=== PATIENT | female | born 1985 | race Caucasian/White ===

== ENCOUNTER 2020-06-07 16:43 | Emergency (ER) | payer OTHER, SELFPAY ==
[2020-06-07 17:01] VITALS: BP 124/60; BP 128/80; PULSE 112; PULSE 96; RESP 16; TEMP 36.4; O2SAT 97; O2SAT 99; BMI 23.1
--- NOTE | 2020-06-07 17:36 | ED.SEIZURE ---
HPI - Seizure General Chief Complaint: Seizure Stated Complaint: seizures Time Seen by Provider: 06/07/20 17:26 Source: patient and EMS Mode of arrival: EMS Limitations: no limitations History of Present Illness HPI Narrative: Patient comes emergency room complaining of 1 seizure. 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 Patient takes Lamictal 200 mg twice a day. Patient states she is very compliant with her medication. States she has been under a lot of stress which could have triggered the seizure. It was a witnessed seizure by her . The patient states that she had an aura, Related Data Home Medications Medication Instructions Recorded Confirmed lamotrigine 100 mg tablet 100 mg PO DAILY 04/09/20 04/10/20 Previous Rx's Medication Instructions Recorded sertraline 100 mg tablet 200 mg PO BEDTIME 90 Days #180 tab 05/31/20 Allergies Allergy/AdvReac Type Severity Reaction Status Date / Time potassium Allergy Unknown panic Verified 06/07/20 17:09 attacks PMFSH Past Medical History Medical History Anxiety, generalized CVA (cerebral vascular accident) Seizures Surgical History History of bilateral tubal ligation History of craniotomy Family History Family History (Updated 04/07/20 @ 11:26 by Pam Hale, A, [facility]) Father No problems noted. Mother No problems noted. Maternal Aunt Colon cancer Brother No problems noted. Brother No problems noted. Sister No problems noted. Daughter No problems noted. Social History Social History Smoked in Last 30 Days: No Use of substances other than those prescribed or required for medical reasons: No Advance Directives: No Advance Directives Information Provided: Yes Physical Exam Vital Signs: Vital Signs: Last Vital Signs Temp 97.5 F 06/07/20 17:01 Pulse 98 06/07/20 17:49 Resp 16 06/07/20 17:49 BP 132/83 06/07/20 17:49 Pulse Ox 97 06/07/20 17:49 Body Mass Index 23.1 Appearance: Alert. Oriented X3. No acute distress. Seems mildly postictal Eyes: Pupils equal, round and reactive to light. ENT: Pharynx normal. Neck: Normal inspection. Neck supple. No lymph nodes noted. No crepitus CVS: Normal heart rate and rhythm. Pulses normal. Normal S1 and S2 Respiratory: No respiratory distress. Breath sounds normal. No Wheezing. No rales Abdomen: Soft and nontender. No rigidity. No distention. good BS x4 Skin: Skin warm and dry. Normal skin color. Normal skin turgor. Extremities: No lower extremity edema. No lower extremity edema. No Lacerations. No Rash, chronic contracture on the left upper extremity Neuro: Oriented X 3. No motor deficit. No sensory deficit. Moving all extermities. No slurred speech. Course Course Course Narrative: Patient has not had any seizures since she got to the emergency room. Patient is feeling back to normal. Patient was given 1 dose of lamotrigine when she got here, and her regular home dose dose prior to discharge. Patient will call tomorrow her neurologist' office in [place] MDM - Seizure Lab Data Result diagrams: 06/07/20 18:03 06/07/20 19:20 Labs: Lab Results 06/07/20 06/07/20 06/07/20 Range/Units 18:03 18:03 18:04 WBC 11.7 H (4.8-10.8) X10*3/uL RBC 4.59 (4.20-5.50) X10*6/uL Hgb 13.8 (12.0-16.0) g/dl Hct 43.4 (37-47) % MCV 94.6 (80-98) fL MCH 30.1 (27.0-33.0) pg MCHC 31.8 (31.0-35.0) g/dl RDW 13.0 (11.0-16.0) % Plt Count 366 (160-400) X10*3/uL MPV 8.8 L (9.4-12.3) fL Immature Gran % (Auto) 0.2 (0.0-0.4) % Neut % (Auto) 80.0 H (45-73) % Lymph % (Auto) 12.4 L (20-40) % [place] % (Auto) 6.8 (2-11) % Eos % (Auto) 0.3 (0-4) % Baso % (Auto) 0.3 (0-2) % Lymph # (Auto) 1.5 (1.2-4.9) X10*3/uL [place] # (Auto) 0.8 (0.1-1.2) X10*3/uL Eos # (Auto) 0.0 (0.0-0.4) X10*3/uL Baso # (Auto) 0.0 (0.0-0.2) X10*3/uL Abs Immat Gran (auto) 0.02 (0.00-0.03) X10*3/uL Absolute Neuts (auto) 9.4 H (2.0-8.3) X10*3/uL Absolute Nucleated RBC 0.000 (0.0-0.012) X10*3/uL Nucleated RBC % (auto) 0.0 (0.0-0.2) /100WBC Sodium Cancelled Potassium Cancelled Chloride Cancelled Carbon Dioxide Cancelled Anion Gap Cancelled BUN Cancelled Creatinine Cancelled Estim Creat Clear Calc Cancelled Estimated GFR Cancelled Random Glucose Cancelled Calcium Cancelled Total Bilirubin Cancelled Direct Bilirubin Cancelled AST Cancelled ALT Cancelled Alkaline Phosphatase Cancelled Total Protein Cancelled Albumin Cancelled Urine Color Urine Appearance Urine pH (5.0-8.0) Ur Specific [place] (1.005-1.025) Urine Protein (NEG-TRACE) MG/DL Urine Glucose (UA) (NEG) MG/DL Urine Ketones (NEG) MG/DL Urine Blood (NEG) Urine Nitrite (NEG) Ur Leukocyte Esterase (NEG) Urine Test (NEGATIVE) Lamotrigine Cancelled 06/07/20 06/07/20 06/07/20 Range/Units 18:04 19:20 19:20 WBC (4.8-10.8) X10*3/uL RBC (4.20-5.50) X10*6/uL Hgb (12.0-16.0) g/dl Hct (37-47) % MCV (80-98) fL MCH (27.0-33.0) pg MCHC (31.0-35.0) g/dl RDW (11.0-16.0) % Plt Count (160-400) X10*3/uL MPV (9.4-12.3) fL Immature Gran % (Auto) (0.0-0.4) % Neut % (Auto) (45-73) % Lymph % (Auto) (20-40) % [place] % (Auto) (2-11) % Eos % (Auto) (0-4) % Baso % (Auto) (0-2) % Lymph # (Auto) (1.2-4.9) X10*3/uL [place] # (Auto) (0.1-1.2) X10*3/uL Eos # (Auto) (0.0-0.4) X10*3/uL Baso # (Auto) (0.0-0.2) X10*3/uL Abs Immat Gran (auto) (0.00-0.03) X10*3/uL Absolute Neuts (auto) (2.0-8.3) X10*3/uL Absolute Nucleated RBC (0.0-0.012) X10*3/uL Nucleated RBC % (auto) (0.0-0.2) /100WBC Sodium 137 Potassium 4.3 Chloride 100 Carbon Dioxide 28 Anion Gap 13 BUN 10 Creatinine 0.86 Estim Creat Clear Calc 97.2 Estimated GFR > 60 Random Glucose 124 H Calcium 10.0 Total Bilirubin 0.3 Direct Bilirubin < 0.2 AST 12 ALT 15 Alkaline Phosphatase 71 Total Protein 8.0 Albumin 4.7 Urine Color YELLOW Urine Appearance CLEAR Urine pH 6.0 (5.0-8.0) Ur Specific [place] 1.025 (1.005-1.025) Urine Protein NEG (NEG-TRACE) MG/DL Urine Glucose (UA) NEG (NEG) MG/DL Urine Ketones NEG (NEG) MG/DL Urine Blood NEG (NEG) Urine Nitrite NEG (NEG) Ur Leukocyte Esterase NEG (NEG) Urine Test NEGATIVE (NEGATIVE) Lamotrigine Discharge Plan Discharge Clinical Impression: Generalized seizure Patient Disposition: Home, Self-Care Instructions: Generalized Tonic Clonic Seizures (ED) Additional Instructions: Please follow-up with your neurologist tomorrow. Please follow-up with your primary care physician tomorrow. If you have any worsening or new symptoms, please return to the emergency room or call 911 Prescriptions: No Action sertraline 100 mg tablet 200 mg PO BEDTIME 90 Days Qty: 180 RF: 1 lamotrigine 100 mg tablet 100 mg PO DAILY RF: 0
[2020-06-07] MEDS: lamoTRIgine 100 MG TABLET 200 MG PO ×2 (17:47→20:32)
[2020-06-07] MEDS: Acetaminophen 325 MG TABLET 650 MG PO (17:47)
[2020-06-07 17:49] VITALS: BP 132/83; PULSE 98; RESP 16; O2SAT 97
[2020-06-07 18:10] LABS: MANUAL DIFF FLAG NO
[2020-06-07 18:11] LABS: Basophils Percent Auto 0.3 % (0-2); Eosinophils Percent Auto 0.3 % (0-4); Hematocrit 43.4 % (37-47); Hemoglobin 13.8 g/dl (12.0-16.0); Imm Gran Abs Auto 0.02 X10*3/uL (0.00-0.03); Imm Gran Pct Auto 0.2 % (0.0-0.4); Lymphocytes Absolute Auto 1.5 X10*3/uL (1.2-4.9); Lymphocytes Percent Auto 12.4 % (20-40); Mean Corpuscular HGB Conc 31.8 g/dl (31.0-35.0); Mean Corpuscular Hemoglobin 30.1 pg (27.0-33.0); Mean Corpuscular Volume 94.6 fL (80-98); Mean Platelet Volume 8.8 fL (9.4-12.3); Monocytes Absolute Auto 0.8 X10*3/uL (0.1-1.2); Monocytes Percent Auto 6.8 % (2-11); Neutrophils Absolute Auto 9.4 X10*3/uL (2.0-8.3); Platelet Count 366 X10*3/uL (160-400); Red Blood Count 4.59 X10*6/uL (4.20-5.50); White Blood Count 11.7 X10*3/uL (4.8-10.8)
[2020-06-07 18:13] LABS: Glucose Urine UA NEG (NEG); Leukocyte Esterase Urine NEG (NEG); Nitrite Urine NEG (NEG); Specific Gravity - Urine 1.025 (1.005-1.025); Urine Blood NEG (NEG); Urine Ketones NEG (NEG); Urine Protein NEG (NEG-TRACE)
[2020-06-07 18:15] LABS: Appearance Urine CLEAR; Color Urine YELLOW
[2020-06-07 18:16] LABS: UPreg QC Valid YES; Urine Pregnancy NEGATIVE (NEGATIVE)
[2020-06-07 19:52] LABS: Anion Gap 13 (12-20); Blood Urea Nitrogen 10 mg/dL (9-16); Carbon Dioxide 28 mmol/L (22-29); Chloride 100 mmol/L (96-108); Creatinine Clr Calc Pharmacy 97.2; Estimated Glomerular Filt Rate > 60; Glucose Random 124 mg/dL (60-115); Potassium 4.3 mmol/l (3.3-5.1); Sodium 137 mmol/L (135-145)
[2020-06-07 19:54] LABS: Alanine Aminotransferase 15 U/L (0-31); Albumin Level 4.7 g/dL (3.5-5.0); Alkaline Phosphatase 71 U/L (39-117); Aspartate Amino Transferase 12 U/L (5-31); Bilirubin Direct < 0.2 mg/dL (0.0-0.5); Bilirubin Total 0.3 mg/dL (0.0-1.0)
[2020-06-07] MEDS: Sertraline HCL 100 MG TABLET 200 MG PO (20:32)
[2020-06-13 17:23] LABS: Lamotrigine Lamictal 10.1 mcg/mL (4.0-18.0)
== END 2020-06-07 20:46 | disposition home or self-care (01) ==
PROVIDERS: Emergency Provider Emergency Medicine; PCP Internal Medicine
DX: G40.409 Other generalized epilepsy and epileptic syndromes, not intractable, without status epilepticus (principal); F41.1 Generalized anxiety disorder
CPT/HCPCS: 36415; 80048; 80076; 80175; 81003; 81025; 85025; 99283; 99284

== ENCOUNTER 2020-07-18 13:33 | Emergency (ER) | payer OTHER, SELFPAY ==
[2020-07-18 13:59] VITALS: BP 122/85; BP 126/72; PULSE 102; PULSE 91; RESP 17; TEMP 36.7; O2SAT 98; O2SAT 99; BMI 21.8
--- NOTE | 2020-07-18 14:06 | PC.NURSE ---
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
[2020-07-18 14:48] LABS: MANUAL DIFF FLAG NO
[2020-07-18 14:50] LABS: Basophils Percent Auto 0.5 % (0-2); Eosinophils Absolute Auto 0.1 X10*3/uL (0.0-0.4); Eosinophils Percent Auto 1.1 % (0-4); Hematocrit 39.7 % (37-47); Hemoglobin 12.5 g/dl (12.0-16.0); Imm Gran Abs Auto 0.01 X10*3/uL (0.00-0.03); Imm Gran Pct Auto 0.2 % (0.0-0.4); Lymphocytes Absolute Auto 1.4 X10*3/uL (1.2-4.9); Lymphocytes Percent Auto 21.5 % (20-40); Mean Corpuscular HGB Conc 31.5 g/dl (31.0-35.0); Mean Corpuscular Volume 95.4 fL (80-98); Mean Platelet Volume 8.4 fL (9.4-12.3); Monocytes Absolute Auto 0.5 X10*3/uL (0.1-1.2); Monocytes Percent Auto 7.8 % (2-11); Neutrophils Absolute Auto 4.4 X10*3/uL (2.0-8.3); Neutrophils Percent Auto 68.9 % (45-73); Platelet Count 320 X10*3/uL (160-400); Red Blood Count 4.16 X10*6/uL (4.20-5.50); Red Cell Distribution Width 12.7 % (11.0-16.0); White Blood Count 6.3 X10*3/uL (4.8-10.8)
[2020-07-18 14:55] LABS: Prothrombin Time 11.7 SEC (10.8-13.0)
[2020-07-18 14:57] LABS: Partial Thromboplastin Time 37.5 SEC (24.1-38.0)
[2020-07-18 15:20] LABS: Alanine Aminotransferase 11 U/L (0-31); Albumin Level 4.5 g/dL (3.5-5.0); Alkaline Phosphatase 70 U/L (39-117); Anion Gap 12 (12-20); Aspartate Amino Transferase 10 U/L (5-31); Bilirubin Total 0.2 mg/dL (0.0-1.0); Blood Urea Nitrogen 15 mg/dL (9-16); Calcium 9.7 mg/dL (8.4-10.2); Carbon Dioxide 28 mmol/L (22-29); Chloride 103 mmol/L (96-108); Creatinine Clr Calc Pharmacy 104.5; Estimated Glomerular Filt Rate > 60; Glucose Random 96 mg/dL (60-115); Potassium 4.7 mmol/L (3.3-5.1); Sodium 138 mmol/L (135-145); Total Protein 7.8 g/dL (6.5-8.0)
[2020-07-18 15:40] LABS: Appearance Urine CLEAR; Color Urine YELLOW; Glucose Urine UA NEG (NEG); Leukocyte Esterase Urine NEG (NEG); Nitrite Urine NEG (NEG); PH 6.5 (5.0-8.0); Urine Blood NEG (NEG); Urine Ketones NEG (NEG); Urine Protein NEG (NEG-TRACE)
[2020-07-18 16:00] VITALS: BP 134/88; PULSE 77; RESP 18; TEMP 36.7; O2SAT 100
[2020-07-18 16:17] LABS: Bacteria Urine TRACE /LPF; RBC Urine 0-2 /HPF (0); Squamous Epithelial Cell Urine 2+ /LPF; WBC Urine 0-2 /HPF (0-4)
[2020-07-18 16:33] LABS: Amphetamine Screen Urine Not Detected (Not Detect); Barbiturates, Urine Not Detected (Not Detect); Benzodiazepines Screen Urine POSITIVE (Not Detect); Cannabinoid Screen Urine POSITIVE (Not Detect); Cocaine Screen Urine Not Detected (Not Detect); Opiate Screen Urine Not Detected (Not Detect); Phencyclidine Screen Urine Not Detected (Not Detect)
== END 2020-07-18 16:18 | disposition home or self-care (01) ==
PROVIDERS: Nurse Practitioner Primary Care; Emergency Provider Emergency Medicine; PCP Internal Medicine
DX: R56.9 Unspecified convulsions (principal); R29.700 NIHSS score 0; Z79.899 Other long term (current) drug therapy
CPT/HCPCS: 36415; 80053; 80307; 81001; 85025; 85610; 85730; 99284

== ENCOUNTER 2021-11-03 09:44 | Inpatient (IN) | payer OTHER, SELFPAY ==
--- NOTE | 2021-11-03 09:59 | ED.PSYCH ---
HPI - Psych General Chief Complaint: Psychiatric Symptoms Stated Complaint: crisis Time Seen by Provider: 11/03/21 09:59 Source: patient Mode of arrival: ambulatory Limitations: no limitations History of Present Illness complaint: feels depressed Onset (ago): day(s) Duration: constant History of same: Yes Relieving factors: none Exacerbating factors: other (issues with daughter) Context: significant life stressor Associated psychiatric symptoms: depression Associated symptoms: denies other symptoms Treatments prior to arrival: none Related Data Home Medications Medication Instructions Recorded Confirmed lamotrigine 100 mg tablet 200 mg PO BEDTIME 11/03/21 11/03/21 lamotrigine 100 mg tablet 250 mg PO DAILY 11/03/21 11/03/21 sertraline 100 mg tablet 1 tab PO BEDTIME 11/03/21 11/03/21 Previous Rx's Medication Instructions Recorded naproxen 500 mg tablet 500 mg PO BID PRN 7 Days #14 tab 10/26/21 Allergies Allergy/AdvReac Type Severity Reaction Status Date / Time potassium AdvReac Intermediate panic Verified 10/26/21 10:01 attacks Review of Systems Review of Systems: Constitutional : No Fever, No Chills ENT/Mouth : No Ear Pain, No Nasal Congestion, No sore throat Eyes: No Eye Pain, No Swelling, No Redness Cardiovascular : No Chest Pain, No SOB Respiratory : No Cough, No Sputum, No Dyspnea Gastrointestinal : No Nausea, No Vomiting, No Diarrhea, No Hematochezia, No Melena Genitourinary : No Dysuria, No Urinary Frequency, No Hematuria Musculoskeletal : No Myalgias Skin : No Skin Lesions, No rash Neuro : No Weakness, No Numbness, No Paresthesias, No Dizziness, No Headache Psych : positive Anxiety, positive Depression, no SI/HI Heme/Lymph: No Lymphadenopathy Endocrine : No Polyuria, No Polydipsia All other systems reviewed and are negative [facility] Past Medical History Attestation statement: The following information was validated with the patient. Medical History Anxiety, generalized CVA (cerebral vascular accident) Seizures TBI (traumatic brain injury) Surgical History History of bilateral tubal ligation History of brain shunt History of craniotomy Family History Family History Father No problems noted. Mother No problems noted. Maternal Aunt Colon cancer Brother No problems noted. Brother No problems noted. Sister No problems noted. Daughter No problems noted. Other Mental health disorder Substance use disorder Social History Social History Housing: Apartment Alcohol intake: never Patient Tobacco Use Status: Never used Tobacco e-Cigarette/Vaping Use: Never Used Substance Use Type: Marijuana Advance Directives: No Advance Directives Information Provided: No service: No Current occupational status: unemployed Cognitive needs: No Hearing needs: No Vision needs: No Physical Exam Vital Signs: Vital Signs: Last Vital Signs Temp 98.9 F 11/03/21 10:03 Pulse 106 H 11/03/21 10:03 Resp 16 11/03/21 12:00 BP 173/74 H 11/03/21 10:27 Pulse Ox 98 11/03/21 10:27 BMI result Body Mass Index 24.3 Appearance: Alert. Oriented X3. No acute distress. Eyes: Pupils equal, round and reactive to light. ENT: Pharynx normal. Neck: Normal inspection. Neck supple. CVS: Normal heart rate and rhythm. Pulses normal. Respiratory: No respiratory distress. Breath sounds normal. Abdomen: Soft and non-tender. Skin: Skin warm and dry. Normal skin color. Normal skin turgor. Extremities: No lower extremity edema. No calf ttp Neuro: Oriented X 3. chronic L sided weakness. No sensory deficit. Cn2-12 intact other than L sided mild facial droop and chronic L eye peripheral vision loss Course Course Course Narrative: Physician observation started at 1134am Patient placed in physician observation because the patient needed more time for BHN to assess the need for psych admission. At the time observation was started the patient's vitals were stable, patient is alert and oriented Neuro: nonfocal, CV RRR, Lungs clear Physician observation ended at 239pm Patient seen plan is for inpatient admission per CARE team. NAD, lungs clear, CV RRR, Abd nontender, Neuro intact. Disposition is for M-3 MDM - Psych MDM Narrative Medical decision making narrative: 36 yo female with hx of epilepsy and traumatic TBI with resulting [employer] shunt and CVA L sided residual weakness comes in with depression related to family issues - at this time will need labs, BHN consult. Arielo per their recommendations Lab Data Result diagrams: 11/03/21 10:48 11/03/21 10:47 Labs: Lab Results 11/03/21 11/03/21 11/03/21 Range/Units 10:38 10:38 10:47 WBC (4.8-10.8) X10*3/uL RBC (4.20-5.50) X10*6/uL Hgb (12.0-16.0) g/dl Hct (37.0-47.0) % MCV (80.0-98.0) fL MCH (27.0-33.0) pg MCHC (31.0-35.0) g/dl RDW (11.0-16.0) % Plt Count (160-400) X10*3/uL MPV (9.4-12.3) fL Immature Gran % (Auto) (0.0-0.4) % Neut % (Auto) (45-73) % Lymph % (Auto) (20-40) % [place] % (Auto) (2-11) % Eos % (Auto) (0-4) % Baso % (Auto) (0-2) % Lymph # (Auto) (1.2-4.9) X10*3/uL [place] # (Auto) (0.1-1.2) X10*3/uL Eos # (Auto) (0.0-0.4) X10*3/uL Baso # (Auto) (0.0-0.2) X10*3/uL Abs Immat Gran (auto) (0.00-0.03) X10*3/uL Absolute Neuts (auto) (2.0-8.3) x10*3/uL Absolute Nucleated RBC (0.0-0.012) X10*3/uL Nucleated RBC % (auto) (0.0-0.2) /100WBC Sodium 137 (135-145) mmol/L Potassium 4.2 (3.3-5.1) mmol/L Chloride 108 (96-108) mmol/L Carbon Dioxide 22 (22-29) mmol/L Anion Gap 11 L (12-20) BUN 10 (9-16) mg/dL Creatinine 0.85 (0.5-1.4) mg/dL Estim Creat Clear Calc 96.5 Estimated GFR > 60 Random Glucose 131 H (60-115) mg/dL Calcium 10.3 H D (8.4-10.2) mg/dL Magnesium 2.1 (1.6-2.6) mg/dL Total Bilirubin 0.4 (0.0-1.0) mg/dL Direct Bilirubin < 0.2 (0.0-0.5) mg/dL AST 12 (5-31) U/L ALT 18 (0-31) U/L Alkaline Phosphatase 76 (39-117) U/L Total Protein 8.4 H (6.5-8.0) g/dL Albumin 4.4 (3.5-5.0) g/dL Urine Test NEGATIVE (NEGATIVE) Urine Opiates Screen Not Detected (Not Detect) Urine Fentanyl Screen Not Detected (Not Detect) Ur Barbiturates Screen Not Detected (Not Detect) Ur Phencyclidine Scrn Not Detected (Not Detect) Ur Amphetamines Screen Not Detected (Not Detect) U Benzodiazepines Scrn Not Detected (Not Detect) Urine Cocaine Screen Not Detected (Not Detect) U Marijuana (THC) Screen POSITIVE H (Not Detect) COVID-19 ([facility]) (Negative) COVID-19 Clin Com 11/03/21 11/03/21 Range/Units 10:48 10:48 WBC 6.4 (4.8-10.8) X10*3/uL RBC 4.28 (4.20-5.50) X10*6/uL Hgb 12.4 (12.0-16.0) g/dl Hct 39.1 (37.0-47.0) % MCV 91.4 (80.0-98.0) fL MCH 29.0 (27.0-33.0) pg MCHC 31.7 (31.0-35.0) g/dl RDW 13.5 (11.0-16.0) % Plt Count 366 (160-400) X10*3/uL MPV 8.3 L (9.4-12.3) fL Immature Gran % (Auto) 0.2 (0.0-0.4) % Neut % (Auto) 69.1 (45-73) % Lymph % (Auto) 19.4 L (20-40) % [place] % (Auto) 6.9 (2-11) % Eos % (Auto) 3.8 (0-4) % Baso % (Auto) 0.6 (0-2) % Lymph # (Auto) 1.2 (1.2-4.9) X10*3/uL [place] # (Auto) 0.4 (0.1-1.2) X10*3/uL Eos # (Auto) 0.2 (0.0-0.4) X10*3/uL Baso # (Auto) 0.0 (0.0-0.2) X10*3/uL Abs Immat Gran (auto) 0.01 (0.00-0.03) X10*3/uL Absolute Neuts (auto) 4.4 (2.0-8.3) x10*3/uL Absolute Nucleated RBC 0.000 (0.0-0.012) X10*3/uL Nucleated RBC % (auto) 0.0 (0.0-0.2) /100WBC Sodium (135-145) mmol/L Potassium (3.3-5.1) mmol/L Chloride (96-108) mmol/L Carbon Dioxide (22-29) mmol/L Anion Gap (12-20) BUN (9-16) mg/dL Creatinine (0.5-1.4) mg/dL Estim Creat Clear Calc Estimated GFR Random Glucose (60-115) mg/dL Calcium (8.4-10.2) mg/dL Magnesium (1.6-2.6) mg/dL Total Bilirubin (0.0-1.0) mg/dL Direct Bilirubin (0.0-0.5) mg/dL AST (5-31) U/L ALT (0-31) U/L Alkaline Phosphatase (39-117) U/L Total Protein (6.5-8.0) g/dL Albumin (3.5-5.0) g/dL Urine Test (NEGATIVE) Urine Opiates Screen (Not Detect) Urine Fentanyl Screen (Not Detect) Ur Barbiturates Screen (Not Detect) Ur Phencyclidine Scrn (Not Detect) Ur Amphetamines Screen (Not Detect) U Benzodiazepines Scrn (Not Detect) Urine Cocaine Screen (Not Detect) U Marijuana (THC) Screen (Not Detect) COVID-19 ([facility]) Negative (Negative) COVID-19 Clin Com See Note Discharge Plan Discharge Clinical Impression: Depression Qualifiers: Depression Type: unspecified Qualified Code(s): F32.A - Depression, unspecified Patient Disposition: Admitted As Inpatient
[2021-11-03 10:03] VITALS: BP 136/85; PULSE 106; RESP 18; TEMP 37.2; O2SAT 98; BMI 24.3
[2021-11-03 10:27] VITALS: BP 173/74; RESP 18; O2SAT 98
[2021-11-03 10:56] LABS: MANUAL DIFF FLAG NO
[2021-11-03 10:57] LABS: Basophils Percent Auto 0.6 % (0-2); Eosinophils Absolute Auto 0.2 X10*3/uL (0.0-0.4); Eosinophils Percent Auto 3.8 % (0-4); Hematocrit 39.1 % (37.0-47.0); Hemoglobin 12.4 g/dl (12.0-16.0); Imm Gran Abs Auto 0.01 X10*3/uL (0.00-0.03); Imm Gran Pct Auto 0.2 % (0.0-0.4); Lymphocytes Absolute Auto 1.2 X10*3/uL (1.2-4.9); Lymphocytes Percent Auto 19.4 % (20-40); Mean Corpuscular HGB Conc 31.7 g/dl (31.0-35.0); Mean Corpuscular Volume 91.4 fL (80.0-98.0); Mean Platelet Volume 8.3 fL (9.4-12.3); Monocytes Absolute Auto 0.4 X10*3/uL (0.1-1.2); Monocytes Percent Auto 6.9 % (2-11); Neutrophils Absolute Auto 4.4 x10*3/uL (2.0-8.3); Neutrophils Percent Auto 69.1 % (45-73); Platelet Count 366 X10*3/uL (160-400); Red Blood Count 4.28 X10*6/uL (4.20-5.50); Red Cell Distribution Width 13.5 % (11.0-16.0); White Blood Count 6.4 X10*3/uL (4.8-10.8)
[2021-11-03 11:01] LABS: UPreg QC Valid YES; Urine Pregnancy NEGATIVE (NEGATIVE)
[2021-11-03 11:13] LABS: Amphetamine Screen Urine Not Detected (Not Detect); Barbiturates, Urine Not Detected (Not Detect); Benzodiazepines Screen Urine Not Detected (Not Detect); Cannabinoid Screen Urine POSITIVE (Not Detect); Cocaine Screen Urine Not Detected (Not Detect); Fentanyl, urine Not Detected (Not Detect); Opiate Screen Urine Not Detected (Not Detect); Phencyclidine Screen Urine Not Detected (Not Detect)
[2021-11-03 11:17] LABS: Alanine Aminotransferase 18 U/L (0-31); Albumin Level 4.4 g/dL (3.5-5.0); Alkaline Phosphatase 76 U/L (39-117); Anion Gap 11 (12-20); Aspartate Amino Transferase 12 U/L (5-31); Bilirubin Direct < 0.2 mg/dL (0.0-0.5); Bilirubin Total 0.4 mg/dL (0.0-1.0); Blood Urea Nitrogen 10 mg/dL (9-16); Calcium 10.3 mg/dL (8.4-10.2); Carbon Dioxide 22 mmol/L (22-29); Chloride 108 mmol/L (96-108); Creatinine Clr Calc Pharmacy 96.5; Estimated Glomerular Filt Rate > 60; Glucose Random 131 mg/dL (60-115); Magnesium 2.1 mg/dL (1.6-2.6); Potassium 4.2 mmol/L (3.3-5.1); Sodium 137 mmol/L (135-145); Total Protein 8.4 g/dL (6.5-8.0)
[2021-11-03 11:23] LABS: COVID-19 Test Negative (Negative); IDNOW Serial# 16C4AD1C
--- NOTE | 2021-11-03 11:41 | PC.NURSE ---
Smart sheet filled out at this time.
[2021-11-03 12:00] VITALS: RESP 16
--- NOTE | 2021-11-03 13:45 | PC.NURSE ---
contact made to [facility] regarding eta on clinician- per carlos from [facility] will be evaluated after 1500 today.
--- NOTE | 2021-11-03 13:46 | PHA.MEDREC ---
Pharmacy Consult ? Medication Reconciliation Pharmacy has completed the medication reconciliation. spoke with pt
--- NOTE | 2021-11-03 14:47 | PC.NURSE ---
Pt seen this date for individual OT tx. Focus of tx session identifying leisure interests. Pt reports she enjoys reading, blogging, and coloring she expresses dislikes include word searches and cross word puzzles. Pt provided with several options of reading material, blank paper with safety pencil for pre-writing per blog, and several coloring pages. Pt presents with cheerful mood however does identify several stressors in her life and engaging in leisure activities has been an effective coping strategy for managing her mood.
[2021-11-03 20:01] VITALS: BP 131/61; PULSE 101; RESP 18; TEMP 37.1; O2SAT 98
[2021-11-03] MEDS: lamoTRIgine 100 MG TABLET 200 MG PO (21:44)
[2021-11-03] MEDS: Sertraline HCL 100 MG TABLET PO (21:44)
[2021-11-04 06:00] VITALS: BP 115/68; PULSE 99; RESP 16; TEMP 36.8; O2SAT 99
--- NOTE | 2021-11-04 07:20 | PC.NURSE ---
Patient in bed asleep when this law writer approached to complete Admission; Admission Assessment was completed off Crisis eval, and Medical Record. Patient on Close Observation d/t wheelchair. Patient woken for morning vitals at 6:30am and upon further assessment patient states she does not use a wheelchair at home, she has a brace with sneaker for her left leg, which is with her belongings at this time. Will pass on to oncoming shift need for an order for brace and sneaker.
[2021-11-04 08:47] LABS: Estimated Average Glucose 97 mg/dL
[2021-11-04 08:51] LABS: Cholesterol 208 mg/dL; HDL Cholesterol 35 mg/dL; LDL Cholesterol Calculated 155 mg/dl; Magnesium 2.3 mg/dL (1.6-2.6); Triglycerides 94 mg/dL
[2021-11-04 09:11] LABS: Free T4 (Free Thyroxine) 1.06 ng/dL (0.71-1.85); Thyroid Stimulating Hormone 1.14 uIU/mL (0.32-4.0)
[2021-11-04] MEDS: lamoTRIgine 100 MG TABLET 250 MG PO (09:30)
[2021-11-04 09:33] LABS: Folate 3.7 ng/mL (> or = 4.0); Vitamin B12 580 pg/mL (200-900)
[2021-11-04 10:41] VITALS: BP 115/68; PULSE 99; O2SAT 99
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
[2021-11-04 18:00] VITALS: BP 121/80; PULSE 94; TEMP 37.3; O2SAT 98
[2021-11-04] MEDS: Lithium Carbonate 300 MG TABLET 150 MG PO (21:04)
[2021-11-04] MEDS: Sertraline HCL 100 MG TABLET PO (21:04)
[2021-11-04] MEDS: lamoTRIgine 100 MG TABLET 200 MG PO (21:04)
[2021-11-05 06:00] VITALS: BP 116/64; PULSE 90; TEMP 36.6; O2SAT 99
[2021-11-05] MEDS: Lithium Carbonate 300 MG TABLET 150 MG PO ×2 (09:12→20:50)
[2021-11-05] MEDS: lamoTRIgine 100 MG TABLET 250 MG PO (09:12)
[2021-11-05] MEDS: Folic Acid 1 MG TABLET PO (09:12)
[2021-11-05] MEDS: Cholecalciferol (Vitamin D3) 10 MCG TABLET PO (09:12)
[2021-11-05 17:37] VITALS: BP 135/62; PULSE 81
[2021-11-05] MEDS: lamoTRIgine 100 MG TABLET 200 MG PO (20:49)
[2021-11-05] MEDS: Sertraline HCL 25 MG TABLET 75 MG PO (20:50)
[2021-11-05] MEDS: NaPROXEN 500 MG TABLET PO (20:55)
--- NOTE | 2021-11-05 20:55 | HO.PSYCHPN ---
Subjective Subjective Date of Service: 11/05/21 Reason For Visit: Depression, SI Subjective Notes: Land Warning and Conditional Voluntary Healthcare Proxy: No Guardianship: No Medical Problems Affecting Mental Status: No Interim History: Patient seen and discussed with team. Has a 1:1 due to wheelchair. Pt still needs EKG. Patient evaluated today and upon interview she reports she feels more tired than usual. Discusses her stressors at home, i.e. her mom, daughter. Says her mom is her FACULTY PHYSICIAN and that I would love to have a FACULTY PHYSICIAN thats not family but doesnt know how to tell her that. Denies SI. Feels safe here. Says she has increased anxiety when she thinks of going back home, everything is on top of me. Says she needs a therapist and psych provider. She is interested in getting off zoloft because she is worried about having breakthrough seizures on it. Mood is okay. In the milieu, patient is safe and appropriate in behavior. Denies SI/SIB/HI upon inquiry. Denies irritability or assaultive ideation. Says she feels safe. Medication Compliance: Yes Side effects from medications: No Attending Groups: Yes Review of Systems Acute medical concerns: No Medical Review of Systems: unchanged Mental Status Exam Mental Status Exam Narrative: Patient Appearance:?Appropriate Patient Orientation:?Person, Place, Time and Situation Level of Consciousness:?Alert Patient Behavior:?Talkative and Good Eye Contact Mood Description:?Depressed and Anxious Affect Description:?Flat Patient Cognition Impaired:?No Ability to Follow Directions:?Good Speech Pattern:?Spontaneous Speech Memory Description:?Intact Hallucinations:?None Delusions:?Not Present Thought Process:?Rumination Thought Content:?positive for [place], positive for Circum[place], positive for Perseveration and positive for Suicidal Ideation Depressive Symptoms:?Increased Anxiety, Increased Irritability, Feelings of Worthlessness, Hopelessness, Unexplained Headaches, Unhappiness, Thoughts of /Suicide, Low Self Esteem and Difficulty Concentrating Judgment:?Fair Diagnostics Vital Signs (24Hr): Vital Signs - 24 hr 11/05/21 06:00 11/05/21 17:37 Temperature 97.9 F Pulse Rate 90 81 Blood Pressure 116/64 135/62 Pulse Oximetry 99 BMI result Body Mass Index 24.3 Labs Results: 11/03/21 10:48 11/03/21 10:47 Labs: Laboratory Results - last 48 hr 11/04/21 11/04/21 11/04/21 07:44 07:44 07:44 Estimat Average Glucose 97 Hemoglobin A1c % 5.0 Magnesium 2.3 Triglycerides 94 Cholesterol 208 LDL Cholesterol, Calc 155 HDL Cholesterol 35 Vitamin B12 Cancelled Folate Cancelled TSH 1.14 Free T4 1.06 11/04/21 07:44 Estimat Average Glucose Hemoglobin A1c % Magnesium Triglycerides Cholesterol LDL Cholesterol, Calc HDL Cholesterol Vitamin B12 580 Folate 3.7 L TSH Free T4 Medications Medications Current Medications Acetaminophen (Acetaminophen 325 Mg Tablet) 650 mg PO Q6H PRN PRN Reason: Headache/Pain Mild Scale (1-3) Al Hydroxide/Mg Hydroxide (Magnesium Hydrox/Alum Hydrox 30 Ml Oral.Susp) 30 ml PO Q6H PRN PRN Reason: Heartburn/Nausea Folic Acid (Folic Acid 1 Mg Tablet) 1 mg PO DAILY [facility] Last Admin: 11/05/21 09:12 Dose: 1 mg Documented by: Hydroxyzine HCl (Hydroxyzine Hcl 25 Mg Tablet) 25 mg PO Q6H PRN PRN Reason: Anxiety Lamotrigine (Lamotrigine 100 Mg Tablet) 200 mg PO BEDTIME [facility] Last Admin: 11/05/21 20:49 Dose: 200 mg Documented by: Lamotrigine (Lamotrigine 100 Mg Tablet) 250 mg PO DAILY [facility] Last Admin: 11/05/21 09:12 Dose: 250 mg Documented by: [place] Carbonate ([place] Carbonate 300 Mg Tablet) 150 mg PO BID [facility] Last Admin: 11/05/21 20:50 Dose: 150 mg Documented by: Magnesium Hydroxide (Milk Of Magnesia 30 Ml Oral.Susp) 30 ml PO DAILY PRN PRN Reason: Constipation Naproxen (Naproxen 500 Mg Tablet) 500 mg PO BID PRN PRN Reason: Pain, Moderate (Pain Scale 4-6 Last Admin: 11/05/21 20:55 Dose: 500 mg Documented by: Sertraline HCl (Sertraline Hcl 25 Mg Tablet) 75 mg PO BEDTIME [facility] Last Admin: 11/05/21 20:50 Dose: 75 mg Documented by: Trazodone HCl (Trazodone Hcl 50 Mg Tablet) 50 mg PO BEDTIME PRN PRN Reason: Insomnia Vitamin D (Cholecalciferol (Vitamin D3) 10 Mcg Tablet) 10 mcg PO DAILY [facility] Last Admin: 11/05/21 09:12 Dose: 10 mcg Documented by: Allergies Allergies Allergy/AdvReac Type Severity Reaction Status Date / Time potassium AdvReac Intermediate panic Verified 10/26/21 10:01 attacks Assessment & Plan Assessment & Plan (1) Depression: Qualifiers: Depression Type: unspecified Qualified Code(s): F32.A - Depression, unspecified Status: Acute Code(s): F32.A - Depression, unspecified (2) Cannabis use disorder, mild, abuse: Status: Acute Code(s): F12.10 - Cannabis abuse, uncomplicated Plan 36 yo female, hx of TBI, CVA, Seizures, Depression, Anxiety, Mood Lability, especially when she feels that she is negatively attacked and perceives people to be attacking of her, presents with SI and situational crisis where she is feeling overwhelmed with current issues her child is having and attempting to organized treatment. Reports an increase in mood lability, anger, currently taking Lamictal, Sertraline. Recently Sertraline was decreased as pt experienced seizure activity at 200 mg. Plan: [place] 150 mg bid trial to augment Lamictal with titration as tolerated. 11/05/21: decrease zoloft to 75 mg daily due to pt requesting a lower dose due to hx of seizure activity I spent minutes with the patient and/or on the patient floor today, greater than?50% of which was spent counseling/coordinating care. Patient educated on: medication risk/benefits Reason for contiued inpatient stay Substantial Risk for: med/psych decompensation
[2021-11-06] MEDS: Lithium Carbonate 300 MG TABLET 150 MG PO ×2 (08:52→21:24)
[2021-11-06] MEDS: Folic Acid 1 MG TABLET PO (08:53)
[2021-11-06] MEDS: Cholecalciferol (Vitamin D3) 10 MCG TABLET PO (08:53)
[2021-11-06] MEDS: lamoTRIgine 100 MG TABLET 250 MG PO (08:53)
[2021-11-06 08:57] VITALS: BP 125/75; PULSE 95; TEMP 36.8; O2SAT 94
[2021-11-06 18:25] VITALS: BP 120/83; PULSE 111; TEMP 36.7; O2SAT 98
--- NOTE | 2021-11-06 19:12 | P.PNPSI_ITS ---
Subjective Subjective Date of Service: 11/06/21 Reason For Visit: Depression, SI Subjective Notes: Land Warning and Conditional Voluntary Healthcare Proxy: No Guardianship: No Medical Problems Affecting Mental Status: No Interim History: Patient seen and discussed with team. Patient evaluated today and upon interview she says she will still abraham cry a little when I think about certain things. Still wants to get off sertraline but understands to do this slowly to avoid discontinuation syndrome. Interested in team meeting with her mom. Still says she is feeling tired, doesnt want an in crease in lithium because of this.? In the milieu, patient is safe and appropriate in behavior. Denies SI/SIB/HI upon inquiry. Denies irritability or assaultive ideation. Says she feels safe. Medication Compliance: Yes Side effects from medications: No Attending Groups: Yes Review of Systems Acute medical concerns: No Medical Review of Systems: unchanged Mental Status Exam Mental Status Exam Narrative: Patient Appearance:?Appropriate Patient Orientation:?Person, Place, Time and Situation Level of Consciousness:?Alert Patient Behavior:?Talkative and Good Eye Contact Mood Description:?Depressed and Anxious Affect Description:?Flat Patient Cognition Impaired:?No Ability to Follow Directions:?Good Speech Pattern:?Spontaneous Speech Memory Description:?Intact Hallucinations:?None Delusions:?Not Present Thought Process:?Rumination Thought Content:?positive for [place], positive for Circumstantial, positive for Perseveration and positive for Suicidal Ideation Depressive Symptoms:?Increased Anxiety, Increased Irritability, Feelings of Worthlessness, Hopelessness, Unexplained Headaches, Unhappiness, Thoughts of /Suicide, Low Self Esteem and Difficulty Concentrating Judgment:?Fair Diagnostics Vital Signs (24Hr): Vital Signs - 24 hr 11/07/21 06:57 11/07/21 20:40 Temperature 97.1 F 98.4 F Pulse Rate 80 86 Respiratory Rate 18 18 Blood Pressure 116/78 132/83 Pulse Oximetry 97 96 BMI result Body Mass Index 24.3 Labs Results: 11/03/21 10:48 11/03/21 10:47 Medications Medications Current Medications Acetaminophen (Acetaminophen 325 Mg Tablet) 650 mg PO Q6H PRN PRN Reason: Headache/Pain Mild Scale (1-3) Al Hydroxide/Mg Hydroxide (Magnesium Hydrox/Alum Hydrox 30 Ml Oral.Susp) 30 ml PO Q6H PRN PRN Reason: Heartburn/Nausea Diphenhydramine HCl (Diphenhydramine Hcl 25 Mg Tablet) 25 mg PO Q6H PRN PRN Reason: Allergic Reaction Last Admin: 11/07/21 22:50 Dose: 25 mg Documented by: Folic Acid (Folic Acid 1 Mg Tablet) 1 mg PO DAILY [facility] Last Admin: 11/07/21 08:13 Dose: 1 mg Documented by: Lamotrigine (Lamotrigine 100 Mg Tablet) 200 mg PO BEDTIME [facility] Last Admin: 11/07/21 21:50 Dose: 200 mg Documented by: Magnesium Hydroxide (Milk Of Magnesia 30 Ml Oral.Susp) 30 ml PO DAILY PRN PRN Reason: Constipation Naproxen (Naproxen 500 Mg Tablet) 500 mg PO BID PRN PRN Reason: Pain, Moderate (Pain Scale 4-6 Last Admin: 11/05/21 20:55 Dose: 500 mg Documented by: Sertraline HCl (Sertraline Hcl 25 Mg Tablet) 75 mg PO BEDTIME [facility] Last Admin: 11/07/21 21:49 Dose: 75 mg Documented by: Trazodone HCl (Trazodone Hcl 50 Mg Tablet) 50 mg PO BEDTIME PRN PRN Reason: Insomnia Vitamin D (Cholecalciferol (Vitamin D3) 10 Mcg Tablet) 10 mcg PO DAILY [facility] Last Admin: 11/07/21 08:13 Dose: 10 mcg Documented by: Allergies Allergies Allergy/AdvReac Type Severity Reaction Status Date / Time potassium AdvReac Intermediate panic Verified 10/26/21 10:01 attacks Assessment & Plan Assessment & Plan (1) Depression: Qualifiers: Depression Type: unspecified Qualified Code(s): F32.A - Depression, unspecified Status: Acute Code(s): F32.A - Depression, unspecified (2) Cannabis use disorder, mild, abuse: Status: Acute Code(s): F12.10 - Cannabis abuse, uncomplicated Plan 36 yo female, hx of TBI, CVA, Seizures, Depression, Anxiety, Mood Lability, especially when she feels that she is negatively attacked and perceives people to be attacking of her, presents with SI and situational crisis where she is feeling overwhelmed with current issues her child is having and attempting to organized treatment. Reports an increase in mood lability, anger, currently taking Lamictal, Sertraline. Recently Sertraline was decreased as pt experienced seizure activity at 200 mg. Plan: [place] 150 mg bid trial to augment Lamictal with titration as tolerated. 11/05/21: decrease zoloft to 75 mg daily due to pt requesting a lower dose due to hx of seizure activity 11/06/21: continue meds unchanged, pt wants to continue to titrate off se rtraline I spent minutes with the patient and/or on the patient floor today, greater than?50% of which was spent counseling/coordinating care. Patient educated on: medication risk/benefits Reason for contiued inpatient stay Substantial Risk for: med/psych decompensation
[2021-11-06] MEDS: lamoTRIgine 100 MG TABLET 200 MG PO (21:25)
[2021-11-06] MEDS: Sertraline HCL 25 MG TABLET 75 MG PO (21:25)
[2021-11-07 06:57] VITALS: BP 116/78; PULSE 80; RESP 18; TEMP 36.2; O2SAT 97
[2021-11-07] MEDS: Folic Acid 1 MG TABLET PO (08:13)
[2021-11-07] MEDS: Cholecalciferol (Vitamin D3) 10 MCG TABLET PO (08:13)
[2021-11-07] MEDS: Lithium Carbonate 300 MG TABLET 150 MG PO (08:14)
[2021-11-07] MEDS: lamoTRIgine 100 MG TABLET 250 MG PO (08:14)
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
[2021-11-07 20:40] VITALS: BP 132/83; PULSE 86; RESP 18; TEMP 36.9; O2SAT 96
[2021-11-07] MEDS: Sertraline HCL 25 MG TABLET 75 MG PO (21:49)
[2021-11-07] MEDS: Lithium Carbonate 300 MG TABLET PO (21:50)
[2021-11-07] MEDS: lamoTRIgine 100 MG TABLET 200 MG PO (21:50)
--- NOTE | 2021-11-07 22:47 | PM.EVENT ---
Event Note Date of Service: 11/07/21 Event Note: Patient reportedly developed pruritic rash lithium d/c benadryl ordered stopped lamictal am dose CAW to review monitor rash watch for blistering fever
[2021-11-07] MEDS: diphenhydrAMINE HCL 25 MG TABLET PO (22:50)
--- NOTE | 2021-11-07 23:12 | PC.NURSE ---
Patient and patient's patient observer alerted this auto service writer at 2215 that patient was starting to have hives on her face and itching on her legs and arms. Dr. Lynn notified via [place] Text. Order for Benadryl 25 mg po q 6 hours was ordered. [place] was discontinued and a.m. Lamictal is being held. Patient received Benadryl 25 mg po at 2245. This auto service writer noted patient's back was beginning to look pink. No sob or wheezing noted or reported. Information passed on to third shift.
[2021-11-08 06:00] VITALS: BP 118/82; PULSE 92; RESP 18; TEMP 36.6; O2SAT 97
[2021-11-08] MEDS: Folic Acid 1 MG TABLET PO (08:29)
[2021-11-08] MEDS: Cholecalciferol (Vitamin D3) 10 MCG TABLET PO (08:29)
[2021-11-08] MEDS: lamoTRIgine 25 MG TABLET 250 MG PO (09:46)
[2021-11-08] MEDS: Lithium Carbonate 300 MG CAPSULE PO ×2 (12:02→20:44)
[2021-11-08] MEDS: Mineral Oil/Petrolatum,White 106 GM Tube 1 APPL TOPICAL (15:54)
--- NOTE | 2021-11-08 19:26 | HO.PSYCHPN ---
Subjective Subjective Date of Service: 11/08/21 Reason For Visit: Depression, SI Interim History: Pt reported rash to team last evening. Lamictal and [place] stopped. Upon further evaluation today, it appears this is a dry skin rash. Lamictal/[place] re-started, Eucerin ordered. Met with pt and Santi HARTMANN. Discussed [employer]PER[employer]ING changes and process she needs to go through to do this. Reviewed information to request transportation for daughter. Call to Shanika Carter [phone]. Shanika will call back when she has options for pt. Medication Compliance: Yes Side effects from medications: No Attending Groups: Yes Review of Systems Acute medical concerns: No Medical Review of Systems: unchanged Review of Systems Reports behavioral changes Psychiatric: Reports anxiety, Reports behavioral changes, Reports depression, Reports difficulty concentrating, Reports hopelessness, Reports irritability, Reports mood swings and Reports suicidal ideation Mental Status Exam Mental Status Exam Patient Appearance: Appropriate Patient Orientation: Person, Place, Time and Situation Level of Consciousness: Alert Patient Behavior: Talkative and Good Eye Contact Mood Description: Anxious and Apprehensive Affect Description: Anxious Patient Cognition Impaired: No Ability to Follow Directions: Good Speech Pattern: Spontaneous Speech Memory Description: Intact Hallucinations: None Delusions: Not Present Thought Process: Rumination Thought Content: positive for Intact and positive for Goal Oriented Depressive Symptoms: Increased Anxiety, Diff. Making Decisions and Increased Irritability Judgement: Good Diagnostics Vital Signs (24Hr): Vital Signs - 24 hr 11/07/21 20:40 11/08/21 06:00 Temperature 98.4 F 97.9 F Pulse Rate 86 92 Respiratory Rate 18 18 Blood Pressure 132/83 118/82 Pulse Oximetry 96 97 BMI result Body Mass Index 24.3 Labs Results: 11/03/21 10:48 11/03/21 10:47 Medications Medications Current Medications Acetaminophen (Acetaminophen 325 Mg Tablet) 650 mg PO Q6H PRN PRN Reason: Headache/Pain Mild Scale (1-3) Al Hydroxide/Mg Hydroxide (Magnesium Hydrox/Alum Hydrox 30 Ml Oral.Susp) 30 ml PO Q6H PRN PRN Reason: Heartburn/Nausea Diphenhydramine HCl (Diphenhydramine Hcl 25 Mg Tablet) 25 mg PO Q6H PRN PRN Reason: Allergic Reaction Last Admin: 11/07/21 22:50 Dose: 25 mg Documented by: Folic Acid (Folic Acid 1 Mg Tablet) 1 mg PO DAILY [facility] Last Admin: 11/08/21 08:29 Dose: 1 mg Documented by: Lamotrigine (Lamotrigine 100 Mg Tablet) 200 mg PO BEDTIME [facility] Last Admin: 11/07/21 21:50 Dose: 200 mg Documented by: Lamotrigine (Lamotrigine 25 Mg Tablet) 250 mg PO DAILY [facility] Last Admin: 11/08/21 09:46 Dose: 250 mg Documented by: [place] Carbonate ([place] Carbonate 300 Mg Capsule) 300 mg PO BID [facility] Last Admin: 11/08/21 12:02 Dose: 300 mg Documented by: Magnesium Hydroxide (Milk Of Magnesia 30 Ml Oral.Susp) 30 ml PO DAILY PRN PRN Reason: Constipation Multi-Ingred Cream/Lotion/Oil/Oint (Mineral Oil/Petrolatum,White 106 Gm Tube) 1 appl TOPICAL BID [facility]; Protocol Last Admin: 11/08/21 15:54 Dose: 1 appl Documented by: Naproxen (Naproxen 500 Mg Tablet) 500 mg PO BID PRN PRN Reason: Pain, Moderate (Pain Scale 4-6 Last Admin: 11/05/21 20:55 Dose: 500 mg Documented by: Sertraline HCl (Sertraline Hcl 25 Mg Tablet) 75 mg PO BEDTIME [facility] Last Admin: 11/07/21 21:49 Dose: 75 mg Documented by: Trazodone HCl (Trazodone Hcl 50 Mg Tablet) 50 mg PO BEDTIME PRN PRN Reason: Insomnia Vitamin D (Cholecalciferol (Vitamin D3) 10 Mcg Tablet) 10 mcg PO DAILY [facility] Last Admin: 11/08/21 08:29 Dose: 10 mcg Documented by: Allergies Allergies Allergy/AdvReac Type Severity Reaction Status Date / Time potassium AdvReac Intermediate panic Verified 10/26/21 10:01 attacks Assessment & Plan Assessment & Plan (1) Depression: Qualifiers: Depression Type: unspecified Qualified Code(s): F32.A - Depression, unspecified Status: Acute Code(s): F32.A - Depression, unspecified (2) Cannabis use disorder, mild, abuse: Status: Acute Code(s): F12.10 - Cannabis abuse, uncomplicated Plan 36 yo female, hx of TBI, CVA, Seizures, Depression, Anxiety, Mood Lability, especially when she feels that she is negatively attacked and perceives people to be attacking of her, presents with SI and situational crisis where she is feeling overwhelmed with current issues her child is having and attempting to organized treatment. Reports an increase in mood lability, anger, currently taking Lamictal, Sertraline. Recently Sertraline was decreased as pt experienced seizure activity at 200 mg. Plan: [place] 150 mg bid trial to augment Lamictal with titration as tolerated. Increase [place] to 300 mg bid Continue current regime. I spent minutes with the patient and/or on the patient floor today, greater than?50% of which was spent counseling/coordinating care. Patient educated on: medication risk/benefits Informed Consent: understands and further education needed Reason for contiued inpatient stay Substantial Risk for: rapid decompensation
[2021-11-08] MEDS: lamoTRIgine 100 MG TABLET 200 MG PO (20:42)
[2021-11-08] MEDS: Sertraline HCL 25 MG TABLET 75 MG PO (20:43)
[2021-11-08 22:45] VITALS: BP 135/91; PULSE 99; TEMP 37.1; O2SAT 99
[2021-11-09 06:00] VITALS: BP 113/57; PULSE 101; RESP 18; TEMP 36.6; O2SAT 98
[2021-11-09] MEDS: Lithium Carbonate 300 MG CAPSULE PO ×2 (08:52→20:45)
[2021-11-09] MEDS: Cholecalciferol (Vitamin D3) 10 MCG TABLET PO (08:52)
[2021-11-09] MEDS: lamoTRIgine 25 MG TABLET 250 MG PO (08:52)
[2021-11-09] MEDS: Folic Acid 1 MG TABLET PO (08:52)
--- NOTE | 2021-11-09 16:48 | HO.PSYCHPN ---
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 Reports feeling tired, overwhelmed and unable to manage this. Reports Grill is effective, without SE. Discussion of the abilities the hospital has and what she will need to delegate and continue to be responsible for. Tentative family meeting 11/11 3:45pm Medication Compliance: Yes Side effects from medications: No Attending Groups: Yes Review of Systems Acute medical concerns: No Medical Review of Systems: unchanged Review of Systems Reports behavioral changes Psychiatric: Reports anxiety, Reports behavioral changes, Reports depression, Reports difficulty concentrating, Reports hopelessness, Reports irritability, Reports mood swings and Reports suicidal ideation Mental Status Exam Mental Status Exam Patient Appearance: Appropriate Patient Orientation: Person, Place, Time and Situation Level of Consciousness: Alert Patient Behavior: Talkative and Good Eye Contact Mood Description: Anxious and Apprehensive Affect Description: Anxious Patient Cognition Impaired: No Ability to Follow Directions: Good Speech Pattern: Spontaneous Speech Memory Description: Intact Hallucinations: None Delusions: Not Present Thought Process: Rumination Thought Content: positive for Intact and positive for Goal Oriented Depressive Symptoms: Increased Anxiety, Diff. Making Decisions and Increased Irritability Judgement: Good Diagnostics Vital Signs (24Hr): Vital Signs - 24 hr 11/08/21 22:45 11/09/21 06:00 Temperature 98.7 F 97.9 F Pulse Rate 99 101 H Respiratory Rate 18 Blood Pressure 135/91 H 113/57 L Pulse Oximetry 99 98 BMI result Body Mass Index 24.3 Labs Results: 11/03/21 10:48 11/03/21 10:47 Medications Medications Current Medications Acetaminophen (Acetaminophen 325 Mg Tablet) 650 mg PO Q6H PRN PRN Reason: Headache/Pain Mild Scale (1-3) Al Hydroxide/Mg Hydroxide (Magnesium Hydrox/Alum Hydrox 30 Ml Oral.Susp) 30 ml PO Q6H PRN PRN Reason: Heartburn/Nausea Diphenhydramine HCl (Diphenhydramine Hcl 25 Mg Tablet) 25 mg PO Q6H PRN PRN Reason: Allergic Reaction Last Admin: 11/07/21 22:50 Dose: 25 mg Documented by: Folic Acid (Folic Acid 1 Mg Tablet) 1 mg PO DAILY [facility] Last Admin: 11/09/21 08:52 Dose: 1 mg Documented by: Lamotrigine (Lamotrigine 100 Mg Tablet) 200 mg PO BEDTIME [facility] Last Admin: 11/08/21 20:42 Dose: 200 mg Documented by: Lamotrigine (Lamotrigine 25 Mg Tablet) 250 mg PO DAILY [facility] Last Admin: 11/09/21 08:52 Dose: 250 mg Documented by: [place] Carbonate ([place] Carbonate 300 Mg Capsule) 300 mg PO BID [facility] Last Admin: 11/09/21 08:52 Dose: 300 mg Documented by: Magnesium Hydroxide (Milk Of Magnesia 30 Ml Oral.Susp) 30 ml PO DAILY PRN PRN Reason: Constipation Multi-Ingred Cream/Lotion/Oil/Oint (Mineral Oil/Petrolatum,White 106 Gm Tube) 1 appl TOPICAL BID [facility]; Protocol Last Admin: 11/09/21 16:07 Dose: Not Given Documented by: Naproxen (Naproxen 500 Mg Tablet) 500 mg PO BID PRN PRN Reason: Pain, Moderate (Pain Scale 4-6 Last Admin: 11/05/21 20:55 Dose: 500 mg Documented by: Sertraline HCl (Sertraline Hcl 25 Mg Tablet) 75 mg PO BEDTIME [facility] Last Admin: 11/08/21 20:43 Dose: 75 mg Documented by: Trazodone HCl (Trazodone Hcl 50 Mg Tablet) 50 mg PO BEDTIME PRN PRN Reason: Insomnia Vitamin D (Cholecalciferol (Vitamin D3) 10 Mcg Tablet) 10 mcg PO DAILY [facility] Last Admin: 11/09/21 08:52 Dose: 10 mcg Documented by: Allergies Allergies Allergy/AdvReac Type Severity Reaction Status Date / Time potassium AdvReac Intermediate panic Verified 10/26/21 10:01 attacks Assessment & Plan Assessment & Plan (1) Depression: Qualifiers: Depression Type: unspecified Qualified Code(s): F32.A - Depression, unspecified Status: Acute Code(s): F32.A - Depression, unspecified (2) Cannabis use disorder, mild, abuse: Status: Acute Code(s): F12.10 - Cannabis abuse, uncomplicated Plan 36 yo female, hx of TBI, CVA, Seizures, Depression, Anxiety, Mood Lability, especially when she feels that she is negatively attacked and perceives people to be attacking of her, presents with SI and situational crisis where she is feeling overwhelmed with current issues her child is having and attempting to organized treatment. Reports an increase in mood lability, anger, currently taking Lamictal, Sertraline. Recently Sertraline was decreased as pt experienced seizure activity at 200 mg. Plan: [place] 150 mg bid trial to augment Lamictal with titration as tolerated. Increase [place] to 300 mg bid Continue current regime. 11/09/21: Family meeting 11/11. Assist pt to re-engage in her life's activities and responsibilities. Declines voluntary DCF referral to assist daughter, herself and . Does believe daughter needs residential care. Bashir is involved. I spent minutes with the patient and/or on the patient floor today, greater than?50% of which was spent counseling/coordinating care. Patient educated on: therapeutic strategies Informed Consent: understands Reason for contiued inpatient stay Substantial Risk for: inability to function and rapid decompensation
[2021-11-09 18:00] VITALS: BP 120/83; PULSE 90; RESP 17; TEMP 37.2; O2SAT 99
[2021-11-09] MEDS: lamoTRIgine 100 MG TABLET 200 MG PO (20:45)
[2021-11-09] MEDS: Sertraline HCL 25 MG TABLET 75 MG PO (20:45)
[2021-11-09] MEDS: Mineral Oil/Petrolatum,White 106 GM Tube 1 APPL TOPICAL (21:04)
[2021-11-10 06:00] VITALS: BP 134/84; PULSE 108; RESP 18; O2SAT 98
[2021-11-10 07:00] VITALS: BMI 23.4
[2021-11-10] MEDS: lamoTRIgine 25 MG TABLET 250 MG PO (08:25)
[2021-11-10] MEDS: Folic Acid 1 MG TABLET PO (08:25)
[2021-11-10] MEDS: Cholecalciferol (Vitamin D3) 10 MCG TABLET PO (08:25)
[2021-11-10] MEDS: Lithium Carbonate 300 MG CAPSULE PO ×2 (08:25→21:18)
[2021-11-10] MEDS: Mineral Oil/Petrolatum,White 106 GM Tube 1 APPL TOPICAL ×2 (08:26→21:26)
--- NOTE | 2021-11-10 17:46 | HO.PSYCHPN ---
Subjective Subjective Date of Service: 11/10/21 Reason For Visit: Depression, SI Subjective Notes: Conditional Voluntary Healthcare Proxy: No Guardianship: No Medical Problems Affecting Mental Status: No Interim History: Message left for mother Jodie [phone] inviting her to family meeting 11/11 3:45pm. Pt was present for this call-states she has been argumentative with mother/sister today and is unsure mother will attend. 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 Medication Compliance: Yes Side effects from medications: No Attending Groups: Yes Review of Systems Acute medical concerns: No Medical Review of Systems: unchanged Review of Systems Reports behavioral changes Psychiatric: Reports anxiety, Reports behavioral changes, Reports depression, Reports difficulty concentrating, Reports hopelessness, Reports irritability, Reports mood swings and Reports suicidal ideation Mental Status Exam Mental Status Exam Patient Appearance: Appropriate Patient Orientation: Person, Place, Time and Situation Level of Consciousness: Alert Patient Behavior: Talkative and Good Eye Contact Mood Description: Anxious and Apprehensive Affect Description: Anxious Patient Cognition Impaired: No Ability to Follow Directions: Good Speech Pattern: Spontaneous Speech Memory Description: Intact Hallucinations: None Delusions: Not Present Thought Process: Rumination Thought Content: positive for Intact and positive for Goal Oriented Depressive Symptoms: Increased Anxiety, Diff. Making Decisions and Increased Irritability Judgement: Good Diagnostics Vital Signs (24Hr): Vital Signs - 24 hr 11/09/21 18:00 11/10/21 06:00 Temperature 99.0 F Pulse Rate 90 108 H Respiratory Rate 17 18 Blood Pressure 120/83 134/84 Pulse Oximetry 99 98 BMI result Body Mass Index 23.4 Labs Results: 11/03/21 10:48 11/03/21 10:47 Medications Medications Current Medications Acetaminophen (Acetaminophen 325 Mg Tablet) 650 mg PO Q6H PRN PRN Reason: Headache/Pain Mild Scale (1-3) Al Hydroxide/Mg Hydroxide (Magnesium Hydrox/Alum Hydrox 30 Ml Oral.Susp) 30 ml PO Q6H PRN PRN Reason: Heartburn/Nausea Diphenhydramine HCl (Diphenhydramine Hcl 25 Mg Tablet) 25 mg PO Q6H PRN PRN Reason: Allergic Reaction Last Admin: 11/07/21 22:50 Dose: 25 mg Documented by: Folic Acid (Folic Acid 1 Mg Tablet) 1 mg PO DAILY [facility] Last Admin: 11/10/21 08:25 Dose: 1 mg Documented by: Lamotrigine (Lamotrigine 100 Mg Tablet) 200 mg PO BEDTIME [facility] Last Admin: 11/09/21 20:45 Dose: 200 mg Documented by: Lamotrigine (Lamotrigine 25 Mg Tablet) 250 mg PO DAILY [facility] Last Admin: 11/10/21 08:25 Dose: 250 mg Documented by: [place] Carbonate ([place] Carbonate 300 Mg Capsule) 300 mg PO BID [facility] Last Admin: 11/10/21 08:25 Dose: 300 mg Documented by: Magnesium Hydroxide (Milk Of Magnesia 30 Ml Oral.Susp) 30 ml PO DAILY PRN PRN Reason: Constipation Multi-Ingred Cream/Lotion/Oil/Oint (Mineral Oil/Petrolatum,White 106 Gm Tube) 1 appl TOPICAL BID [facility]; Protocol Last Admin: 11/10/21 08:26 Dose: 1 appl Documented by: Naproxen (Naproxen 500 Mg Tablet) 500 mg PO BID PRN PRN Reason: Pain, Moderate (Pain Scale 4-6 Last Admin: 11/05/21 20:55 Dose: 500 mg Documented by: Sertraline HCl (Sertraline Hcl 25 Mg Tablet) 75 mg PO BEDTIME [facility] Last Admin: 11/09/21 20:45 Dose: 75 mg Documented by: Trazodone HCl (Trazodone Hcl 50 Mg Tablet) 50 mg PO BEDTIME PRN PRN Reason: Insomnia Vitamin D (Cholecalciferol (Vitamin D3) 10 Mcg Tablet) 10 mcg PO DAILY [facility] Last Admin: 11/10/21 08:25 Dose: 10 mcg Documented by: Allergies Allergies Allergy/AdvReac Type Severity Reaction Status Date / Time potassium AdvReac Intermediate panic Verified 10/26/21 10:01 attacks Assessment & Plan Assessment & Plan (1) Depression: Qualifiers: Depression Type: unspecified Qualified Code(s): F32.A - Depression, unspecified Status: Acute Code(s): F32.A - Depression, unspecified (2) Cannabis use disorder, mild, abuse: Status: Acute Code(s): F12.10 - Cannabis abuse, uncomplicated Plan 36 yo female, hx of TBI, CVA, Seizures, Depression, Anxiety, Mood Lability, especially when she feels that she is negatively attacked and perceives people to be attacking of her, presents with SI and situational crisis where she is feeling overwhelmed with current issues her child is having and attempting to organized treatment. Reports an increase in mood lability, anger, currently taking Lamictal, Sertraline. Recently Sertraline was decreased as pt experienced seizure activity at 200 mg. Plan: [place] 150 mg bid trial to augment Lamictal with titration as tolerated. Increase [place] to 300 mg bid Continue current regime. 11/10/21- Continue current regime. Family meeting 11/11/21. I spent minutes with the patient and/or on the patient floor today, greater than?50% of which was spent counseling/coordinating care. Patient educated on: therapeutic strategies Informed Consent: understands Reason for contiued inpatient stay Substantial Risk for: inability to function and rapid decompensation
[2021-11-10 18:00] VITALS: BP 126/88; PULSE 112; RESP 18; TEMP 36.8; O2SAT 98
[2021-11-10] MEDS: lamoTRIgine 100 MG TABLET 200 MG PO (21:00)
[2021-11-10] MEDS: Sertraline HCL 25 MG TABLET 75 MG PO (21:14)
[2021-11-11 06:00] VITALS: BP 125/83; PULSE 89; RESP 14; TEMP 36.7; O2SAT 98
[2021-11-11] MEDS: Mineral Oil/Petrolatum,White 106 GM Tube 1 APPL TOPICAL (08:24)
[2021-11-11] MEDS: Lithium Carbonate 300 MG CAPSULE PO ×2 (08:24→20:23)
[2021-11-11] MEDS: lamoTRIgine 25 MG TABLET 250 MG PO (08:24)
[2021-11-11] MEDS: Folic Acid 1 MG TABLET PO (08:24)
[2021-11-11] MEDS: Cholecalciferol (Vitamin D3) 10 MCG TABLET PO (08:24)
--- NOTE | 2021-11-11 15:06 | P.PNPSI_ITS ---
Subjective Subjective Date of Service: 11/11/21 Reason For Visit: Depression, SI Subjective Notes: Conditional Voluntary Healthcare Proxy: No Guardianship: No Medical Problems Affecting Mental Status: No Interim History: Met with pt, , mother, Santi HARTMANN. 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 Discharge planned for 11/15/21 ~4:30pm. (as needs to work that day.) Medication Compliance: Yes Side effects from medications: No Attending Groups: Yes Review of Systems Acute medical concerns: No Medical Review of Systems: unchanged Review of Systems Reports behavioral changes Psychiatric: Reports anxiety, Reports behavioral changes, Reports depression, Reports difficulty concentrating, Reports hopelessness, Reports irritability, Reports mood swings and Reports suicidal ideation Mental Status Exam Mental Status Exam Patient Appearance: Appropriate Patient Orientation: Person, Place, Time and Situation Level of Consciousness: Alert Patient Behavior: Talkative and Good Eye Contact Mood Description: Anxious and Apprehensive Affect Description: Anxious Patient Cognition Impaired: No Ability to Follow Directions: Good Speech Pattern: Spontaneous Speech Memory Description: Intact Hallucinations: None Delusions: Not Present Thought Process: Rumination Thought Content: positive for Intact and positive for Goal Oriented Depressive Symptoms: Increased Anxiety, Diff. Making Decisions and Increased Irritability Judgement: Good Diagnostics Vital Signs (24Hr): Vital Signs - 24 hr 11/10/21 18:00 11/11/21 06:00 Temperature 98.3 F 98.0 F Pulse Rate 112 H 89 Respiratory Rate 18 14 Blood Pressure 126/88 125/83 Pulse Oximetry 98 98 BMI result Body Mass Index 23.4 Labs Results: 11/03/21 10:48 11/03/21 10:47 Medications Medications Current Medications Acetaminophen (Acetaminophen 325 Mg Tablet) 650 mg PO Q6H PRN PRN Reason: Headache/Pain Mild Scale (1-3) Al Hydroxide/Mg Hydroxide (Magnesium Hydrox/Alum Hydrox 30 Ml Oral.Susp) 30 ml PO Q6H PRN PRN Reason: Heartburn/Nausea Diphenhydramine HCl (Diphenhydramine Hcl 25 Mg Tablet) 25 mg PO Q6H PRN PRN Reason: Allergic Reaction Last Admin: 11/07/21 22:50 Dose: 25 mg Documented by: Folic Acid (Folic Acid 1 Mg Tablet) 1 mg PO DAILY [facility] Last Admin: 11/11/21 08:24 Dose: 1 mg Documented by: Lamotrigine (Lamotrigine 100 Mg Tablet) 200 mg PO BEDTIME [facility] Last Admin: 11/10/21 21:00 Dose: 200 mg Documented by: Lamotrigine (Lamotrigine 25 Mg Tablet) 250 mg PO DAILY [facility] Last Admin: 11/11/21 08:24 Dose: 250 mg Documented by: [place] Carbonate ([place] Carbonate 300 Mg Capsule) 300 mg PO BID [facility] Last Admin: 11/11/21 08:24 Dose: 300 mg Documented by: Magnesium Hydroxide (Milk Of Magnesia 30 Ml Oral.Susp) 30 ml PO DAILY PRN PRN Reason: Constipation Multi-Ingred Cream/Lotion/Oil/Oint (Mineral Oil/Petrolatum,White 106 Gm Tube) 1 appl TOPICAL BID [facility]; Protocol Last Admin: 11/11/21 08:24 Dose: 1 appl Documented by: Naproxen (Naproxen 500 Mg Tablet) 500 mg PO BID PRN PRN Reason: Pain, Moderate (Pain Scale 4-6 Last Admin: 11/05/21 20:55 Dose: 500 mg Documented by: Sertraline HCl (Sertraline Hcl 25 Mg Tablet) 75 mg PO BEDTIME [facility] Last Admin: 11/10/21 21:14 Dose: 75 mg Documented by: Trazodone HCl (Trazodone Hcl 50 Mg Tablet) 50 mg PO BEDTIME PRN PRN Reason: Insomnia Vitamin D (Cholecalciferol (Vitamin D3) 10 Mcg Tablet) 10 mcg PO DAILY [facility] Last Admin: 11/11/21 08:24 Dose: 10 mcg Documented by: Allergies Allergies Allergy/AdvReac Type Severity Reaction Status Date / Time potassium AdvReac Intermediate panic Verified 10/26/21 10:01 attacks Assessment & Plan Assessment & Plan (1) Depression: Qualifiers: Depression Type: unspecified Qualified Code(s): F32.A - Depression, unspecified Status: Acute Code(s): F32.A - Depression, unspecified (2) Cannabis use disorder, mild, abuse: Status: Acute Code(s): F12.10 - Cannabis abuse, uncomplicated Plan 36 yo female, hx of TBI, CVA, Seizures, Depression, Anxiety, Mood Lability, especially when she feels that she is negatively attacked and perceives people to be attacking of her, presents with SI and situational crisis where she is feeling overwhelmed with current issues her child is having and attempting to organized treatment. Reports an increase in mood lability, anger, currently taking Lamictal, Sertraline. Recently Sertraline was decreased as pt experienced seizure activity at 200 mg. Plan: [place] 150 mg bid trial to augment Lamictal with titration as tolerated. Increase [place] to 300 mg bid Continue current regime. 11/10/21- Continue current regime. Family meeting 11/11/21. 11/11/21- Labs 11/12. Discharge 11/12/21. I spent minutes with the patient and/or on the patient floor today, gre ater than?50% of which was spent counseling/coordinating care. Patient educated on: therapeutic strategies Guardian/Caregiver educated on: therapeutic strategies Informed Consent: understands Reason for contiued inpatient stay Substantial Risk for: harm to self, inability to function and rapid decompensation
[2021-11-11 20:22] VITALS: BP 126/83; PULSE 114
[2021-11-11] MEDS: Sertraline HCL 25 MG TABLET 75 MG PO (20:23)
[2021-11-11] MEDS: lamoTRIgine 100 MG TABLET 200 MG PO (20:23)
[2021-11-12 06:00] VITALS: BP 124/78; PULSE 102; RESP 18; TEMP 37; O2SAT 98
[2021-11-12 08:39] LABS: Lithium 0.49 mmol/L (0.60-1.20)
[2021-11-12 08:44] LABS: Anion Gap 13 (12-20); Blood Urea Nitrogen 15 mg/dL (9-16); Calcium 10.1 mg/dL (8.4-10.2); Carbon Dioxide 27 mmol/L (22-29); Chloride 105 mmol/L (96-108); Creatinine Clr Calc Pharmacy 82.9; Estimated Glomerular Filt Rate > 60; Glucose Random 97 mg/dL (60-115); Potassium 4.9 mmol/L (3.3-5.1); Sodium 140 mmol/L (135-145)
[2021-11-12] MEDS: Lithium Carbonate 300 MG CAPSULE PO ×2 (08:48→21:39)
[2021-11-12] MEDS: Folic Acid 1 MG TABLET PO (08:48)
[2021-11-12] MEDS: Cholecalciferol (Vitamin D3) 10 MCG TABLET PO (08:49)
[2021-11-12 09:07] LABS: Thyroid Stimulating Hormone 1.39 uIU/mL (0.32-4.0)
--- NOTE | 2021-11-12 13:50 | P.PNPSI_ITS ---
Subjective Subjective Date of Service: 11/12/21 Reason For Visit: Depression, SI Interim History: Patient seen. Doing better. Excited about DC Sunday. She reports she feels safe. She is asking whether her medications will be sent to the pharmacy on DC. Patient denies SI/HI/AVH. 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 Discharge planned for 11/15/21 ~4:30pm. (as needs to work that day.) Review of Systems Review of Systems Constitutional : No Fever, No Chills ENT/Mouth : No Ear Pain, No Nasal Congestion, No sore throat Eyes: No Eye Pain, No Swelling, No Redness Cardiovascular : No Chest Pain, No SOB Respiratory : No Cough, No Sputum, No Dyspnea Gastrointestinal : No Nausea, No Vomiting, No Diarrhea, No Hematochezia, No Melena Genitourinary : No Dysuria, No Urinary Frequency, No Hematuria Musculoskeletal : No Myalgias Skin : No Skin Lesions, No rash Neuro : No Weakness, No Numbness, No Paresthesias, No Dizziness, No Headache Psych : positive Anxiety, positive Depression, no SI/HI Heme/Lymph: No Lymphadenopathy Endocrine : No Polyuria, No Polydipsia All other systems reviewed and are negative Reports behavioral changes Psychiatric: Reports anxiety, Reports behavioral changes, Reports depression, Reports difficulty concentrating, Reports hopelessness, Reports irritability, Reports anhedonia, Reports mood swings and Reports suicidal ideation Mental Status Exam Mental Status Exam Narrative: Patient Appearance:?Appropriate Patient Orientation:?Person, Place, Time and Situation Level of Consciousness:?Alert Patient Behavior:?Talkative and Good Eye Contact Mood Description:?Depressed and Anxious Affect Description:?Flat Patient Cognition Impaired:?No Ability to Follow Directions:?Good Speech Pattern:?Spontaneous Speech Memory Description:?Intact Hallucinations:?None Delusions:?Not Present Thought Process:?Goal directed Thought Content:?positive for [place], positive for Circumstantial, positive for Perseveration Judgment:?Fair Patient Appearance: Appropriate Patient Orientation: Person, Place, Time and Situation Level of Consciousness: Alert Patient Behavior: Talkative and Good Eye Contact Mood Description: Anxious Affect Description: Anxious Patient Cognition Impaired: No Ability to Follow Directions: Good Speech Pattern: Spontaneous Speech Memory Description: Intact Diagnostics Vital Signs (24Hr): Vital Signs - 24 hr 11/11/21 20:22 11/12/21 06:00 Temperature 98.6 F Pulse Rate 114 H 102 H Respiratory Rate 18 Blood Pressure 126/83 124/78 Pulse Oximetry 98 BMI result Body Mass Index 23.4 Labs Results: 11/03/21 10:48 11/12/21 07:29 Labs: Laboratory Results - last 48 hr 11/12/21 11/12/21 11/12/21 07:29 07:29 07:29 Sodium 140 Potassium 4.9 Chloride 105 Carbon Dioxide 27 Anion Gap 13 BUN 15 Creatinine 0.99 Estim Creat Clear Calc 82.9 Estimated GFR > 60 Random Glucose 97 Calcium 10.1 TSH 1.39 [place] 0.49 L Medications Medications Current Medications Acetaminophen (Acetaminophen 325 Mg Tablet) 650 mg PO Q6H PRN PRN Reason: Headache/Pain Mild Scale (1-3) Al Hydroxide/Mg Hydroxide (Magnesium Hydrox/Alum Hydrox 30 Ml Oral.Susp) 30 ml PO Q6H PRN PRN Reason: Heartburn/Nausea Diphenhydramine HCl (Diphenhydramine Hcl 25 Mg Tablet) 25 mg PO Q6H PRN PRN Reason: Allergic Reaction Last Admin: 11/07/21 22:50 Dose: 25 mg Documented by: Folic Acid (Folic Acid 1 Mg Tablet) 1 mg PO DAILY [facility] Last Admin: 11/12/21 08:48 Dose: 1 mg Documented by: Lamotrigine (Lamotrigine 100 Mg Tablet) 200 mg PO BEDTIME [facility] Last Admin: 11/11/21 20:23 Dose: 200 mg Documented by: Lamotrigine 200 mg/ (Lamotrigine 50 mg) 250 mg PO DAILY [facility] Last Admin: 11/12/21 08:48 Dose: 250 mg Documented by: [place] Carbonate ([place] Carbonate 300 Mg Capsule) 300 mg PO BID [facility] Last Admin: 11/12/21 08:48 Dose: 300 mg Documented by: Magnesium Hydroxide (Milk Of Magnesia 30 Ml Oral.Susp) 30 ml PO DAILY PRN PRN Reason: Constipation Multi-Ingred Cream/Lotion/Oil/Oint (Mineral Oil/Petrolatum,White 106 Gm Tube) 1 appl TOPICAL BID [facility]; Protocol Last Admin: 11/12/21 11:16 Dose: Not Given Documented by: Naproxen (Naproxen 500 Mg Tablet) 500 mg PO BID PRN PRN Reason: Pain, Moderate (Pain Scale 4-6 Last Admin: 11/05/21 20:55 Dose: 500 mg Documented by: Sertraline HCl (Sertraline Hcl 25 Mg Tablet) 75 mg PO BEDTIME [facility] Last Admin: 11/11/21 20:23 Dose: 75 mg Documented by: Trazodone HCl (Trazodone Hcl 50 Mg Tablet) 50 mg PO BEDTIME PRN PRN Reason: Insomnia Vitamin D (Cholecalciferol (Vitamin D3) 10 Mcg Tablet) 10 mcg PO DAILY [facility] Last Admin: 11/12/21 08:49 Dose: 10 mcg Documented by: Allergies Allergies Allergy/AdvReac Type Severity Reaction Status Date / Time potassium AdvReac Intermediate panic Verified 10/26/21 10:01 attacks Assessment & Plan Assessment & Plan (1) Depression: Qualifiers: Depression Type: unspecified Qualified Code(s): F32.A - Depression, unspecified Status: Acute Code(s): F32.A - Depression, unspecified (2) Cannabis use disorder, mild, abuse: Status: Acute Code(s): F12.10 - Cannabis abuse, uncomplicated Plan 36 yo female, hx of TBI, CVA, Seizures, Depression, Anxiety, Mood Lability, especially when she feels that she is negatively attacked and perceives people to be attacking of her, presents with SI and situational crisis where she is feeling overwhelmed with current issues her child is having and attempting to organized treatment. Reports an increase in mood lability, anger, currently taking Lamictal, Sertraline. Recently Sertraline was decreased as pt experienced seizure activity at 200 mg. Plan: [place] 150 mg bid trial to augment Lamictal with titration as tolerated. Increase [place] to 300 mg bid Continue current regime. 11/10/21- Continue current regime. Family meeting 11/11/21. 11/11/21- Labs 11/12. 11/12: Labs WNL. Li level 0.49. Stable and DC Sunday. I spent minutes with the patient and/or on the patient floor today, greater than?50% of which was spent counseling/coordinating care. Reason for contiued inpatient stay Substantial Risk for: inability to function and rapid decompensation
[2021-11-12 18:00] VITALS: BP 121/83; PULSE 91; TEMP 37
[2021-11-12] MEDS: lamoTRIgine 100 MG TABLET 200 MG PO (21:39)
[2021-11-12] MEDS: Sertraline HCL 25 MG TABLET 75 MG PO (21:39)
[2021-11-13 06:00] VITALS: BP 128/84; PULSE 97; RESP 18; TEMP 36.8; O2SAT 98
[2021-11-13] MEDS: Cholecalciferol (Vitamin D3) 10 MCG TABLET PO (09:30)
[2021-11-13] MEDS: Folic Acid 1 MG TABLET PO (09:30)
[2021-11-13] MEDS: Lithium Carbonate 300 MG CAPSULE PO ×2 (09:30→20:16)
[2021-11-13] MEDS: Mineral Oil/Petrolatum,White 106 GM Tube 1 APPL TOPICAL ×2 (09:49→22:08)
--- NOTE | 2021-11-13 12:15 | P.PNPSI_ITS ---
Subjective Subjective Date of Service: 11/13/21 Reason For Visit: Depression, SI Interim History: Patient seen. Doing well. Had some anxiety. Decided not to drink caffeine. Still excited about DC Sunday. She reports she feels safe. She is asking whether her medications will be sent to the pharmacy on DC. Patient denies SI/HI/AVH. 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 Discharge planned for 11/15/21 ~4:30pm. (as needs to work that day.) Review of Systems Review of Systems Constitutional : No Fever, No Chills ENT/Mouth : No Ear Pain, No Nasal Congestion, No sore throat Eyes: No Eye Pain, No Swelling, No Redness Cardiovascular : No Chest Pain, No SOB Respiratory : No Cough, No Sputum, No Dyspnea Gastrointestinal : No Nausea, No Vomiting, No Diarrhea, No Hematochezia, No Melena Genitourinary : No Dysuria, No Urinary Frequency, No Hematuria Musculoskeletal : No Myalgias Skin : No Skin Lesions, No rash Neuro : No Weakness, No Numbness, No Paresthesias, No Dizziness, No Headache Psych : positive Anxiety, positive Depression, no SI/HI Heme/Lymph: No Lymphadenopathy Endocrine : No Polyuria, No Polydipsia All other systems reviewed and are negative Reports behavioral changes Psychiatric: Reports anxiety, Reports behavioral changes, Reports depression, Reports difficulty concentrating, Reports hopelessness, Reports irritability, Reports anhedonia, Reports mood swings and Reports suicidal ideation Mental Status Exam Mental Status Exam Narrative: Patient Appearance:?Appropriate Patient Orientation:?Person, Place, Time and Situation Level of Consciousness:?Alert Patient Behavior:?Talkative and Good Eye Contact Mood Description:?Depressed and Anxious Affect Description:?Flat Patient Cognition Impaired:?No Ability to Follow Directions:?Good Speech Pattern:?Spontaneous Speech Memory Description:?Intact Hallucinations:?None Delusions:?Not Present Thought Process:?Goal directed Thought Content:?positive for [place], positive for Circumstantial, positive for Perseveration Judgment:?Fair Patient Appearance: Appropriate Patient Orientation: Person, Place, Time and Situation Level of Consciousness: Alert Patient Behavior: Talkative and Good Eye Contact Mood Description: Anxious Affect Description: Anxious Patient Cognition Impaired: No Ability to Follow Directions: Good Speech Pattern: Spontaneous Speech Memory Description: Intact Diagnostics Vital Signs (24Hr): Vital Signs - 24 hr 11/12/21 18:00 11/13/21 06:00 Temperature 98.6 F 98.2 F Pulse Rate 91 97 Respiratory Rate 18 Blood Pressure 121/83 128/84 Pulse Oximetry 98 BMI result Body Mass Index 23.4 Labs Results: 11/03/21 10:48 11/12/21 07:29 Labs: Laboratory Results - last 48 hr 11/12/21 11/12/21 11/12/21 07:29 07:29 07:29 Sodium 140 Potassium 4.9 Chloride 105 Carbon Dioxide 27 Anion Gap 13 BUN 15 Creatinine 0.99 Estim Creat Clear Calc 82.9 Estimated GFR > 60 Random Glucose 97 Calcium 10.1 TSH 1.39 [place] 0.49 L Medications Medications Current Medications Acetaminophen (Acetaminophen 325 Mg Tablet) 650 mg PO Q6H PRN PRN Reason: Headache/Pain Mild Scale (1-3) Al Hydroxide/Mg Hydroxide (Magnesium Hydrox/Alum Hydrox 30 Ml Oral.Susp) 30 ml PO Q6H PRN PRN Reason: Heartburn/Nausea Diphenhydramine HCl (Diphenhydramine Hcl 25 Mg Tablet) 25 mg PO Q6H PRN PRN Reason: Allergic Reaction Last Admin: 11/07/21 22:50 Dose: 25 mg Documented by: Folic Acid (Folic Acid 1 Mg Tablet) 1 mg PO DAILY [facility] Last Admin: 11/13/21 09:30 Dose: 1 mg Documented by: Lamotrigine (Lamotrigine 100 Mg Tablet) 200 mg PO BEDTIME [facility] Last Admin: 11/12/21 21:39 Dose: 200 mg Documented by: Lamotrigine 200 mg/ (Lamotrigine 50 mg) 250 mg PO DAILY [facility] Last Admin: 11/13/21 09:31 Dose: 250 mg Documented by: [place] Carbonate ([place] Carbonate 300 Mg Capsule) 300 mg PO BID [facility] Last Admin: 11/13/21 09:30 Dose: 300 mg Documented by: Magnesium Hydroxide (Milk Of Magnesia 30 Ml Oral.Susp) 30 ml PO DAILY PRN PRN Reason: Constipation Multi-Ingred Cream/Lotion/Oil/Oint (Mineral Oil/Petrolatum,White 106 Gm Tube) 1 appl TOPICAL BID [facility]; Protocol Last Admin: 11/13/21 09:49 Dose: 1 appl Documented by: Naproxen (Naproxen 500 Mg Tablet) 500 mg PO BID PRN PRN Reason: Pain, Moderate (Pain Scale 4-6 Last Admin: 11/05/21 20:55 Dose: 500 mg Documented by: Sertraline HCl (Sertraline Hcl 25 Mg Tablet) 75 mg PO BEDTIME [facility] Last Admin: 11/12/21 21:39 Dose: 75 mg Documented by: Trazodone HCl (Trazodone Hcl 50 Mg Tablet) 50 mg PO BEDTIME PRN PRN Reason: Insomnia Vitamin D (Cholecalciferol (Vitamin D3) 10 Mcg Tablet) 10 mcg PO DAILY [facility] Last Admin: 11/13/21 09:30 Dose: 10 mcg Documented by: Allergies Allergies Allergy/AdvReac Type Severity Reaction Status Date / Time potassium AdvReac Intermediate panic Verified 10/26/21 10:01 attacks Assessment & Plan Assessment & Plan (1) Depression: Qualifiers: Depression Type: unspecified Qualified Code(s): F32.A - Depression, unspecified Status: Acute Code(s): F32.A - Depression, unspecified (2) Cannabis use disorder, mild, abuse: Status: Acute Code(s): F12.10 - Cannabis abuse, uncomplicated Plan 36 yo female, hx of TBI, CVA, Seizures, Depression, Anxiety, Mood Lability, especially when she feels that she is negatively attacked and perceives people to be attacking of her, presents with SI and situational crisis where she is feeling overwhelmed with current issues her child is having and attempting to organized treatment. Reports an increase in mood lability, anger, currently taking Lamictal, Sertraline. Recently Sertraline was decreased as pt experienced seizure activity at 200 mg. Plan: [place] 150 mg bid trial to augment Lamictal with titration as tolerated. Increase [place] to 300 mg bid Continue current regime. 11/10/21- Continue current regime. Family meeting 11/11/21. 11/11/21- Labs 11/12. 11/12: Labs WNL. Li level 0.49. Stable and DC Sunday. 11/13:Stable and DC Sunday. I spent minutes with the patient and/or on the patient floor today, greater than?50% of which was spent counseling/coordinating care. Reason for contiued inpatient stay Substantial Risk for: harm to self and inability to function
[2021-11-13 16:13] VITALS: BP 142/85; PULSE 100; RESP 16; TEMP 36.9; O2SAT 98
[2021-11-13] MEDS: lamoTRIgine 100 MG TABLET 200 MG PO (20:16)
[2021-11-13] MEDS: Sertraline HCL 25 MG TABLET 75 MG PO (20:16)
[2021-11-14 06:00] VITALS: BP 126/83; PULSE 97; RESP 18; TEMP 36.7; O2SAT 98
[2021-11-14] MEDS: Cholecalciferol (Vitamin D3) 10 MCG TABLET PO (09:10)
[2021-11-14] MEDS: Lithium Carbonate 300 MG CAPSULE PO ×2 (09:10→20:29)
[2021-11-14] MEDS: Folic Acid 1 MG TABLET PO (09:16)
--- NOTE | 2021-11-14 14:28 | P.PNPSI_ITS ---
Subjective Subjective Date of Service: 11/14/21 Reason For Visit: Depression, SI Interim History: Patient seen. She had gotten off the phone with her and was feeling depressed and was tearful. It's all going to be the same again when I go home. It's all going to be on me. She reports her told her that he feels it will be a burden on him if he does appointments. She feels he isn't helpful. She was discouraged. Up until the phone call, her day was going well. Discussed having case management. Patient denies SI/HI/AVH. Discharge planned for 11/15/21 ~4:30pm. (as needs to work that day.) Review of Systems Review of Systems Constitutional : No Fever, No Chills ENT/Mouth : No Ear Pain, No Nasal Congestion, No sore throat Eyes: No Eye Pain, No Swelling, No Redness Cardiovascular : No Chest Pain, No SOB Respiratory : No Cough, No Sputum, No Dyspnea Gastrointestinal : No Nausea, No Vomiting, No Diarrhea, No Hematochezia, No Melena Genitourinary : No Dysuria, No Urinary Frequency, No Hematuria Musculoskeletal : No Myalgias Skin : No Skin Lesions, No rash Neuro : No Weakness, No Numbness, No Paresthesias, No Dizziness, No Headache Psych : positive Anxiety, positive Depression, no SI/HI Heme/Lymph: No Lymphadenopathy Endocrine : No Polyuria, No Polydipsia All other systems reviewed and are negative Reports behavioral changes Psychiatric: Reports anxiety, Reports behavioral changes, Reports depression, Reports difficulty concentrating, Reports hopelessness, Reports irritability, Reports anhedonia, Reports mood swings and Reports suicidal ideation Mental Status Exam Mental Status Exam Narrative: Patient Appearance:?Appropriate Patient Orientation:?Person, Place, Time and Situation Level of Consciousness:?Alert Patient Behavior:?Talkative and Good Eye Contact Mood Description:?Depressed and Anxious Affect Description:?tearful and labile after an unpleasant PC with Patient Cognition Impaired:?No Ability to Follow Directions:?Good Speech Pattern:?Spontaneous Speech Memory Description:?Intact Hallucinations:?None Delusions:?Not Present Thought Process:?Goal directed Thought Content:?positive for [place], positive for Circumstantial, positive for Perseveration Judgment:?Fair Patient Appearance: Appropriate Patient Orientation: Person, Place, Time and Situation Level of Consciousness: Alert Patient Behavior: Talkative and Good Eye Contact Mood Description: Anxious Affect Description: Anxious Patient Cognition Impaired: No Ability to Follow Directions: Good Speech Pattern: Spontaneous Speech Memory Description: Intact Diagnostics Vital Signs (24Hr): Vital Signs - 24 hr 11/13/21 16:13 11/14/21 06:00 Temperature 98.4 F 98.0 F Pulse Rate 100 97 Respiratory Rate 16 18 Blood Pressure 142/85 H 126/83 Pulse Oximetry 98 98 BMI result Body Mass Index 23.4 Labs Results: 11/03/21 10:48 11/12/21 07:29 Medications Medications Current Medications Acetaminophen (Acetaminophen 325 Mg Tablet) 650 mg PO Q6H PRN PRN Reason: Headache/Pain Mild Scale (1-3) Al Hydroxide/Mg Hydroxide (Magnesium Hydrox/Alum Hydrox 30 Ml Oral.Susp) 30 ml PO Q6H PRN PRN Reason: Heartburn/Nausea Diphenhydramine HCl (Diphenhydramine Hcl 25 Mg Tablet) 25 mg PO Q6H PRN PRN Reason: Allergic Reaction Last Admin: 11/07/21 22:50 Dose: 25 mg Documented by: Folic Acid (Folic Acid 1 Mg Tablet) 1 mg PO DAILY [facility] Last Admin: 11/14/21 09:16 Dose: 1 mg Documented by: Lamotrigine (Lamotrigine 100 Mg Tablet) 200 mg PO BEDTIME [facility] Last Admin: 11/13/21 20:16 Dose: 200 mg Documented by: Lamotrigine 200 mg/ (Lamotrigine 50 mg) 250 mg PO DAILY [facility] Last Admin: 11/14/21 09:10 Dose: 250 mg Documented by: [place]child Carbonate ([place]child Carbonate 300 Mg Capsule) 300 mg PO BID [facility] Last Admin: 11/14/21 09:10 Dose: 300 mg Documented by: Magnesium Hydroxide (Milk Of Magnesia 30 Ml Oral.Susp) 30 ml PO DAILY PRN PRN Reason: Constipation Multi-Ingred Cream/Lotion/Oil/Oint (Mineral Oil/Petrolatum,White 106 Gm Tube) 1 appl TOPICAL BID [facility]; Protocol Last Admin: 11/14/21 09:17 Dose: Not Given Documented by: Naproxen (Naproxen 500 Mg Tablet) 500 mg PO BID PRN PRN Reason: Pain, Moderate (Pain Scale 4-6 Last Admin: 11/05/21 20:55 Dose: 500 mg Documented by: Sertraline HCl (Sertraline Hcl 25 Mg Tablet) 75 mg PO BEDTIME [facility] Last Admin: 11/13/21 20:16 Dose: 75 mg Documented by: Trazodone HCl (Trazodone Hcl 50 Mg Tablet) 50 mg PO BEDTIME PRN PRN Reason: Insomnia Vitamin D (Cholecalciferol (Vitamin D3) 10 Mcg Tablet) 10 mcg PO DAILY [facility] Last Admin: 11/14/21 09:10 Dose: 10 mcg Documented by: Allergies Allergies Allergy/AdvReac Type Severity Reaction Status Date / Time potassium AdvReac Intermediate panic Verified 10/26/21 10:01 attacks Assessment & Plan Assessment & Plan (1) Depression: Qualifiers: Depression Type: unspecified Qualified Code(s): F32.A - Depression, unspecified Status: Acute Code(s): F32.A - Depression, unspecified (2) Cannabis use disorder, mild, abuse: Status: Acute Code(s): F12.10 - Cannabis abuse, uncomplicated Plan 36 yo female, hx of TBI, CVA, Seizures, Depression, Anxiety, Mood Lability, especially when she feels that she is negatively attacked and perceives people to be attacking of her, presents with SI and situational crisis where she is feeling overwhelmed with current issues her child is having and attempting to organized treatment. Reports an increase in mood lability, anger, currently taking Lamictal, Sertraline. Recently Sertraline was decreased as pt experienced seizure activity at 200 mg. Plan: Fairchild 150 mg bid trial to augment Lamictal with titration as tolerated. Increase [place]child to 300 mg bid Continue current regime. 11/10/21- Continue current regime. Family meeting 11/11/21. 11/11/21- Labs 11/12. 11/12: Labs WNL. Li level 0.49. Stable and DC Sunday. 11/13:Stable and DC Sunday. 11/14 Continue treatment plan. I spent minutes with the patient and/or on the patient floor today, greater than?50% of which was spent counseling/coordinating care. Reason for contiued inpatient stay Substantial Risk for: harm to self and inability to function
[2021-11-14 15:40] VITALS: BP 126/78; PULSE 83; TEMP 36.6; O2SAT 99
[2021-11-14] MEDS: lamoTRIgine 100 MG TABLET 200 MG PO (20:29)
[2021-11-14] MEDS: Sertraline HCL 25 MG TABLET 75 MG PO (20:29)
[2021-11-15 06:25] VITALS: BP 127/77; PULSE 77; RESP 16; TEMP 36.6; O2SAT 98
[2021-11-15] MEDS: Cholecalciferol (Vitamin D3) 10 MCG TABLET PO (09:22)
[2021-11-15] MEDS: Folic Acid 1 MG TABLET PO (09:22)
[2021-11-15] MEDS: Lithium Carbonate 300 MG CAPSULE PO (09:22)
--- NOTE | 2021-11-15 17:22 | P.DS_ITS ---
DS: Providers Provider Date of Service: 11/15/21 Date of admission: 11/03/21 18:57 Date of discharge: 11/15/21 Primary care physician: Clara Qiu MD Admitting clinician: Kate Bob Attending physician on admission: Kate Bob Attending physician on discharge: Kate Bob Discharging clinician: Kate Bob DS: Diagnosis Discharge Diagnosis (1) Depression: Status: Acute (2) Cannabis use disorder, mild, abuse: Status: Acute DS: Medications Discharge Medications Home Medications: Previous Rx's Medication Instructions Recorded naproxen 500 mg tablet 500 mg PO BID PRN 7 Days #14 tab 10/26/21 cholecalciferol (vitamin D3) 10 10 mcg PO DAILY #30 tab 11/15/21 mcg (400 unit) tablet (Vitamin D3) folic acid 1 mg tablet 1 mg PO DAILY #30 tab 11/15/21 lamotrigine 100 mg tablet 200 mg PO BEDTIME #60 tab 11/15/21 lamotrigine 100 mg tablet 250 mg PO DAILY #90 tab 11/15/21 lithium carbonate 300 mg capsule 300 mg PO BID #60 cap 11/15/21 sertraline 100 mg tablet 1 tab PO BEDTIME #30 tab 11/15/21 white petrolatum-mineral oil 1 appl TOPICAL BID #454 g 11/15/21 topical cream (Dermacerin) Mental Status Exam Mental Status Exam Narrative: Well-developed, well-nourished female, in NAD. Patient Appearance: Appropriate Patient Orientation: Person, Place, Time and Situation Level of Consciousness: Appropriate and Alert Patient Behavior: Appropriate, Talkative and Good Eye Contact Mood Description: Appropriate and Anxious Affect Description: Anxious Patient Cognition Impaired: No Ability to Follow Directions: Good Speech Pattern: Clear, Appropriate and Coherent Memory Description: Intact Hallucinations: None Delusions: Not Present Thought Process: Intact Thought Content: positive for [place] Depressive Symptoms: Increased Anxiety, Unexplained Headaches and Difficulty Concentrating Judgement: Fair Data Data Completed and Pending Completed studies during hospitalization [Text1]: 11/12/21 11/12/21 11/12/21 07:29 07:29 07:29 Sodium 140 Potassium 4.9 Chloride 105 Carbon Dioxide 27 Anion Gap 13 BUN 15 Creatinine 0.99 Estim Creat Clear Calc 82.9 Estimated GFR > 60 Random Glucose 97 Calcium 10.1 TSH 1.39 [place] 0.49 L DS: Summary Hospital Course Hospital Course: Admission to adult psychiatry to address symptoms of recurrent major depression and psychosocial stressors. [place] was added to regime of Lamictal/Sertraline. Sertraline dosing decreased. Pt responded to family meeting and resource identification for assistance with her care due to history of traumatic brain injury. She was able to address her concerns with her certified personal trainer arrangement with her family and was able to create an updated plan of care which she believes will foster an increase in her independence. Time spent discussing smoking cessation with patient: 3 to 10 minutes Status at Discharge Functional status at discharge: wheelchair bound Overall status at discharge: patient is progressing back to baseline Time Spent with Patient Time attestation: Total time spent providing and/or coordinating discharge services:45 Time spent: Greater than 30 minutes Discharge Plan Discharge Patient Disposition: Home, Self-Care Discharge Diagnosis: Recurrent Major Depression, Severe Cannabis Use Disorder History of Traumatic Brain Injury with resulting seizures Referrals: [facility] PHP [Other] - Tomorrow (Partial Hospitalization Referral [facility] will follow up with patient after discharge ) [facility] [Other] - Tomorrow (Patient should follow-up with [facility] outpatient therapy and psychiatry appointments following discharge. Please check your email for [facility] [Other] - Tomorrow (Information regarding [facility]) Clara Qiu MD [Primary Care Provider] - 12/09/21 11:30 am (IN OFFICE) Discharge Medications: New lithium carbonate 300 mg Capsule 300 mg PO BID Qty: 60 0RF Dermacerin Cream 1 appl topical BID Qty: 454 0RF Protocol: Apply to: Apply to: affected areas cholecalciferol (vitamin D3) [Vitamin D3] 10 mcg (400 unit) Tablet 10 mcg PO DAILY Qty: 30 0RF Eucerin Original Lotion 1 appl topical TID PRN (Reason: dry skin) Qty: 500 0RF Continued sertraline 100 mg tablet 1 tab PO BEDTIME Qty: 30 0RF lamotrigine 100 mg tablet 250 mg PO DAILY Qty: 90 0RF lamotrigine 100 mg tablet 200 mg PO BEDTIME Qty: 60 0RF naproxen 500 mg tablet 500 mg PO BID PRN (Reason: pain) 7 Days Qty: 14 0RF No Action cholecalciferol (vitamin D3) [Vitamin D3] 25 mcg (1,000 unit) capsule 25 mcg PO DAILY 30 Days Qty: 30 5RF folic acid 1 mg tablet 1 mg PO DAILY 90 Days Qty: 90 3RF Discharge Orders: Discharge Order (Routine); Ordered 11/15/21 Ordered By: Kate Bbo Diet: advance to usual diet Activity on Discharge: As tolerated Stand Alone Forms: Patient Portal Discharge page, Community Support Care Plan Goals: Mood Stabilization Health Concerns: Recurrent Major Depression Plan of Treatment: Follow up with scheduled appointments Take medications as directed If interested you may call the [facility] Head Injury Program (SHIP) through [facility] at [phone] or [phone]. You may also access [facility] through [facility] Assessment: Alert, oriented, no symptoms of psychosis, non-suicidal, non-homicidal, mood is stable. Pt asking appropriate questions and discussed return of Sertraline to 100 mg daily which is implemented. Patient Instructions: [place] (By mouth), Sertraline (By mouth) Discharge Date/Time: 11/15/21 16:49
== END 2021-11-15 16:49 | disposition home or self-care (01) | DRG 885 ==
LOC: HO.ED 14:38 → HO.PM5 19:07
PROVIDERS: Admitting Provider Registered Nurse; Emergency Provider Emergency Medicine; PCP Internal Medicine; Visit Provider Clinical Nurse Specialist Psychiatric/Mental Health, Adult
DX: F33.2 Major depressive disorder, recurrent severe without psychotic features (principal); R45.851 Suicidal ideations; L27.0 Generalized skin eruption due to drugs and medicaments taken internally; T43.595A Adverse effect of other antipsychotics and neuroleptics, initial encounter; F12.10 Cannabis abuse, uncomplicated; Z20.822 Contact with and (suspected) exposure to COVID-19; Z87.820 Personal history of traumatic brain injury; Z98.51 Tubal ligation status; Z79.899 Other long term (current) drug therapy
CPT/HCPCS: 36415; 80048; 80061; 80076; 80178; 80307; 81025; 82607; 82746; 83036; 83735; 84439; 84443; 85025; 87635; 97162; 99285; Q0163

== ENCOUNTER 2021-12-06 10:00 | Outpatient (RCR) | payer OTHER, SELFPAY ==
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
--- NOTE | 2021-12-02 07:56 | PC.NURSE ---
case opened in treatment team
--- NOTE | 2021-12-05 15:01 | PC.NURSE ---
Spoke with patient today re: history of seizure activity. Per patient report las seizure was about a a year and half ago Patient lives with her sister and 13 yr old daughter. Reviewed seizure precautions with patient who states understanding. Teaching to have family call 911 with seizure activity. Patient reports she is compliant with Lamictal which she takes two times daily (250mg in am and 200mg at bedtime)
--- NOTE | 2021-12-06 14:29 | PC.NURSE ---
Per patient request discharged today, 12/06/2021. Patient states she is ready for discharge, denies SI without plan or intent. Denies HI. Notification to out patient providers of discharge. Out patient providers faxed discharge medication list.
--- NOTE | 2021-12-06 15:56 | PC.NURSE ---
The client requested to be discharger . She explains that she is not finding groups helpful. She has outpatient providers.
== END 2021-12-06 23:59 | disposition home or self-care (01) ==
LOC: HO.PHPA 10:00
PROVIDERS: Visit Provider Psychiatry & Neurology Psychiatry
DX: F33.2 Major depressive disorder, recurrent severe without psychotic features (principal); F12.10 Cannabis abuse, uncomplicated; Z79.899 Other long term (current) drug therapy; Z86.73 Personal history of transient ischemic attack (TIA), and cerebral infarction without residual deficits
CPT/HCPCS: 90791; 90853

== ENCOUNTER 2021-12-09 12:03 | Outpatient (REF) | payer OTHER, SELFPAY ==
[2021-12-09 14:41] LABS: Lithium 0.78 mmol/L (0.60-1.20)
== END 2021-12-09 12:04 | disposition home or self-care (01) ==
LOC: HO.HMGCLDS 12:03
PROVIDERS: Visit Provider Internal Medicine
DX: F33.2 Major depressive disorder, recurrent severe without psychotic features (principal); Z79.899 Other long term (current) drug therapy
CPT/HCPCS: 36415; 80178

== ENCOUNTER 2021-12-20 11:34 | Outpatient (REF) | payer OTHER, SELFPAY ==
[2021-12-20 13:51] LABS: Alanine Aminotransferase 15 U/L (0-31); Albumin Level 4.3 g/dL (3.5-5.0); Alkaline Phosphatase 73 U/L (39-117); Anion Gap 12 (12-20); Aspartate Amino Transferase 13 U/L (5-31); Bilirubin Total 0.3 mg/dL (0.0-1.0); Blood Urea Nitrogen 8 mg/dL (9-16); Calcium 10.1 mg/dL (8.4-10.2); Carbon Dioxide 25 mmol/L (22-29); Chloride 105 mmol/L (96-108); Estimated Glomerular Filt Rate > 60; Glucose Random 107 mg/dL (60-115); Potassium 4.5 mmol/L (3.3-5.1); Sodium 137 mmol/L (135-145); Total Protein 7.8 g/dL (6.5-8.0)
[2021-12-20 14:01] LABS: Lithium 0.37 mmol/L (0.60-1.20)
[2021-12-20 14:11] LABS: Thyroid Stimulating Hormone 2.18 uIU/mL (0.32-4.0)
== END 2021-12-20 11:35 | disposition home or self-care (01) ==
LOC: HO.LABR 11:34
PROVIDERS: PCP Internal Medicine; Visit Provider Registered Nurse
DX: Z79.899 Other long term (current) drug therapy (principal)
CPT/HCPCS: 36415; 80053; 80178; 84443

== ENCOUNTER 2022-02-27 11:36 | Outpatient (REF) | payer OTHER, SELFPAY ==
[2022-02-27 12:37] LABS: Lithium 0.52 mmol/L (0.60-1.20)
[2022-02-27 12:50] LABS: Alanine Aminotransferase 14 U/L (0-31); Albumin Level 4.5 g/dL (3.5-5.0); Alkaline Phosphatase 70 U/L (39-117); Anion Gap 14 (12-20); Aspartate Amino Transferase 11 U/L (5-31); Bilirubin Total 0.4 mg/dL (0.0-1.0); Blood Urea Nitrogen 6 mg/dL (9-16); Calcium 10.2 mg/dL (8.4-10.2); Carbon Dioxide 25 mmol/L (22-29); Chloride 103 mmol/L (96-108); Estimated Glomerular Filt Rate > 60; Glucose Random 92 mg/dL (60-115); Sodium 138 mmol/L (135-145); Total Protein 8.3 g/dL (6.5-8.0)
== END 2022-02-27 11:37 | disposition home or self-care (01) ==
LOC: HO.LABR 11:36
PROVIDERS: PCP Internal Medicine; Visit Provider Registered Nurse
DX: Z79.899 Other long term (current) drug therapy (principal)
CPT/HCPCS: 36415; 80053; 80178; 84443

== ENCOUNTER 2022-03-31 12:59 | Outpatient (REF) | payer OTHER, SELFPAY ==
[2022-03-31 13:55] LABS: Lithium 0.48 mmol/L (0.60-1.20)
== END 2022-03-31 13:00 | disposition home or self-care (01) ==
LOC: HO.LABR 12:59
PROVIDERS: PCP Internal Medicine; Visit Provider Registered Nurse
DX: Z79.899 Other long term (current) drug therapy (principal)
CPT/HCPCS: 36415; 80178

== ENCOUNTER 2022-05-23 12:28 | Outpatient (REF) | payer OTHER, SELFPAY ==
[2022-05-23 14:22] LABS: Lithium 0.63 mmol/L (0.60-1.20)
[2022-05-23 14:44] LABS: Alanine Aminotransferase 15 U/L (0-31); Albumin Level 4.6 g/dL (3.5-5.0); Alkaline Phosphatase 68 U/L (39-117); Anion Gap 10 (12-20); Aspartate Amino Transferase 11 U/L (5-31); Bilirubin Total 0.3 mg/dL (0.0-1.0); Blood Urea Nitrogen 9 mg/dL (9-16); Calcium 10.2 mg/dL (8.4-10.2); Carbon Dioxide 30 mmol/L (22-29); Chloride 107 mmol/L (96-108); Estimated Glomerular Filt Rate > 60; Glucose Random 89 mg/dL (60-115); Potassium 4.9 mmol/L (3.3-5.1); Sodium 142 mmol/L (135-145); Total Protein 8.2 g/dL (6.5-8.0)
== END 2022-05-23 12:29 | disposition home or self-care (01) ==
LOC: HO.LAB 12:28
PROVIDERS: Visit Provider Registered Nurse
DX: F33.2 Major depressive disorder, recurrent severe without psychotic features (principal); Z79.899 Other long term (current) drug therapy
CPT/HCPCS: 36415; 80053; 80178; 84443

== ENCOUNTER 2022-08-14 11:38 | Outpatient (REF) | payer OTHER, SELFPAY ==
[2022-08-17 07:14] LABS: Lamotrigine Lamictal 9.2 mcg/mL (4.0-18.0)
== END 2022-08-14 11:39 | disposition home or self-care (01) ==
LOC: HO.HMGCLDS 11:38
PROVIDERS: PCP Internal Medicine; Visit Provider Internal Medicine
DX: G40.909 Epilepsy, unspecified, not intractable, without status epilepticus (principal); Z79.899 Other long term (current) drug therapy
CPT/HCPCS: 36415; 80175

== ENCOUNTER 2022-08-18 12:11 | Outpatient (REF) | payer OTHER, SELFPAY ==
[2022-08-18 14:11] LABS: Lithium 0.48 mmol/L (0.60-1.20)
[2022-08-18 14:17] LABS: Alanine Aminotransferase 11 U/L (0-31); Albumin Level 4.4 g/dL (3.5-5.0); Alkaline Phosphatase 67 U/L (39-117); Anion Gap 14 (12-20); Aspartate Amino Transferase 9 U/L (5-31); Bilirubin Total 0.5 mg/dL (0.0-1.0); Blood Urea Nitrogen 8 mg/dL (9-16); Calcium 10.2 mg/dL (8.4-10.2); Carbon Dioxide 26 mmol/L (22-29); Chloride 105 mmol/L (96-108); Estimated Glomerular Filt Rate > 60; Glucose Random 91 mg/dL (60-115); Potassium 4.6 mmol/L (3.3-5.1); Sodium 140 mmol/L (135-145); Total Protein 7.8 g/dL (6.5-8.0)
[2022-08-18 14:32] LABS: TSH reflex Free T4 2.03 uIU/mL (0.32-4.0)
== END 2022-08-18 12:12 | disposition home or self-care (01) ==
LOC: HO.LABR 12:11
PROVIDERS: Visit Provider Registered Nurse
DX: Z79.899 Other long term (current) drug therapy (principal)
CPT/HCPCS: 36415; 80053; 80178; 84443

== ENCOUNTER 2022-11-08 12:15 | Outpatient (REF) | payer OTHER, SELFPAY ==
[2022-11-08 13:31] LABS: Lithium 0.67 mmol/L (0.60-1.20)
[2022-11-08 13:47] LABS: Alanine Aminotransferase 6 U/L (0-31); Albumin Level 4.3 g/dL (3.5-5.0); Alkaline Phosphatase 59 U/L (39-117); Anion Gap 12 (12-20); Aspartate Amino Transferase 9 U/L (5-31); Bilirubin Total 0.3 mg/dL (0.0-1.0); Blood Urea Nitrogen 9 mg/dL (9-16); Calcium 9.8 mg/dL (8.4-10.2); Carbon Dioxide 26 mmol/L (22-29); Chloride 109 mmol/L (96-108); Estimated Glomerular Filt Rate > 60; Glucose Random 89 mg/dL (60-115); Potassium 4.6 mmol/L (3.3-5.1); Sodium 142 mmol/L (135-145); Total Protein 8.1 g/dL (6.5-8.0)
[2022-11-08 13:58] LABS: TSH reflex Free T4 1.99 uIU/mL (0.32-4.0)
== END 2022-11-08 12:16 | disposition home or self-care (01) ==
LOC: HO.LABR 12:15
PROVIDERS: PCP Internal Medicine; Visit Provider Registered Nurse
DX: F33.2 Major depressive disorder, recurrent severe without psychotic features (principal); Z79.899 Other long term (current) drug therapy
CPT/HCPCS: 36415; 80053; 80178; 84443

== ENCOUNTER → 2022-12-04 07:49 | Outpatient (BNVA) | payer OTHER, SELFPAY | PROVIDERS: PCP Internal Medicine; Visit Provider Nurse Practitioner Family | DX: G40.909 Epilepsy, unspecified, not intractable, without status epilepticus (principal) | CPT/HCPCS: 99202 ==

== ENCOUNTER 2023-01-24 13:49 | Outpatient (REF) | payer OTHER, SELFPAY ==
[2023-01-24 16:54] LABS: Lithium 0.75 mmol/L (0.60-1.20)
[2023-01-24 17:21] LABS: Alanine Aminotransferase 8 U/L (0-31); Albumin Level 4.5 g/dL (3.5-5.0); Alkaline Phosphatase 68 U/L (39-117); Anion Gap 13 (12-20); Aspartate Amino Transferase 9 U/L (5-31); Bilirubin Total 0.5 mg/dL (0.0-1.0); Blood Urea Nitrogen 7 mg/dL (9-16); Calcium 10.8 mg/dL (8.4-10.2); Carbon Dioxide 26 mmol/L (22-29); Chloride 107 mmol/L (96-108); Estimated Glomerular Filt Rate 57; Glucose Fasting 84 mg/dL (60-99); Potassium 4.6 mmol/L (3.3-5.1); Sodium 141 mmol/L (135-145); Total Protein 8.6 g/dL (6.5-8.0)
[2023-01-24 17:22] LABS: TSH reflex Free T4 2.12 uIU/mL (0.32-4.0)
== END 2023-01-24 13:50 | disposition home or self-care (01) ==
LOC: HO.LAB 13:49
PROVIDERS: PCP Internal Medicine; Visit Provider Registered Nurse
DX: F33.2 Major depressive disorder, recurrent severe without psychotic features (principal); Z79.899 Other long term (current) drug therapy
CPT/HCPCS: 36415; 80053; 80178; 84443

== ENCOUNTER 2023-05-30 12:46 | Outpatient (REF) | payer MEDICAID, SELFPAY ==
[2023-05-30 14:05] LABS: Lithium 0.63 mmol/L (0.60-1.20)
[2023-05-30 14:17] LABS: Alanine Aminotransferase 10 U/L (0-31); Albumin Level 4.4 g/dL (3.5-5.0); Alkaline Phosphatase 74 U/L (39-117); Anion Gap 12 (12-20); Aspartate Amino Transferase 11 U/L (5-31); Bilirubin Total 0.4 mg/dL (0.0-1.0); Blood Urea Nitrogen 11 mg/dL (9-16); Calcium 10.4 mg/dL (8.4-10.2); Carbon Dioxide 28 mmol/L (22-29); Chloride 105 mmol/L (96-108); Estimated Glomerular Filt Rate > 60; Glucose Random 90 mg/dL (60-115); Potassium 4.5 mmol/L (3.3-5.1); Sodium 140 mmol/L (135-145); Total Protein 8.6 g/dL (6.5-8.0)
[2023-05-30 14:21] LABS: TSH reflex Free T4 2.22 uIU/mL (0.32-4.0)
== END 2023-05-30 12:47 | disposition home or self-care (01) ==
LOC: HO.LAB 12:46
PROVIDERS: PCP Internal Medicine; Visit Provider Registered Nurse
DX: F33.2 Major depressive disorder, recurrent severe without psychotic features (principal); Z51.81 Encounter for therapeutic drug level monitoring
CPT/HCPCS: 36415; 80053; 80178; 84443

== ENCOUNTER 2023-08-24 11:16 | Outpatient (AMB) | payer OTHER, SELFPAY ==
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
[2023-08-24 11:39] VITALS: BP 115/70; PULSE 73; O2SAT 98; BMI 23.8
== END 2023-08-24 11:59 | disposition home or self-care (01) ==
PROVIDERS: PCP Internal Medicine; Visit Provider Nurse Practitioner Family
DX: G40.909 Epilepsy, unspecified, not intractable, without status epilepticus (principal)
CPT/HCPCS: 99213

== ENCOUNTER → 2023-08-24 11:16 | Outpatient (BNVA) | payer OTHER, SELFPAY | PROVIDERS: PCP Internal Medicine; Visit Provider Nurse Practitioner Family | DX: G40.909 Epilepsy, unspecified, not intractable, without status epilepticus (principal) | CPT/HCPCS: 99212 ==

== ENCOUNTER 2023-09-04 11:11 | Outpatient (REF) | payer OTHER, SELFPAY ==
[2023-09-04 13:01] LABS: Lithium 0.65 mmol/L (0.60-1.20)
[2023-09-04 13:38] LABS: Alanine Aminotransferase 11 U/L (0-31); Albumin Level 4.2 g/dL (3.5-5.0); Alkaline Phosphatase 74 U/L (39-117); Anion Gap 10 (12-20); Aspartate Amino Transferase 9 U/L (5-31); Bilirubin Total 0.2 mg/dL (0.0-1.0); Blood Urea Nitrogen 8 mg/dL (9-16); Calcium 9.9 mg/dL (8.4-10.2); Carbon Dioxide 23 mmol/L (22-29); Chloride 109 mmol/L (96-108); Estimated Glomerular Filt Rate > 60; Glucose Fasting 89 mg/dL (60-99); Potassium 3.9 mmol/L (3.3-5.1); Sodium 138 mmol/L (135-145); Total Protein 8.2 g/dL (6.5-8.0)
[2023-09-04 13:52] LABS: TSH reflex Free T4 2.73 uIU/mL (0.32-4.0)
== END 2023-09-04 11:12 | disposition home or self-care (01) ==
LOC: HO.LABR 11:11
PROVIDERS: PCP Internal Medicine; Visit Provider Registered Nurse
DX: F42.9 Obsessive-compulsive disorder, unspecified (principal); F33.2 Major depressive disorder, recurrent severe without psychotic features; Z79.899 Other long term (current) drug therapy
CPT/HCPCS: 36415; 80053; 80178; 84439; 84443

== ENCOUNTER 2023-12-03 11:33 | Outpatient (REF) | payer OTHER, SELFPAY ==
[2023-12-03 13:19] LABS: MANUAL DIFF FLAG NO
[2023-12-03 13:40] LABS: Basophils Percent Auto 0.7 % (0-2); Eosinophils Absolute Auto 0.1 X10*3/uL (0.0-0.4); Eosinophils Percent Auto 2.4 % (0-4); Hematocrit 38.4 % (37.0-47.0); Hemoglobin 11.6 g/dl (12.0-16.0); Imm Gran Abs Auto 0.01 X10*3/uL (0.00-0.03); Imm Gran Pct Auto 0.2 % (0.0-0.4); Lymphocytes Absolute Auto 1.4 X10*3/uL (1.2-4.9); Lymphocytes Percent Auto 23.7 % (20-40); Mean Corpuscular HGB Conc 30.2 g/dl (31.0-35.0); Mean Corpuscular Hemoglobin 29.1 pg (27.0-33.0); Mean Corpuscular Volume 96.2 fL (80.0-98.0); Mean Platelet Volume 8.8 fL (9.4-12.3); Monocytes Absolute Auto 0.5 X10*3/uL (0.1-1.2); Monocytes Percent Auto 8.2 % (2-11); Neutrophils Absolute Auto 3.7 x10*3/uL (2.0-8.3); Neutrophils Percent Auto 64.8 % (45-73); Platelet Count 458 X10*3/uL (160-400); Red Blood Count 3.99 X10*6/uL (4.20-5.50); Red Cell Distribution Width 13.2 % (11.0-16.0); White Blood Count 5.7 X10*3/uL (4.8-10.8)
[2023-12-03 13:57] LABS: Alanine Aminotransferase 12 U/L (0-31); Albumin Level 4.2 g/dL (3.5-5.0); Alkaline Phosphatase 75 U/L (39-117); Anion Gap 13 (12-20); Aspartate Amino Transferase 11 U/L (5-31); Bilirubin Total 0.3 mg/dL (0.0-1.0); Blood Urea Nitrogen 10 mg/dL (9-16); Calcium 10.4 mg/dL (8.4-10.2); Carbon Dioxide 26 mmol/L (22-29); Chloride 108 mmol/L (96-108); Estimated Glomerular Filt Rate > 60; Glucose Random 109 mg/dL (60-115); Potassium 4.4 mmol/L (3.3-5.1); Sodium 143 mmol/L (135-145); Total Protein 8.2 g/dL (6.5-8.0)
== END 2023-12-03 11:34 | disposition home or self-care (01) ==
LOC: HO.HMGCLDS 11:33
PROVIDERS: PCP Internal Medicine; Visit Provider Nurse Practitioner Family
DX: G40.909 Epilepsy, unspecified, not intractable, without status epilepticus (principal); Z79.899 Other long term (current) drug therapy
CPT/HCPCS: 36415; 80053; 80175; 85025

== ENCOUNTER 2023-12-15 14:34 | Emergency (ER) | payer OTHER, SELFPAY ==
--- NOTE | ~2023-12-15 | CT_ITS ---
EXAMINATION: CT head/brain wo IV con CLINICAL INFORMATION: Reason for Exam tremors COMPARISON: None. TECHNIQUE: Contiguous axial imaging was performed from the skull base to vertex without intravenous contrast. Sagittal and coronal reformatted images were obtained. This CT examination was performed using dose optimization techniques as appropriate, variously including the following: * Automated exposure control * Adjustment of mA and/or kV according to patient size (this includes techniques or standardized protocols for targeted exams where dose is matched to indication/reason for exam; i.e. extremities or head) Use of iterative reconstruction technique DLP: 629 mGy-cm FINDINGS: No acute osseous or soft tissue abnormality. The mastoids are clear. Left maxillary sinus retention cyst. Postsurgical changes from right-sided craniectomy with extensive encephalomalacia throughout the right cerebral hemisphere with associated ex vacuo dilatation of the right lateral ventricle. There is mild rightward midline shifts on the basis of right cerebral volume loss. There is a right parietal approach ventriculoperitoneal shunt catheter which terminates along the region of the body of the left lateral ventricle. Apart from the right lateral ventricle, the ventricular system is slitlike in caliber. There is no evidence of acute intracranial hemorrhage or territorial infarction. No extra-axial fluid collections are identified. CT/CT head/brain wo IV con IMPRESSION: 1. No acute intracranial hemorrhage or acute territorial edematous infarction. 2. Postsurgical changes from right-sided craniectomy with extensive encephalomalacia throughout the right cerebral hemisphere. Associated volume loss and mild rightward midline shift. 3. Right parietal approach ventriculoperitoneal shunt catheter terminates along the region of the body of the left lateral ventricle. Apart from the right lateral ventricle which demonstrates ex vacuo dilatation, the ventricular system is slitlike in caliber.
[2023-12-15 15:06] VITALS: BP 119/69; PULSE 99; RESP 16; TEMP 36.9; O2SAT 98; BMI 23.2
--- NOTE | 2023-12-15 15:08 | ED_ITS ---
HPI - General Adult General Chief complaint: General Medical Stated complaint: tremors Time Seen by Provider: 12/15/23 17:49 Source: patient Mode of arrival: ambulatory Limitations: no limitations History of Present Illness ED Provider: Elicia JERONIMO HPI narrative: 38 yo female with past medical history of anxiety, depression, stroke w/ left sided hemiparesis, presenting with tremors, increased thirst, and nausea x 2 days. She reports she takes lithium BID for mood stabilization. She reports experiencing tremors in left lower extremity at baseline after stroke in 2005, but in the past 2 days has noticed tremors in bilateral upper extremities and lower extremities that come and go. Also reports polydipsia but denies urinary frequency and dysuria. She reports nausea yesterday with episodes of dry heaving but no vomiting, denies nausea or abdominal pain currently. Reports increasing anxiety and panic but no si or hi. Denies chest pain, shortness of breath, abdominal pain, fevers, chills. Related Data Home Medications ?Medication ?Instructions ?Recorded ?Confirmed lithium carbonate 300 mg capsule 300 mg PO .AM 12/04/22 12/15/22 lithium carbonate 300 mg capsule 450 mg PO BEDTIME 12/04/22 12/15/22 Previous Rx's ?Medication ?Instructions ?Recorded sertraline 100 mg tablet 100 mg PO BEDTIME 30 days #30 tabs 12/11/22 cholecalciferol (vitamin D3) 25 25 mcg PO DAILY 90 days #90 caps 07/29/23 mcg (1,000 unit) capsule (Vitamin D3) folic acid 1 mg tablet 1 mg PO DAILY 90 days #90 tabs 08/09/23 lamotrigine 100 mg tablet See Rx Instructions PO DAILY 30 10/18/23 days #135 tabs Allergies Allergy/AdvReac Type Severity Reaction Status Date / Time potassium AdvReac Intermediate panic Verified 12/15/23 15:11 attacks Review of Systems 2 Review of Systems: Yes all other systems are reviewed and are negative PMFSH Past Medical History Attestation statement: The following information was validated with the patient. Source: old records reviewed and nursing notes reviewed Medical History Anxiety, generalized Cannabis use disorder, mild, abuse CVA (cerebral vascular accident) Seizures TBI (traumatic brain injury) Surgical History History of brain shunt History of bilateral tubal ligation History of craniotomy Family History Family History Father No problems noted. Mother Diabetes HTN (hypertension) Heart disease Maternal Aunt Colon cancer Brother Diverticular disease Depression Anxiety Brother No problems noted. Sister No problems noted. Daughter Anxiety Depression ADHD Other Mental health disorder Substance use disorder Social History Social History Household Members: Spouse and Children Household Members Other:: , 13 yo daughter Housing: Apartment Do you presently have visiting nurse or other home services: Yes ([employer]) Unable to assess alcohol history related to: Unknown Alcohol intake: never Patient Tobacco Use Status: Never used Tobacco Smoked in Last 30 Days: No e-Cigarette/Vaping Use: Never Used Use of substances other than those prescribed or required for medical reasons: No Substance Use Type: Marijuana Advance Directives: No Advance Directives Information Provided: No Do you have a plan to hurt others: No Plan service: No Current occupational status: unemployed Sexual orientation: Straight/Heterosexual Cognitive needs: No Hearing needs: No Vision needs: No Physical Exam ED Vital Signs: Vital Signs - 24 hr 12/15/23 15:06 12/15/23 19:31 Temperature 98.4 F 98.3 F Pulse Rate 99 97 Respiratory Rate 16 18 Blood Pressure 119/69 122/79 Pulse Oximetry 98 100 Oxygen Delivery Method Room Air Room Air BMI result Body Mass Index 23.2 vss Appearance: Alert.? Oriented X3.? No acute distress.? Head: Normocephalic, atraumatic, no step-offs or deformities Eyes: Pupils equal, round and reactive to light.? Neck: Normal inspection.? Neck supple.? CVS: Normal heart rate and rhythm.? Pulses normal.? Respiratory: No respiratory distress.? Breath sounds normal.? Abdomen: Soft and nontender.? Skin: Skin warm and dry.? Normal skin color.? Normal skin turgor.? Extremities: No lower extremity edema.? No calf ttp. 4/5 strength to right upper and lower extremities. L sided weakness UE and LE. + fine tremors at rest and with movement in bilateral UE and LLE Neuro: Oriented X 3.? No sensory deficit. CN 2-12 intact. Left-sided weakness at baseline secondary to stroke. Course Course Course Narrative: This is a Rapid Medical Examination (RME) performed by Rimma Sanchez PA-C in triage. Full HPI, ROS, assessment and treatment plan per primary provider in the Main ED. 38 yo female hx of seizure disorder presents to the ED today with tremors to right side of body, nausea and panic attacks x2 days. She notes concern as she takes lithium. There have been no recent changes to her lithium or medication regimen in general. Has been taking her medications as prescribed. Denies other concerns at present. +tremor noted to right UE. no hyperreflexia. no agitation. not diaphoretic. Plan: labs, lithium levels ordered Reevaluation(s) Reevaluation #1: Patient feeling better after Benadryl. CBC unremarkable. Chemistry no acute findings requiring intervention. Beta hCG negative. [place] level within normal range. On re-evaluation patient is feeling better, not really having much tremors. She states she feels like they come and go. She tells me that she has an appointment with her med prescriber on Sunday to discuss lithium, lamotrigine and sertraline. She will discuss these symptoms with her prescriber. Head CT still pending. Time: 19:29 Reevaluation #2: CT head no acute intracranial hemorrhage or acute territorial edematous infarction. Postsurgical changes from right-sided craniotomy with extensive encephalomalacia throughout the right cerebral hemisphere. This is associated with volume loss and mild rightward midline shift, this is patient's baseline, in a chronic finding. Right parietal approach menstrual ventriculoperitoneal shunt catheter terminates along the region of the body of the left lateral ventricle. Apart from the right lateral ventricle which demonstrates ex vacuo dilation. Discussed these CT findigns w/ my attending who agrees chronic in nature nothing to be done acutely about this. Patient is not having tremors at this time and feels better. She will follow up with psych and her med prescribers. Educated patient on diagnosis and treatment plan, answered all question, patient verbalizes understanding. At this time patient will be discharged home, advised to return with new or worsening symptoms. Educated on worrisome signs and symptoms and when to return. At this time I feel comfortable discharge home. Time: 21:05 Medications Administered Discontinued Medications Generic Name Dose Route Start Last Admin Trade Name Gisell PRN Reason Stop Dose Admin Diphenhydramine HCl 25 mg 12/15/23 18:01 12/15/23 18:36 Diphenhydramine Hcl 25 Mg Capsule PO 12/15/23 18:02 25 mg ONCE ONE Administration Medical Decision Making Medical Decision Making [facility] Narrative: 38 year old female presenting with tremors in bilateral upper extremities and polydispia x 2 days. Medical history includes depression and anxiety managed with lithium. PE shows + fine tremors at rest and with movement in bilateral UE. Left-sided weakness at baseline secondary to stroke, Hx and PE concerning for medication adverse effects vs metabolic derangements. Unlikely stroke, posterior stroke, ich. Unlikely lithium tox or OD . Other differentials include acute panic or anxiety attack Plan- labs, Differential Diagnosis Differential Diagnoses: The differential diagnosis associated with the presentation includes Hx and PE concerning for medication adverse effects vs metabolic derangements. Unlikely stroke, posterior stroke, ich. Unlikely lithium tox or OD . Other differentials include acute panic or anxiety attack Admission/Observation Consideration of admission/observation: Escalation of care including admission/observation considered Unlikely Lab Data [facility] Lab Attestation statement: I reviewed the patient's lab results. 12/15/23 16:50 12/15/23 16:50 Labs: Lab Results 12/15/23 Range/Units 16:50 WBC 6.9 (4.8-10.8) X10*3/uL RBC 4.29 (4.20-5.50) X10*6/uL Hgb 12.4 (12.0-16.0) g/dl Hct 39.5 (37.0-47.0) % MCV 92.1 (80.0-98.0) fL MCH 28.9 (27.0-33.0) pg MCHC 31.4 (31.0-35.0) g/dl RDW 12.7 (11.0-16.0) % Plt Count 450 H (160-400) X10*3/uL MPV 8.7 L (9.4-12.3) fL Immature Gran % (Auto) 0.3 (0.0-0.4) % Neut % (Auto) 67.1 (45-73) % Lymph % (Auto) 19.5 L (20-40) % [place] % (Auto) 10.5 (2-11) % Eos % (Auto) 2.0 (0-4) % Baso % (Auto) 0.6 (0-2) % Lymph # (Auto) 1.3 (1.2-4.9) X10*3/uL [place] # (Auto) 0.7 (0.1-1.2) X10*3/uL Eos # (Auto) 0.1 (0.0-0.4) X10*3/uL Baso # (Auto) 0.0 (0.0-0.2) X10*3/uL Abs Immat Gran (auto) 0.02 (0.00-0.03) X10*3/uL Absolute Neuts (auto) 4.6 (2.0-8.3) x10*3/uL Absolute Nucleated RBC 0.000 (0.0-0.012) X10*3/uL Nucleated RBC % (auto) 0.0 (0.0-0.2) /100WBC Smear Tech's Comments VERIFIED Sodium 138 (135-145) mmol/L Potassium 4.5 (3.3-5.1) mmol/L Chloride 108 (96-108) mmol/L Carbon Dioxide 18 L (22-29) mmol/L Anion Gap 17 (12-20) BUN 11 (9-16) mg/dL Creatinine 0.75 (0.5-1.4) mg/dL Estim Creat Clear Calc 107.3 Estimated GFR > 60 Random Glucose 93 (60-115) mg/dL Calcium 10.4 H (8.4-10.2) mg/dL Magnesium 2.2 (1.6-2.6) mg/dL Total Bilirubin 0.3 (0.0-1.0) mg/dL AST 15 (5-31) U/L ALT 15 (0-31) U/L Alkaline Phosphatase 82 (39-117) U/L Total Creatine Kinase 38 (26-140) U/L Total Protein 8.6 H (6.5-8.0) g/dL Albumin 4.1 (3.5-5.0) g/dL Lipase 27 (8-78) U/L Beta HCG, Quant < 2 mIU/mL [place] 0.81 (0.60-1.20) mmol/L Independent Interpretation I performed an independent interpretation of an: CT Scan (CT/CT head/brain wo IV con IMPRESSION: 1. No acute intracranial hemorrhage or acute territorial edematous infarction. 2. Postsurgical changes from right-sided craniectomy with extensive encephalomalacia throughout the right cerebral hemisphere. Associated volume loss and mild rightward midline) Radiology Impression Discussion of test interpretation with radiology: I have reviewed the radiologist's reading. External Record Review External record reviewed: Inpatient record, Office record, Outpatient record, Prior outpatient labs and Prior outpatient radiology Chronic Conditions Patient?s care impacted by: Other (CVA, left-sided hemiparesis, lithium use, excessive anger, depression, anxiety, epilepsy) Critical Care Time Critical Care Time Critical Care Time: No Discharge Plan Discharge Clinical Impression: Tremor, Anxiety Patient Disposition: Home, Self-Care Instructions: Anxiety (ED), Tremors (ED) Additional Instructions: Take your medications as prescribed. If you were prescribed antibiotics today, it is important that you take your medication to their entirety, do not skip any doses, do not finish them early. Follow-up with your primary care provider this week. Return to the emergency department with new or worsening symptoms. Such as fevers, chills, chest pain, shortness of breath, nausea, vomiting, dizziness, headache, vision changes, lethargy In case of emergency call 911 CT/CT head/brain wo IV con IMPRESSION: 1. No acute intracranial hemorrhage or acute territorial edematous infarction. 2. Postsurgical changes from right-sided craniectomy with extensive encephalomalacia throughout the right cerebral hemisphere. Associated volume loss and mild rightward midline shift. 3. Right parietal approach ventriculoperitoneal shunt catheter terminates along the region of the body of the left lateral ventricle. Apart from the right lateral ventricle which demonstrates ex vacuo dilatation, the ventricular system is slitlike in caliber. Prescriptions: No Action sertraline 100 mg tablet 100 mg PO BEDTIME 30 Days Qty: 30 0RF cholecalciferol (vitamin D3) [Vitamin D3] 25 mcg (1,000 unit) capsule 25 mcg PO DAILY 90 Days Qty: 90 3RF folic acid 1 mg tablet 1 mg PO DAILY 90 Days Qty: 90 3RF lamotrigine 100 mg tablet See Rx Instructions PO DAILY 30 Days Qty: 135 3RF Rx Instructions: Take 250mg in am and 200mg at bedtime orally daily; lithium carbonate 300 mg capsule 450 mg PO BEDTIME lithium carbonate 300 mg capsule 300 mg PO .AM Referrals: Clara Qiu MD [Primary Care Provider] - 2 days Print Language: Turkmen
--- NOTE | 2023-12-15 15:13 | ECG_ITS ---
Test Reason : TREMOR Blood Pressure : / mmHG Vent. Rate : 091 BPM Atrial Rate : 091 BPM P-R Int : 118 ms QRS Dur : 072 ms QT Int : 322 ms P-R-T Axes : 040 007 013 degrees QTc Int : 396 ms Normal sinus rhythm Normal ECG When compared with ECG of 05-NOV-2021 12:11, No significant change was found Referred By: Alanis Sanchez Electronically Signed By:ENRIQUE LOBO MD
--- NOTE | 2023-12-15 15:37 | PC.NURSE ---
Patient states that for last 2 days she has had an increase in the tremors on her left and right side (worse on right side) states has had panic attacks and feels as though her lithium levels are off. States take 200mg in am and 450 at bedtime. Reports hx of seizures. Patient reports hx of stroke in 2005
[2023-12-15 17:01] LABS: Basophils Percent Auto 0.6 % (0-2); Hemoglobin 12.4 g/dl (12.0-16.0); Imm Gran Abs Auto 0.02 X10*3/uL (0.00-0.03); Imm Gran Pct Auto 0.3 % (0.0-0.4); MANUAL DIFF FLAG SCAN; Mean Corpuscular Volume 92.1 fL (80.0-98.0); PLT CLUMP 1; Red Cell Distribution Width 12.7 % (11.0-16.0); SCAN SMEAR FLAG 1
[2023-12-15 17:03] LABS: Eosinophils Absolute Auto 0.1 X10*3/uL (0.0-0.4); Hematocrit 39.5 % (37.0-47.0); Lymphocytes Absolute Auto 1.3 X10*3/uL (1.2-4.9); Lymphocytes Percent Auto 19.5 % (20-40); Mean Corpuscular HGB Conc 31.4 g/dl (31.0-35.0); Mean Corpuscular Hemoglobin 28.9 pg (27.0-33.0); Mean Platelet Volume 8.7 fL (9.4-12.3); Monocytes Absolute Auto 0.7 X10*3/uL (0.1-1.2); Monocytes Percent Auto 10.5 % (2-11); Neutrophils Absolute Auto 4.6 x10*3/uL (2.0-8.3); Neutrophils Percent Auto 67.1 % (45-73); Red Blood Count 4.29 X10*6/uL (4.20-5.50)
[2023-12-15 17:07] LABS: Lithium 0.81 mmol/L (0.60-1.20)
[2023-12-15 17:17] LABS: White Blood Count 6.9 X10*3/uL (4.8-10.8)
[2023-12-15 17:23] LABS: Alanine Aminotransferase 15 U/L (0-31); Albumin Level 4.1 g/dL (3.5-5.0); Alkaline Phosphatase 82 U/L (39-117); Anion Gap 17 (12-20); Aspartate Amino Transferase 15 U/L (5-31); Bilirubin Total 0.3 mg/dL (0.0-1.0); Blood Urea Nitrogen 11 mg/dL (9-16); Calcium 10.4 mg/dL (8.4-10.2); Carbon Dioxide 18 mmol/L (22-29); Chloride 108 mmol/L (96-108); Creatinine Clr Calc Pharmacy 107.3; Estimated Glomerular Filt Rate > 60; Glucose Random 93 mg/dL (60-115); HCG Quantitative < 2 mIU/mL; Lipase 27 U/L (8-78); Magnesium 2.2 mg/dL (1.6-2.6); Potassium 4.5 mmol/L (3.3-5.1); Sodium 138 mmol/L (135-145); Total Protein 8.6 g/dL (6.5-8.0)
[2023-12-15 18:18] LABS: Platelet Count 450 X10*3/uL (160-400); SLIDE REVIEW VERIFIED
[2023-12-15] MEDS: diphenhydrAMINE HCL 25 MG CAPSULE PO (18:36)
--- NOTE | 2023-12-15 19:06 | PC.NURSE ---
Assumed care of pt. Pt lying on stretcher, no acute distress at this time. perparoing for CT head with possible discharge with no findings.
[2023-12-15 19:31] VITALS: BP 122/79; PULSE 97; RESP 18; TEMP 36.8; O2SAT 100
--- NOTE | 2023-12-15 19:41 | PC.NURSE ---
per pt, took all night time home medications. Provider notified and cleared as ok.
[2023-12-15 21:30] VITALS: BP 122/79; PULSE 97; RESP 18; TEMP 36.8; O2SAT 100
== END 2023-12-15 21:31 | disposition home or self-care (01) ==
PROVIDERS: Physician Assistant Medical; Emergency Provider Emergency Medicine; PCP Internal Medicine
DX: R25.1 Tremor, unspecified (principal); F41.9 Anxiety disorder, unspecified; R63.1 Polydipsia; I69.354 Hemiplegia and hemiparesis following cerebral infarction affecting left non-dominant side; Z79.899 Other long term (current) drug therapy
CPT/HCPCS: 36415; 70450; 80053; 80178; 82550; 83690; 83735; 84702; 85025; 93005; 99284

== ENCOUNTER → 2023-12-15 15:13 | Outpatient (BNV) | payer OTHER, SELFPAY | PROVIDERS: Emergency Provider Emergency Medicine; PCP Internal Medicine; Visit Provider Internal Medicine Cardiovascular Disease | DX: R25.1 Tremor, unspecified (principal) | CPT/HCPCS: 93010 ==

== ENCOUNTER 2023-12-19 11:03 | Outpatient (AMB) | payer OTHER, SELFPAY ==
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
[2023-12-19 11:12] VITALS: BP 134/72; PULSE 95; O2SAT 98; BMI 23.7
== END 2023-12-19 11:33 | disposition home or self-care (01) ==
PROVIDERS: PCP Internal Medicine; Visit Provider Internal Medicine
DX: Z00.01 Encounter for general adult medical examination with abnormal findings (principal); L02.422 Furuncle of left axilla; F33.2 Major depressive disorder, recurrent severe without psychotic features; G40.802 Other epilepsy, not intractable, without status epilepticus; G81.94 Hemiplegia, unspecified affecting left nondominant side; E78.9 Disorder of lipoprotein metabolism, unspecified; Z79.899 Other long term (current) drug therapy; R26.1 Paralytic gait
CPT/HCPCS: 99213; 99395

== ENCOUNTER 2024-01-18 20:48 | Emergency (ER) | payer OTHER, SELFPAY ==
--- NOTE | ~2024-01-18 | CT_ITS ---
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 This CT examination was performed using dose optimization techniques as appropriate, variously including the following: *Automated exposure control *Adjustment of mA and/or kV according to patient size (this includes techniques or standardized protocols for targeted exams where dose is matched to indication/reason for exam; i.e. extremities or head) *Use of iterative reconstruction technique DLP: 663 mGy-cm FINDINGS: Redemonstrated right parietal approach ventriculoperitoneal shunt catheter terminating in the region of the left lateral ventricular body. Redemonstrated postoperative changes from right-sided craniectomy with extensive encephalomalacia throughout the right cerebral hemisphere and ex vacuo dilatation of a portion of the right lateral ventricle without significant change from prior. Remainder of the ventricular system is nondilated. There is no evidence of acute intracranial hemorrhage or territorial infarction. Slight chronic rightward midline shift is unchanged from prior. No new mass effect is seen. Rosa to white matter differentiation is otherwise well preserved. No acute extra-axial fluid collections are identified. The ventricles are normal in size. The osseous structures and soft tissues are normal. Right maxillary sinus because retention cyst. Small mucus retention cyst in the right sphenoid sinus. The mastoid air cells are well-aerated. CT/CT head/brain wo IV con IMPRESSION: No acute intracranial pathology. Chronic findings as noted above, including postoperative changes, without significant change from 12/15/2023.
[2024-01-18 20:54] VITALS: BP 139/96; PULSE 101; RESP 16; TEMP 36.8; O2SAT 98; BMI 23.6
[2024-01-18 22:11] VITALS: BP 129/81; PULSE 83; RESP 18; TEMP 36.3; O2SAT 100
[2024-01-18 23:51] VITALS: BP 138/83; PULSE 72; RESP 16; TEMP 36.2; O2SAT 96
--- NOTE | 2024-01-19 02:06 | ECG_ITS ---
Test Reason : eye pain Blood Pressure : / mmHG Vent. Rate : 096 BPM Atrial Rate : 096 BPM P-R Int : 124 ms QRS Dur : 076 ms QT Int : 562 ms P-R-T Axes : 064 031 077 degrees QTc Int : 709 ms Normal sinus rhythm Nonspecific ST and T wave abnormality Abnormal ECG When compared with ECG of 15-DEC-2023 15:59, Non-specific change in ST segment in Lateral leads Nonspecific T wave abnormality now evident in Lateral leads QT has lengthened Referred By: Bridger Mooney Electronically Signed By:Ash Lee
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
[2024-01-19 02:49] LABS: MANUAL DIFF FLAG NO
[2024-01-19 02:51] VITALS: BP 128/92; PULSE 98; RESP 18; TEMP 36.3; O2SAT 98
[2024-01-19 02:56] LABS: Basophils Absolute Auto 0.1 X10*3/uL (0.0-0.2); Basophils Percent Auto 0.8 % (0-2); Eosinophils Absolute Auto 0.4 X10*3/uL (0.0-0.4); Eosinophils Percent Auto 4.3 % (0-4); Hemoglobin 13.8 g/dl (12.0-16.0); Imm Gran Abs Auto 0.03 X10*3/uL (0.00-0.03); Imm Gran Pct Auto 0.3 % (0.0-0.4); Lymphocytes Absolute Auto 2.4 X10*3/uL (1.2-4.9); Lymphocytes Percent Auto 24.6 % (20-40); Mean Corpuscular HGB Conc 31.4 g/dl (31.0-35.0); Mean Corpuscular Hemoglobin 28.2 pg (27.0-33.0); Mean Corpuscular Volume 89.8 fL (80.0-98.0); Mean Platelet Volume 8.3 fL (9.4-12.3); Monocytes Absolute Auto 0.7 X10*3/uL (0.1-1.2); Neutrophils Absolute Auto 6.1 x10*3/uL (2.0-8.3); Platelet Count 496 X10*3/uL (160-400); Red Cell Distribution Width 13.5 % (11.0-16.0); White Blood Count 9.7 X10*3/uL (4.8-10.8)
[2024-01-19 03:14] LABS: Alanine Aminotransferase 15 U/L (0-31); Albumin Level 4.7 g/dL (3.5-5.0); Alkaline Phosphatase 81 U/L (39-117); Anion Gap 16 (12-20); Aspartate Amino Transferase 13 U/L (5-31); Bilirubin Direct < 0.2 mg/dL (0.0-0.5); Bilirubin Total 0.2 mg/dL (0.0-1.0); Blood Urea Nitrogen 6 mg/dL (9-16); Calcium 11.2 mg/dL (8.4-10.2); Carbon Dioxide 22 mmol/L (22-29); Chloride 106 mmol/L (96-108); Creatinine Clr Calc Pharmacy 73.1; Estimated Glomerular Filt Rate 56; Glucose Random 104 mg/dL (60-115); Magnesium 2.6 mg/dL (1.6-2.6); Potassium 4.6 mmol/L (3.3-5.1); Sodium 139 mmol/L (135-145)
[2024-01-19 03:17] LABS: Troponin-I High Sensitivity < 2.7 ng/L (<3.5-17.0)
[2024-01-19 05:10] VITALS: BP 131/93; PULSE 81; RESP 17; TEMP 36.6; O2SAT 96
[2024-01-19 05:16] VITALS: BP 131/93; PULSE 81; RESP 17; TEMP 36.6; O2SAT 96
== END 2024-01-19 05:17 | disposition home or self-care (01) ==
PROVIDERS: Physician Assistant Medical; Emergency Provider Emergency Medicine; PCP Internal Medicine
DX: H53.8 Other visual disturbances (principal); H57.13 Ocular pain, bilateral; F12.10 Cannabis abuse, uncomplicated; I69.354 Hemiplegia and hemiparesis following cerebral infarction affecting left non-dominant side; H53.47 Heteronymous bilateral field defects; E78.5 Hyperlipidemia, unspecified; F41.1 Generalized anxiety disorder; F33.2 Major depressive disorder, recurrent severe without psychotic features; Z87.820 Personal history of traumatic brain injury; Z79.899 Other long term (current) drug therapy
CPT/HCPCS: 36415; 70450; 80048; 80076; 83735; 84484; 85025; 93005; 99284

== ENCOUNTER → 2024-01-19 02:06 | Outpatient (BNV) | payer OTHER, SELFPAY | PROVIDERS: Emergency Provider Emergency Medicine; PCP Internal Medicine; Visit Provider Internal Medicine Cardiovascular Disease | DX: R94.31 Abnormal electrocardiogram [ECG] [EKG] (principal) | CPT/HCPCS: 93010 ==

== ENCOUNTER 2024-01-29 12:56 | Outpatient (AMB) | payer OTHER, SELFPAY ==
[2024-01-29 12:57] VITALS: BP 120/82; PULSE 85; O2SAT 98; BMI 23.5
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
== END 2024-01-29 15:00 | disposition home or self-care (01) ==
PROVIDERS: PCP Internal Medicine; Visit Provider Internal Medicine
DX: E83.52 Hypercalcemia (principal); M24.542 Contracture, left hand; R26.1 Paralytic gait
CPT/HCPCS: 99214

== ENCOUNTER 2024-01-29 13:17 | Outpatient (REF) | payer OTHER, SELFPAY ==
[2024-01-29 16:01] LABS: MANUAL DIFF FLAG NO
[2024-01-29 16:22] LABS: Basophils Absolute Auto 0.1 X10*3/uL (0.0-0.2); Basophils Percent Auto 1.1 % (0-2); Eosinophils Absolute Auto 0.3 X10*3/uL (0.0-0.4); Eosinophils Percent Auto 4.3 % (0-4); Hematocrit 39.7 % (37.0-47.0); Hemoglobin 12.1 g/dl (12.0-16.0); Imm Gran Abs Auto 0.01 X10*3/uL (0.00-0.03); Imm Gran Pct Auto 0.2 % (0.0-0.4); Lymphocytes Absolute Auto 1.7 X10*3/uL (1.2-4.9); Lymphocytes Percent Auto 27.6 % (20-40); Mean Corpuscular HGB Conc 30.5 g/dl (31.0-35.0); Mean Corpuscular Hemoglobin 27.9 pg (27.0-33.0); Mean Corpuscular Volume 91.5 fL (80.0-98.0); Monocytes Absolute Auto 0.3 X10*3/uL (0.1-1.2); Monocytes Percent Auto 5.4 % (2-11); Neutrophils Absolute Auto 3.9 x10*3/uL (2.0-8.3); Neutrophils Percent Auto 61.4 % (45-73); Platelet Count 493 X10*3/uL (160-400); Red Blood Count 4.34 X10*6/uL (4.20-5.50); Red Cell Distribution Width 14.6 % (11.0-16.0); White Blood Count 6.3 X10*3/uL (4.8-10.8)
[2024-01-29 16:31] LABS: Calcium 10.4 mg/dL (8.4-10.2)
[2024-01-29 16:51] LABS: TSH reflex Free T4 79.59 uIU/mL (0.32-4.0)
[2024-01-29 17:59] LABS: Free T4 (Free Thyroxine) < 0.42 ng/dL (0.71-1.85)
[2024-02-04 14:49] LABS: Vitamin D 25-OH, D2 <4 ng/mL; Vitamin D 25-OH, D3 32 ng/mL; Vitamin D 25-OH, Total 32 ng/mL (30-100)
[2024-02-12 01:19] LABS: Parathyroid Hormone Related Pr 8 pg/mL (11-20)
== END 2024-01-29 13:18 | disposition home or self-care (01) ==
LOC: HO.HMGCLDS 13:17
PROVIDERS: PCP Internal Medicine; Visit Provider Internal Medicine
DX: E83.52 Hypercalcemia (principal); E78.9 Disorder of lipoprotein metabolism, unspecified; G40.802 Other epilepsy, not intractable, without status epilepticus; F33.2 Major depressive disorder, recurrent severe without psychotic features
CPT/HCPCS: 36415; 82306; 82310; 83519; 84439; 84443; 85025

== ENCOUNTER 2024-02-14 07:56 | Outpatient (AMB) | payer OTHER, SELFPAY ==
--- NOTE | 2024-02-14 08:13 | MHC.PC.OV ---
Intake Visit Reasons: Discuss Results~ [phone] Allergies potassium Adverse Reaction (Intermediate, Verified 02/14/24 08:15) panic attacks Medication List - Last Reconciled 02/14/24 by Clara Qiu MD cholecalciferol (vitamin D3) (Vitamin D3) 25 mcg PO DAILY 90 days folic acid 1 mg PO DAILY 90 days lamotrigine Take 250mg in am and 200mg at bedtime orally daily; 30 days levothyroxine 50 mcg PO DAILY lithium carbonate 450 mg PO BEDTIME lithium carbonate 300 mg PO .AM sertraline 100 mg PO BEDTIME Tobacco use date assessed: 02/14/24 Dental Screening Dental Screen Date: 02/14/24 Did you have a dental visit in the last 12 months?: Yes Did you have a dental problem in the last 6 months where you did not have access to dental care?: No Was dental information given to patient?: Patient has dentist HPI Discuss Results~ [phone] HPI Details Patient is 38 year old female at her recent labs, her TSH level came back very high she is also on lithium , which can be the cause of this problem she has apt coming up with her prescriber in few days she will talk about this, may be she can be switched to a different medication mean while she is to continue 50 mcg of Levothyroxine and repeat labs in 6 wks US thyroid also ordered [facility] Medical History Cannabis use disorder, mild, abuse TBI (traumatic brain injury) CVA (cerebral vascular accident) Seizures Anxiety, generalized Surgical History History of brain shunt History of bilateral tubal ligation History of craniotomy Family History Father No problems noted. Mother Diabetes HTN (hypertension) Heart disease Maternal Aunt Colon cancer Brother Diverticular disease Depression Anxiety Brother No problems noted. Sister No problems noted. Daughter Anxiety Depression ADHD Other Mental health disorder Substance use disorder Social History Household Members: Spouse and Children Household Members Other:: , 13 yo daughter Housing: Apartment Do you presently have visiting nurse or other home services: Yes ([facility]) Unable to assess alcohol history related to: Unknown Alcohol intake: never Patient Tobacco Use Status: Never used Tobacco e-Cigarette/Vaping Use: Never Used Substance Use Type: Marijuana service: No Current occupational status: unemployed Sexual orientation: Straight/Heterosexual Cognitive needs: No Hearing needs: No Vision needs: No Questionnaire Thrive Questionnaire Date Thrive assessed: 01/29/24 AUDIT C Alcohol Use Questionnaire (AUDIT-C) 1. How often do you have a drink containing alcohol?: Never 3. How often do you have six or more drinks on one occasion?: Never Total Score: 0 Score Reviewed/Action Taken: Yes TIKA-7 AMB Questionnaire TIKA-7 Date TIKA - 7 assessed: 01/29/24 Source: Developed by Drs. Deandre Bateman, Corrie Cartwright, Sidney Garcia and colleagues, with an educational puneet from [employer]. Review of Systems Const Denies chills and Denies fever(s) ENT Denies epistaxis and Denies nasal discharge Card Denies chest pain Resp Denies chest congestion, Denies cough and Denies hemoptysis GI Denies diarrhea and Denies nausea Skin/Breast Denies rash Neuro Reports no additional complaints Psych Reports no additional complaints Endo Reports no additional complaints Physical exam (Primary Care) Tobacco/Smoking Status: Tobacco use Status Tobacco use date assessed 02/14/24 02/14/24 08:17 Patient Tobacco Use Status Never used Tobacco 02/14/24 08:15 e-Cigarette/Vaping Use Never Used 02/14/24 08:15 Thrive Assessment: Date of Thrive Assessment Date Thrive assessed 01/29/24 02/14/24 08:15 Telehealth Telehealth Telehealth Platform: [facility] Location of provider rendering services: practice address Location of patient: address on file Patient Identification confirmed using: Name, : Yes Telehealth method: video Patient verbally consented to treatment: Yes Patient verbally consented to billing insurance company: Yes Patient informed of any privacy concerns related to visit: Yes Minutes spent on Phone/Video with Pt.: 14 Assessment and Plan Assessment & Plan (1) Other specified hypothyroidism: Code(s): E03.8 - Other specified hypothyroidism (2) [place]son adverse reaction: Code(s): T43.595A - Adverse effect of other antipsychotics and neuroleptics, initial encounter Plan Patient is 38 year old female at her recent labs, her TSH level came back very high she is also on lithium , which can be the cause of this problem she has apt coming up with her prescriber in few days she will talk about this, may be she can be switched to a different medication mean while she is to continue 50 mcg of Levothyroxine and repeat labs in 6 wks US thyroid also ordered Orders: Orders US thyroid Today E03.8 - Other specified hypothyroidism TSH reflex Free T4 Today E03.8 - Other specified hypothyroidism Coding Level of Care Code Tele Est Pt Level 3 (75489) Diagnoses Other specified hypothyroidism E03.8 Cl[place]son adverse reaction T43.595A
== END 2024-02-14 09:16 | disposition home or self-care (01) ==
LOC: HO.HMGC 07:56
PROVIDERS: PCP Internal Medicine; Visit Provider Internal Medicine
DX: E03.8 Other specified hypothyroidism (principal); T43.595A Adverse effect of other antipsychotics and neuroleptics, initial encounter
CPT/HCPCS: 99213

== ENCOUNTER 2024-02-27 10:05 | Outpatient (REF) | payer OTHER, SELFPAY ==
--- NOTE | ~2024-02-27 | US_ITS ---
EXAMINATION: US THYROID CLINICAL INFORMATION: Other specified hypothyroidism. COMPARISON: None available. TECHNIQUE: Linear transducer grayscale and color Doppler examination with attention to the region of the thyroid. FINDINGS: SIZE: Measurements of the thyroid lobes and nodules are given in sagittal, anteroposterior and transverse dimensions respectively. Right Thyroid Lobe: 4.9 x 2.4 x 1.7 cm, volume 10.5 mL. Parenchyma: The gland echotexture is heterogeneous. Thyroid vascularity is increased. Left Thyroid Lobe: 4.7 x 2.2 x 1.8 cm, volume 9.8 mL. Parenchyma: The gland echotexture is heterogeneous. Thyroid vascularity is increased. Isthmus: 0.6 cm in maximum AP dimension. No focal thyroid nodule is seen. NODES: Left level 3 lymph node measuring 2.5 x 0.7 x 1 cm with abnormal cortical thickening and minimally lobulated contours. US/US thyroid IMPRESSION: Very significant hypervascularity of the thyroid parenchyma with heterogeneity, suspicious for autoimmune thyroiditis, correlate clinically. No discrete intraparenchymal thyroid nodules. Abnormal appearing left sided level 3 cervical lymph node. Recommend very short-term follow-up ultrasound and if indicated correlation with tissue sampling. Electronically signed by: Eve Garcia MD 03/11/2024 04:36 PM EDT
== END 2024-02-27 10:06 | disposition home or self-care (01) ==
LOC: HO.HMGCX 10:05
PROVIDERS: PCP Internal Medicine; Visit Provider Internal Medicine
DX: E03.8 Other specified hypothyroidism (principal)
CPT/HCPCS: 76536

== ENCOUNTER → 2024-03-13 08:22 | Outpatient (BNVA) | payer OTHER, MEDICAID, SELFPAY | PROVIDERS: PCP Internal Medicine; Visit Provider Internal Medicine ==

== ENCOUNTER 2024-04-07 13:47 | Outpatient (AMB) | payer OTHER, MEDICAID, SELFPAY ==
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
[2024-04-07 13:59] VITALS: BP 100/70; PULSE 96; BMI 23.0
== END 2024-04-07 15:00 | disposition home or self-care (01) ==
PROVIDERS: PCP Internal Medicine; Visit Provider Student in an Organized Health Care Education/Training Program
DX: E06.3 Autoimmune thyroiditis (principal); R59.1 Generalized enlarged lymph nodes; E83.52 Hypercalcemia
CPT/HCPCS: 99205

== ENCOUNTER → 2024-04-07 13:47 | Outpatient (BNVA) | payer OTHER, MEDICAID, SELFPAY | PROVIDERS: PCP Internal Medicine; Visit Provider Student in an Organized Health Care Education/Training Program | DX: E06.3 Autoimmune thyroiditis (principal); E83.52 Hypercalcemia; R59.1 Generalized enlarged lymph nodes; R93.89 Abnormal findings on diagnostic imaging of other specified body structures | CPT/HCPCS: 99202 ==

== ENCOUNTER 2024-04-09 13:00 | Outpatient (RCR) | payer OTHER, MEDICAID, SELFPAY ==
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
--- NOTE | 2024-04-17 13:14 | MHC.PT.DC ---
[facility] [place] Office [place] Office [place] Office [address] Asa Corona [address] [facility] [phone] F: [phone] F: [phone] F: [phone] F: [phone] Physical Therapy Discharge Report Diagnosis: paralytic gait Date of Surgery: n/a Date of Evaluation: 03/18/24 Date of Discharge: 04/17/24 Treatments to Date: 6 Cancellations to Date: 0 No Shows to Date: 3 Discharge Status: Visit Non-compliance Discharge Summary: Pt has failed to comply with [facility] [place] [place] attendance policy and no showed her last 3 scheduled appointments. Therefore to be d/c. Electronically signed by: Angela Blanton, PT, DPT, ATC Please sign and return to therapist. Thank you for your referral.
== END 2024-04-17 13:15 | disposition home or self-care (01) ==
LOC: HO.PTCHIC 13:00
PROVIDERS: PCP Internal Medicine; Visit Provider Internal Medicine
DX: R26.1 Paralytic gait (principal)
CPT/HCPCS: 97110; 97112; 97163

== ENCOUNTER 2024-04-25 11:30 | Outpatient (RCR) | payer OTHER, MEDICAID, SELFPAY ==
--- NOTE | 2024-03-12 08:56 | MHC.OT.EP ---
[address] [phone] Occupational Therapy Plan of Care Patient Name: Saurabh Biggs Date of Evaluation: 03/10/24 Diagnosis: CONTRACTURE, L HAND Pain Location: L DORSAL > VOLAR WRIST Pain Score: 0-3/10 Pain Scale Used: Numeric (0 - 10) Aggravating Factors: END RANGE STRETCHING Alleviating Factors: RESTING Assessment: MS BIGGS REPORTS WORSENING L HAND AND WRIST PAIN, WELL TIGHTNESS IN THE LAST TWO TO FIVE YEARS. SHE HAS A HISTORY OF CVA AND TBI IN 2005, WELL ATTENDANCE TO OUTPATIENT OT. SHE NO LONGER WEARS RESTING HAND SPLINTS, YET CONTINUES TO ENGAGE IN HER OWN PASSIVE STRETCHING. DURING OT EVALUATION, Pt WAS MOTIVATED TO DECREASE HER PAIN AND INCREASE HER FUNCTIONAL USE OF HER L HAND. Pt AND MOTHER EDUCATED ON RECOMMENDATIONS FOR RESTING ORTHOSIS AND SKIN/ NAIL MONITORING. A 63% LIMITATION IS REPORTED PER THE QUICK DASH ASSESSMENT. Pt MAY BENEFIT FROM REFERRAL TO AGENCY OPERATOR TO ADDRESS TONE IN L UE. WILL CONT TO SEE FOR SKILLED OT SERVICES TO ADDRESS PROM, SKIN INTEGRITY, ORTHOSIS NEEDS, Pt/ FAMILY EDUCATION AND ADL RETRAINING. Frequency and Duration: The patient will be seen 2X/WEEK FOR 4-6 WEEKS Short Term Goals: Pt/ CAREGIVER TO BE IND HEP Pt/ CAREGIVER TO YOSELIN/ DOFF ORTHOSIS IND'LY Pt/ CAREGIVER TO BE IND WITH MAINTAINING NAIL/ SKIN INTEGRITY Steel Engraver Goals: Pt/ CAREGIVER TO EXPLORE AE/AT FOR ADLs Pt TO EXPLORE AGENCY OPERATOR FOR POTENTIAL MUSCLE RELAXORS Pt TO GRASP WATER BOTTLE IN L HAND Treatment Plan: Therapeutic Exercise Therapeutic Activity Home Exercise Program Splinting Neuro Re-ed Patient Education Desensitization/Sensory Re-ed Edema Control ADL Training Ultrasound NMES Iontophoresis Paraffin Fluidotherapy MHP Cold Packs Joint Mobilization Soft Tissue Mobilization Kinesiotaping Other (see comments) Electronically Signed By: DANA PIERSON OTR/L Please Sign and return to therapist. Thank you once again for your referral.
--- NOTE | 2024-05-14 11:50 | MHC.OT.DC ---
[address] [phone] F: [phone] Occupational Therapy Discharge Note Patient Name: Saurabh Biggs Provider: Clara Qiu Diagnosis: CONTRACTURE, L HAND Date of Evaluation: 03/10/24 Date of Discharge: 05/14/24 Treatments to Date: 8 Cancellations to Date: 4 No Shows to Date: 3 Discharge Status: Visit Non-compliance Discharge Summary: Ms. Biggs has been seen in OT for (L) hand contracture, a static orthosis was fabricated. Patient and caregiver IND with doning orthosis. Patient appeared to be inconsistent with orthosis wear schedule and has not shown up to the last 3 appointments resulting in discharge from OT services at this time. Electronically Signed By: Yareli Barragan OT/s Reviewed/agree with student documentation: Yes Therapist: MARIA LUISA Cohen/Raji Please Sign and return to therapist, thank you for your referral.
== END 2024-05-14 11:50 | disposition home or self-care (01) ==
LOC: HO.OT 11:30
PROVIDERS: PCP Internal Medicine; Visit Provider Internal Medicine
DX: M24.542 Contracture, left hand (principal)
CPT/HCPCS: 29125; 97112; 97140; 97167; 97530

== ENCOUNTER 2024-04-29 15:57 | Inpatient (IN) | payer OTHER, SELFPAY ==
--- NOTE | 2024-04-29 16:21 | ED.PSYCH ---
HPI - Psych General Chief Complaint: Psychiatric Symptoms Stated Complaint: SI Time Seen by Provider: 04/29/24 16:34 Source: patient Mode of arrival: ambulatory Limitations: no limitations History of Present Illness ED Provider: Shannan Reis NP HPI Narrative: Patient is a 38-year-old female who presents emergency department for evaluation suicidal ideations with a plan to cut herself. She has been feeling increasingly depressed, crying, does not feel safe to be at home. She tells me that she is using a commode in her bedroom reds isn't walking to the bathroom because the bathroom is too close to the kitchen and she does not want to do anything. She is terrified all the time that people are going to or that she is going to . She has a lot of concern about her daughter's recent hospitalization for psychiatric issues. Typically she likes to stay the night and spend time at her mother's house but did not want to go there because seeing knives in the kitchen would be troublesome for her. She denies any drug or alcohol usage. She denies any HI or hallucinations. She reports that approximately 1 month ago she was taken off her lithium because it was affecting her thyroid, she would be placed on thyroid medication she is not sure the name of this. She states that she was given a prescription for another medication but she does not recall the name of it. Additionally she states that recently they were going to change her sertraline to a new medication. They were having issues with [employer] being sent to the pharmacy, apparently this was just sent today by her psychiatrist but she has yet to take it and does not know the name of this medication either. Related Data Home Medications ?Medication ?Instructions ?Recorded ?Confirmed aripiprazole 10 mg tablet 10 mg PO DAILY 04/07/24 04/29/24 aripiprazole 5 mg tablet 5 mg PO QPM 04/07/24 04/29/24 Previous Rx's ?Medication ?Instructions ?Recorded cholecalciferol (vitamin D3) 25 25 mcg PO DAILY 90 days #90 caps 07/29/23 mcg (1,000 unit) capsule (Vitamin D3) folic acid 1 mg tablet 1 mg PO DAILY 90 days #90 tabs 08/09/23 sertraline 100 mg tablet 100 mg PO BEDTIME #90 tabs 12/19/23 lamotrigine 100 mg tablet See Rx Instructions PO DAILY 30 08/12/24 days #135 tabs Left ASO brace #1 ea 02/27/24 levothyroxine 50 mcg tablet 50 mcg PO DAILY #30 tabs 04/07/24 Allergies Allergy/AdvReac Type Severity Reaction Status Date / Time potassium AdvReac Intermediate panic Verified 04/29/24 16:23 attacks Review of Systems Review of Systems: Yes all other systems are reviewed and are negative [facility] Past Medical History Attestation statement: The following information was validated with the patient. Source: old records reviewed Medical History Lymphadenopathy of head and neck Hypothyroid Cannabis use disorder, mild, abuse TBI (traumatic brain injury) CVA (cerebral vascular accident) Seizures Anxiety, generalized Surgical History History of brain shunt History of bilateral tubal ligation History of craniotomy Family History Family History Father No problems noted. Mother Diabetes HTN (hypertension) Heart disease Maternal Aunt Colon cancer Brother Diverticular disease Depression Anxiety Brother No problems noted. Sister No problems noted. Daughter Anxiety Depression ADHD Other Mental health disorder Substance use disorder Social History Social History Household Members: Spouse and Children Household Members Other:: , 13 yo daughter Housing: Apartment Do you presently have visiting nurse or other home services: Yes ([employer] [facility]) Unable to assess alcohol history related to: Unknown Alcohol intake: never Patient Tobacco Use Status: Never used Tobacco Smoked in Last 30 Days: No e-Cigarette/Vaping Use: Never Used Use of substances other than those prescribed or required for medical reasons: No Advance Directives: No Advance Directives Information Provided: No Do you have a plan to hurt others: No Plan service: No Current occupational status: unemployed Sexual orientation: Straight/Heterosexual Cognitive needs: No Hearing needs: No Vision needs: No Physical Exam Vital Signs: Vital Signs: Last Vital Signs Temp 97.8 F 04/29/24 22:35 Pulse 86 04/29/24 22:35 Resp 16 04/29/24 22:35 BP 121/87 04/29/24 22:35 Pulse Ox 97 04/29/24 22:35 O2 Del Method Room Air 04/29/24 22:35 BMI result Body Mass Index 23.6 Appearance: Alert.?Oriented to person, place and time. No acute distress.?Normal affect. Eyes: Pupils equal, round and reactive to light.? ENT: Pharynx normal.?? Neck: Normal inspection.? Neck supple.?? CVS: Heart sounds normal. Normal heart rate and rhythm.? Pulses normal.?? Respiratory: No respiratory distress.? Lung sounds clear to auscultation bilaterally?? Abdomen: Soft and non-tender. Normoactive bowel sounds. ? Skin: Skin warm and dry.? Normal skin color.? Extremities: No lower extremity edema.? No calf ttp? Neuro: Moves all extremities spontaneously. Sensation intact bilaterally. CN II-XII intact. No focal neuro deficits. Course Course Course Narrative: This is a rapid medical exam performed by Hunter Escobedo NP: Additional HPI, ROS, PE not included below will be deferred to primary provider. Patient is a 38-year-old female with history of CVA with left sided deficits and left sided visual impairment 19 years ago, TBI, shunt, seizures, anxiety, cannabis use disorder, hypothyroid presenting to the emergency department with complaint of suicidal ideation with plan to cut herself. Reports her daughter was recently hospitalized for psychiatric issues. Did not want to go to mother's house today because there are visible knives and it would trigger her. Did not want to be left alone. Had her mother stay with her because she felt she would hurt herself if left alone. Denies HI, AH, VH. Mother states she has never seen her this depressed, was crying nonstop. Patient is in a wheelchair at home, but is able to take a few steps if holding onto a chair, couch, etc. Taken off lithium around one month ago because it was affecting her thyroid, but this was not replaced with any other medications. Plan: medical clearance, then CARE team eval Medications Administered Generic Name Dose Route Start Last Admin Trade Name Freq PRN Reason Stop Dose Admin Sertraline HCl 100 mg 04/29/24 22:30 04/30/24 01:21 Sertraline Hcl 100 Mg Tablet PO 100 mg BEDTIME GURDEEP Administration Medical Decision Making Medical Decision Making MDM Narrative: Patient is a 38-year-old female with history of CVA with left sided deficits and left sided visual impairment 19 years ago, TBI, shunt, seizures, anxiety, cannabis use disorder, hypothyroid presenting to emergency department for evaluation of worsening depression, suicidal ideations plan though she has been avoiding to take any action on this, she does not feel safe to return home at this point. As per HPI there have been some recent medication changes; Based on her pharmacy records it appears as though aripiprazole was initiated in 02/2024 initially at 5 mg increased to 10 mg, additionally I see that a new prescription for fluoxetine 10 mg was sent to the pharmacy, likely this was replacement for sertraline as patient had mentioned. She offers no physical complaints and her physical examination is benign. Differential Diagnosis Differential Diagnoses: The differential diagnosis associated with the presentation includes (See narrative above and below for further detail) Admission/Observation Consideration of admission/observation: Escalation of care including admission/observation considered Patient is being observed in the Emergency Department for depression and anxiety. Observation time was started at 16:54 on 04/29/2024.?The patient is currently stable and non-toxic appearing. Observation is being initiated in the Emergency Department to allow time to help differentiate if the patient's depression and anxiety is due to Substance Induced Mood Disorder and Anxiety versus Major Depressive Disorder, Bipolar Tyra, Bipolar Depression, and Schizophrenia. The patient will receive frequent psychiatric assessments from the provider as well as from nursing staff. The patient will also be monitored for the need of PRN agitation medications such as Haldol, Ativan, and Benadryl. Consult Healthcare Provider Management of the patient was discussed with: Behavioral Health Provider Evaluated by care team, deemed inpatient level of care Lab Data MDM Lab Attestation statement: I reviewed the patient's lab results. CBC without acute abnormality, no electrolyte derangement, no ABAD, LFTs unremarkable, TSH is high at 4.67 but normal free T4, TSH significantly downtrending when compared to prior. Urinalysis without evidence of infection. HCG is negative. JOVANNI and alcohol negative. 04/29/24 17:03 04/29/24 17:03 Labs: Lab Results 04/29/24 04/29/24 Range/Units 17:03 17:14 WBC 5.6 (4.8-10.8) X10*3/uL RBC 4.21 (4.20-5.50) X10*6/uL Hgb 12.4 (12.0-16.0) g/dl Hct 38.6 (37.0-47.0) % MCV 91.7 (80.0-98.0) fL MCH 29.5 (27.0-33.0) pg MCHC 32.1 (31.0-35.0) g/dl RDW 13.2 (11.0-16.0) % Plt Count 391 (160-400) X10*3/uL MPV 8.5 L (9.4-12.3) fL Immature Gran % (Auto) 0.2 (0.0-0.4) % Neut % (Auto) 57.6 (45-73) % Lymph % (Auto) 32.2 (20-40) % [place] % (Auto) 6.1 (2-11) % Eos % (Auto) 3.0 (0-4) % Baso % (Auto) 0.9 (0-2) % Lymph # (Auto) 1.8 (1.2-4.9) X10*3/uL [place] # (Auto) 0.3 (0.1-1.2) X10*3/uL Eos # (Auto) 0.2 (0.0-0.4) X10*3/uL Baso # (Auto) 0.1 (0.0-0.2) X10*3/uL Abs Immat Gran (auto) 0.01 (0.00-0.03) X10*3/uL Absolute Neuts (auto) 3.2 (2.0-8.3) x10*3/uL Absolute Nucleated RBC 0.000 (0.0-0.012) X10*3/uL Nucleated RBC % (auto) 0.0 (0.0-0.2) /100WBC Sodium 140 (135-145) mmol/L Potassium 4.0 (3.3-5.1) mmol/L Chloride 104 (96-108) mmol/L Carbon Dioxide 27 (22-29) mmol/L Anion Gap 13 (12-20) BUN 12 (9-16) mg/dL Creatinine 0.82 (0.5-1.4) mg/dL Estim Creat Clear Calc 98.1 Estimated GFR > 60 Random Glucose 90 (60-115) mg/dL Calcium 10.4 H (8.4-10.2) mg/dL Total Bilirubin 0.4 (0.0-1.0) mg/dL AST 14 (5-31) U/L ALT 16 (0-31) U/L Alkaline Phosphatase 82 (39-117) U/L Total Protein 8.7 H (6.5-8.0) g/dL Albumin 4.6 (3.5-5.0) g/dL TSH 4.67 H (0.32-4.0) uIU/mL Free T4 1.18 (0.71-1.85) ng/dL Urine Color Yellow Urine Appearance Clear Urine pH 5.5 (5.0-9.0) Ur Specific [place] 1.015 (1.005-1.025) Urine Protein Negative (Neg-Trace) mg/dL Urine Glucose (UA) Negative (Negative) mg/dL Urine Ketones Negative (Negative) mg/dL Urine Blood Negative (Negative) Urine Nitrite Negative (Negative) Ur Leukocyte Esterase Small (1+) H (Negative) Urine RBC 0-2 (0-2) /HPF Urine WBC 6-10 H (0-5) /HPF Ur Squamous Epith Cells 6-10 (0-2) /HPF Urine Bacteria Trace (None Seen) Hyaline Casts 0-2 (0-2) /LPF Urine Test NEGATIVE (NEGATIVE) Urine Opiates Screen Not Detected (Not Detect) Ur Buprenorphine Scrn Not Detected (Not Detect) ng/mL Ur Oxycodone Screen Not Detected (Not Detect) ng/mL Urine Methadone Screen Not Detected (Not Detect) ng/mL Urine Fentanyl Screen Not Detected (Not Detect) Ur Barbiturates Screen Not Detected (Not Detect) Ur Phencyclidine Scrn Not Detected (Not Detect) Ur Amphetamines Screen Not Detected (Not Detect) U Benzodiazepines Scrn Not Detected (Not Detect) [place] < 0.10 L (0.60-1.20) mmol/L Urine Cocaine Screen Not Detected (Not Detect) U Marijuana (THC) Screen Not Detected (Not Detect) Ethyl Alcohol 10 mg/dL Independent Historian Clinical information obtained from an independent historian. History obtained from or confirmed by: Parent External Record Review External record reviewed: Outpatient record Chronic Conditions Patient?s care impacted by: Other (See narrative above) Discharge Plan Discharge Clinical Impression: Depression, Suicidal ideation Patient Disposition: Still a Patient Prescriptions: No Action cholecalciferol (vitamin D3) [Vitamin D3] 25 mcg (1,000 unit) capsule 25 mcg PO DAILY 90 Days Qty: 90 3RF folic acid 1 mg tablet 1 mg PO DAILY 90 Days Qty: 90 3RF lamotrigine 100 mg tablet See Rx Instructions PO DAILY 30 Days Qty: 135 3RF Rx Instructions: Take 250mg in am and 200mg at bedtime orally daily; (DME) Left ASO brace See Rx Instructions .Route .MEDSUPPLY Qty: 1 0RF Rx Instructions: As directed sertraline 100 mg tablet 100 mg PO BEDTIME Qty: 90 1RF aripiprazole 10 mg tablet 10 mg PO DAILY aripiprazole 5 mg tablet 5 mg PO QPM levothyroxine 50 mcg tablet 50 mcg PO DAILY Qty: 30 6RF Print Language: Slovenian
[2024-04-29 16:22] VITALS: BP 126/84; PULSE 90; RESP 18; TEMP 36.8; O2SAT 98; BMI 23.6
[2024-04-29 17:09] LABS: MANUAL DIFF FLAG NO
[2024-04-29 17:11] LABS: Basophils Absolute Auto 0.1 X10*3/uL (0.0-0.2); Basophils Percent Auto 0.9 % (0-2); Eosinophils Absolute Auto 0.2 X10*3/uL (0.0-0.4); Hematocrit 38.6 % (37.0-47.0); Hemoglobin 12.4 g/dl (12.0-16.0); Imm Gran Abs Auto 0.01 X10*3/uL (0.00-0.03); Imm Gran Pct Auto 0.2 % (0.0-0.4); Lymphocytes Absolute Auto 1.8 X10*3/uL (1.2-4.9); Lymphocytes Percent Auto 32.2 % (20-40); Mean Corpuscular HGB Conc 32.1 g/dl (31.0-35.0); Mean Corpuscular Hemoglobin 29.5 pg (27.0-33.0); Mean Corpuscular Volume 91.7 fL (80.0-98.0); Mean Platelet Volume 8.5 fL (9.4-12.3); Monocytes Absolute Auto 0.3 X10*3/uL (0.1-1.2); Monocytes Percent Auto 6.1 % (2-11); Neutrophils Absolute Auto 3.2 x10*3/uL (2.0-8.3); Neutrophils Percent Auto 57.6 % (45-73); Platelet Count 391 X10*3/uL (160-400); Red Blood Count 4.21 X10*6/uL (4.20-5.50); Red Cell Distribution Width 13.2 % (11.0-16.0); White Blood Count 5.6 X10*3/uL (4.8-10.8)
[2024-04-29 17:25] LABS: Lithium < 0.10 mmol/L (0.60-1.20)
[2024-04-29 17:28] LABS: Alanine Aminotransferase 16 U/L (0-31); Albumin Level 4.6 g/dL (3.5-5.0); Alkaline Phosphatase 82 U/L (39-117); Anion Gap 13 (12-20); Aspartate Amino Transferase 14 U/L (5-31); Bilirubin Total 0.4 mg/dL (0.0-1.0); Blood Urea Nitrogen 12 mg/dL (9-16); Calcium 10.4 mg/dL (8.4-10.2); Carbon Dioxide 27 mmol/L (22-29); Chloride 104 mmol/L (96-108); Creatinine Clr Calc Pharmacy 98.1; Estimated Glomerular Filt Rate > 60; Ethanol 10 mg/dL; Glucose Random 90 mg/dL (60-115); Sodium 140 mmol/L (135-145); Total Protein 8.7 g/dL (6.5-8.0)
[2024-04-29 17:30] LABS: Appearance Urine Clear; Color Urine Yellow; Glucose Urine UA Negative (Negative); Leukocyte Esterase Urine Small (1+) (Negative); Nitrite Urine Negative (Negative); PH 5.5 (5.0-9.0); Specific Gravity - Urine 1.015 (1.005-1.025); UMIC TRIGGER UACC YES; Urine Blood Negative (Negative); Urine Ketones Negative (Negative); Urine Protein Negative (Neg-Trace)
[2024-04-29 17:31] LABS: UPreg QC Valid YES; Urine Pregnancy NEGATIVE (NEGATIVE)
[2024-04-29 17:39] LABS: Amphetamine Screen Urine Not Detected (Not Detect); Barbiturates, Urine Not Detected (Not Detect); Benzodiazepines Screen Urine Not Detected (Not Detect); Buprenorphine Scr Not Detected (Not Detect); Cannabinoid Screen Urine Not Detected (Not Detect); Cocaine Screen Urine Not Detected (Not Detect); Fentanyl, urine Not Detected (Not Detect); Methadone Screen, Urine Not Detected (Not Detect); Opiate Screen Urine Not Detected (Not Detect); Oxycodone Screen Urine Not Detected (Not Detect); Phencyclidine Screen Urine Not Detected (Not Detect)
[2024-04-29 17:44] LABS: Bacteria Urine Trace (None Seen); Hyaline Casts Urine 0-2 /LPF (0-2); RBC Urine 0-2 /HPF (0-2); UACC Culture Trigger YES
[2024-04-29 17:49] LABS: TSH reflex Free T4 4.67 uIU/mL (0.32-4.0)
[2024-04-29 18:26] LABS: Free T4 (Free Thyroxine) 1.18 ng/dL (0.71-1.85)
[2024-04-29 18:46] VITALS: BP 118/64; PULSE 92; RESP 18; TEMP 36.7; O2SAT 99
[2024-04-29 19:17] VITALS: BP 119/73; PULSE 84; RESP 14; TEMP 36.3; O2SAT 97
[2024-04-29 22:35] VITALS: BP 121/87; PULSE 86; RESP 16; TEMP 36.6; O2SAT 97
--- NOTE | 2024-04-30 | ECG_ITS ---
Test Reason : PSYCHOTIC USE Blood Pressure : / mmHG Vent. Rate : 104 BPM Atrial Rate : 104 BPM P-R Int : 124 ms QRS Dur : 074 ms QT Int : 348 ms P-R-T Axes : 057 021 064 degrees QTc Int : 457 ms Sinus tachycardia Otherwise normal ECG When compared with ECG of 19-JAN-2024 02:32, Nonspecific T wave abnormality no longer evident in Anterior leads QT has shortened Referred By: Generic ED Physician Electronically Signed By:Ash Lee
[2024-04-30] MEDS: Sertraline HCL 100 MG TABLET PO ×2 (01:21→21:19)
[2024-04-30] MEDS: Acetaminophen 325 MG TABLET 975 MG PO (08:03)
[2024-04-30] MEDS: Folic Acid 1 MG TABLET PO (08:11)
[2024-04-30] MEDS: ARIPiprazole 10 MG TABLET PO (08:11)
[2024-04-30] MEDS: lamoTRIgine 100 MG TABLET 250 MG PO (08:12)
[2024-04-30] MEDS: Levothyroxine Sodium 50 MCG TABLET PO (08:12)
[2024-04-30] MEDS: Cholecalciferol (Vitamin D3) 25 MCG TABLET PO (08:12)
--- NOTE | 2024-04-30 09:00 | MHC.EDTECH ---
helped patient go to the bathroom , while in the bathroom with patient she stated i still do not think i should go home .
[2024-04-30 10:50] VITALS: BP 128/78; PULSE 117; RESP 14; TEMP 36.7; O2SAT 98
[2024-04-30 15:20] VITALS: BP 123/82; PULSE 101; RESP 16; TEMP 36.8; O2SAT 98
--- NOTE | 2024-04-30 15:26 | PC.NURSE ---
Spoke with ALLY shepherd M5 RN report given; all questions answered to satisfaction.
--- NOTE | 2024-04-30 17:14 | PC.ADMIT ---
Pt admitted from [facility] ED on a CV. Pt self presented with SI. Pt is on 5 minute checks d/t being in a wheelchair. Pt does not have use of left arm, and wears a brace on left ankle for support. Pt is able to move about the unit in wheelchair and transfer independently if she is wearing ankle brace and sneaker (laces have been removed). Pt reports being off her lithium d/t thyroid complications and being switched to abilify. Stating this has led to an increase in suicidal thoughts and anxiety. Recent stressors include pt's daughter being in a psych hospital for the last two months and continues to make homicidal statements towards her mother. Pt states she has been trying to get her daughter help for a long time, and this has been a source of disagreement between pt and . Pt last on M5 in 2021, no history of smoking or drug use. Flu shot declined. Pt cooperative with admission assessment, tearful and anxious.
[2024-04-30 20:00] VITALS: BP 136/98; PULSE 98; TEMP 36.6; O2SAT 97
[2024-04-30] MEDS: lamoTRIgine 100 MG TABLET 200 MG PO (21:19)
[2024-05-01 08:00] VITALS: BP 131/85; PULSE 106; RESP 18; TEMP 36.8; O2SAT 96
[2024-05-01] MEDS: Acetaminophen 325 MG TABLET 650 MG PO ×2 (09:07→21:13)
[2024-05-01] MEDS: lamoTRIgine 100 MG TABLET 250 MG PO (09:08)
[2024-05-01] MEDS: Folic Acid 1 MG TABLET PO (09:09)
[2024-05-01] MEDS: ARIPiprazole 10 MG TABLET PO (09:09)
[2024-05-01] MEDS: Cholecalciferol (Vitamin D3) 25 MCG TABLET PO (09:09)
[2024-05-01] MEDS: Levothyroxine Sodium 50 MCG TABLET PO (09:09)
[2024-05-01 10:21] LABS: Cholesterol 244 mg/dL (<200); HDL Cholesterol 46 mg/dL (>40); LDL Cholesterol Calculated 179 mg/dL (<100); Magnesium 2.2 mg/dL (1.6-2.6); Triglycerides 96 mg/dL (<150)
[2024-05-01 10:36] LABS: Free T4 (Free Thyroxine) 1.23 ng/dL (0.71-1.85); Thyroid Stimulating Hormone 5.87 uIU/mL (0.32-4.0)
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
[2024-05-01 10:51] LABS: Folate 16.5 ng/mL (> or = 4.0); Vitamin B12 585 pg/mL (200-900)
[2024-05-01] MEDS: Ibuprofen 800 MG TABLET PO (12:02)
[2024-05-01 14:14] LABS: Estimated Average Glucose 97 mg/dL; Hemoglobin A1C 100.8729 umol/L; Total Hemoglobin (HGBA1C) 3289.7196 umol/L
[2024-05-01 20:00] VITALS: BP 137/90; PULSE 96; O2SAT 97
[2024-05-01] MEDS: hydrOXYzine HCL 25 MG TABLET PO (21:12)
[2024-05-01] MEDS: lamoTRIgine 100 MG TABLET 200 MG PO (21:12)
[2024-05-01] MEDS: Sertraline HCL 100 MG TABLET PO (21:12)
[2024-05-02 08:00] VITALS: BP 136/71; PULSE 94; RESP 16; TEMP 36.4; O2SAT 97
[2024-05-02] MEDS: Levothyroxine Sodium 50 MCG TABLET PO (09:45)
[2024-05-02] MEDS: ARIPiprazole 10 MG TABLET PO (09:45)
[2024-05-02] MEDS: lamoTRIgine 100 MG TABLET 250 MG PO (09:46)
[2024-05-02] MEDS: FLUoxetine HCl 10 MG CAPSULE PO (09:46)
[2024-05-02] MEDS: Cholecalciferol (Vitamin D3) 25 MCG TABLET PO (09:46)
[2024-05-02] MEDS: Folic Acid 1 MG TABLET PO (09:46)
--- NOTE | 2024-05-02 09:48 | HO.PSYCHPN ---
Subjective Subjective Date of Service: 05/02/24 Reason For Visit: mood disorder Subjective Notes: Conditional Voluntary Healthcare Proxy: No Guardianship: No Medical Problems Affecting Mental Status: No Interim History: Tolerating Prozac. By history, pt took Sertraline at [facility]. Today, with first dose of Prozac pt is feeling sedate. As a result we will change dosing to HS. Slept 8 hours last night, reports some anxiety with milieu and some sx peers are demonstrating which we discussed and education was provided. Talked of her daughter. Pt's mom will visit daughter today at [facility] which is relieving for pt. She spoke of the longer term plan for her daughter and her hopes and worries for her. We discussed some of the benefits of having daughter living in a therapeutic environment allowing she and her to have more parenting and support time for her and decreased conflict as she had described at home. Medication Compliance: Yes Side effects from medications: Yes (reports today some sedation from the initial Prozac dosage) Attending Groups: Yes Review of Systems Acute medical concerns: No Medical Review of Systems: unchanged Review of Systems Review of Systems Yes all other systems are reviewed and are negative Mental Status Exam Mental Status Exam Patient Appearance: Fatigued Patient Orientation: Person, Place, Time and Situation Level of Consciousness: Alert Patient Behavior: Talkative and Good Eye Contact Mood Description: Depressed Affect Description: Flat Patient Cognition Impaired: No Ability to Follow Directions: Good Speech Pattern: Spontaneous Speech Memory Description: Episodic Impaired Hallucinations: None Delusions: Not Present Perceptual Disturbances: Depersonalization and Derealization Thought Process: Rumination Thought Content: positive for Circumstantial, positive for Perseveration and positive for Suicidal Ideation Depressive Symptoms: Thoughts of /Suicide Judgement: Fair Diagnostics Vital Signs (24Hr): Vital Signs - 24 hr 05/01/24 20:00 Pulse Rate 96 Blood Pressure 137/90 H Pulse Oximetry 97 Oxygen Delivery Method Room Air BMI result Body Mass Index 23.6 Labs 04/29/24 17:03 04/29/24 17:03 Labs: Laboratory Results - last 48 hr 05/01/24 09:29 Estimat Average Glucose 97 Hemoglobin A1c % 5.0 Magnesium 2.2 Triglycerides 96 Cholesterol 244 H LDL Cholesterol, Calc 179 H HDL Cholesterol 46 Vitamin B12 585 Folate 16.5 TSH 5.87 H Free T4 1.23 Medications Medications Current Medications Acetaminophen (Acetaminophen 325 Mg Tablet) 650 mg PO Q6H PRN PRN Reason: Headache/Pain Mild Scale (1-3) Last Admin: 05/01/24 21:13 Dose: 650 mg Al Hydroxide/Mg Hydroxide (Magnesium Hydrox/Alum Hydrox 30 Ml Oral.Susp) 30 ml PO Q6H PRN PRN Reason: Heartburn/Nausea Aripiprazole (Aripiprazole 10 Mg Tablet) 10 mg PO DAILY [facility] Last Admin: 05/02/24 09:45 Dose: 10 mg Fluoxetine HCl (Fluoxetine Hcl 10 Mg Capsule) 10 mg PO DAILY [facility] Last Admin: 05/02/24 09:46 Dose: 10 mg Folic Acid (Folic Acid 1 Mg Tablet) 1 mg PO DAILY [facility] Last Admin: 05/02/24 09:46 Dose: 1 mg Hydroxyzine HCl (Hydroxyzine Hcl 25 Mg Tablet) 25 mg PO Q6H PRN PRN Reason: Anxiety Last Admin: 05/01/24 21:12 Dose: 25 mg Ibuprofen (Ibuprofen 800 Mg Tablet) 800 mg PO Q8H PRN PRN Reason: Pain, Mild (Pain Scale 1-3) Last Admin: 05/01/24 12:02 Dose: 800 mg Lamotrigine (Lamotrigine 100 Mg Tablet) 250 mg PO DAILY [facility] Last Admin: 05/02/24 09:46 Dose: 250 mg Lamotrigine (Lamotrigine 100 Mg Tablet) 200 mg PO BEDTIME [facility] Last Admin: 05/01/24 21:12 Dose: 200 mg Levothyroxine Sodium (Levothyroxine Sodium 50 Mcg Tablet) 50 mcg PO DAILY [facility] Last Admin: 05/02/24 09:45 Dose: 50 mcg Magnesium Hydroxide (Milk Of Magnesia 30 Ml Oral.Susp) 30 ml PO DAILY PRN PRN Reason: Constipation Nicotine (Nicotine 21 Mg Patch.Td24) 21 mg TRANSDERMA DAILY PRN PRN Reason: Nicotine Cravings Nicotine Polacrilex (Nicotine Polacrilex 2 Mg Gum) 4 mg BUCCAL Q2H PRN PRN Reason: Nicotine Cravings Sertraline HCl (Sertraline Hcl 100 Mg Tablet) 100 mg PO BEDTIME [facility] Last Admin: 05/01/24 21:12 Dose: 100 mg Trazodone HCl (Trazodone Hcl 50 Mg Tablet) 50 mg PO BEDTIME MRX1 PRN PRN Reason: Insomnia Vitamin D (Cholecalciferol (Vitamin D3) 25 Mcg Tablet) 25 mcg PO DAILY [facility] Last Admin: 05/02/24 09:46 Dose: 25 mcg Allergies Allergies Allergy/AdvReac Type Severity Reaction Status Date / Time potassium AdvReac Intermediate panic Verified 04/29/24 16:23 attacks Assessment & Plan Assessment & Plan (1) Major depressive disorder, recurrent severe without psychotic features: Status: Acute Code(s): F33.2 - Major depressive disorder, recurrent severe without psychotic features (2) Suicidal ideation: Status: Acute Code(s): R45.851 - Suicidal ideations Plan Recurrent Major Depression with SI. Plan: Admit, CV, 5 minute checks with wheelchair. Encourage full milieu Medication evaluation Collateral contacts with providers and family as pt will allow. Aftercare planning 05/02/24: Change timing of Prozac to bedtime, beginning 05/03/24. Reason for continued inpatient stay Substantial Risk for: rapid decompensation Time Spent With Patient Time: Total time managing care of this patient today ____ minutes.
[2024-05-02 20:00] VITALS: BP 110/73; PULSE 90; RESP 16; TEMP 36.3; O2SAT 98
[2024-05-02] MEDS: lamoTRIgine 100 MG TABLET 200 MG PO (20:34)
[2024-05-02] MEDS: Sertraline HCL 100 MG TABLET PO (20:34)
[2024-05-03 08:07] VITALS: BP 116/66; PULSE 85; RESP 18; TEMP 36.7; O2SAT 98
[2024-05-03] MEDS: Levothyroxine Sodium 50 MCG TABLET PO (08:33)
[2024-05-03] MEDS: Cholecalciferol (Vitamin D3) 25 MCG TABLET PO (08:33)
[2024-05-03] MEDS: ARIPiprazole 10 MG TABLET PO (08:33)
[2024-05-03] MEDS: lamoTRIgine 100 MG TABLET 250 MG PO (08:33)
[2024-05-03] MEDS: Folic Acid 1 MG TABLET PO (08:33)
--- NOTE | 2024-05-03 09:57 | HO.PSYCHPN ---
Subjective Subjective Date of Service: 05/03/24 Reason For Visit: mood disorder Subjective Notes: Conditional Voluntary Healthcare Proxy: No Guardianship: No Medical Problems Affecting Mental Status: No Interim History: Patient was seen and discussed in rounds today. Records and plans were reviewed. She continues to endorse depression. She is compliant with medication and tolerating them. She does have some thought blocking reported. Eating and sleeping adequately. No SI. No changes were made today Medication Compliance: Yes Side effects from medications: Yes (reports today some sedation from the initial Prozac dosage) Attending Groups: Yes Review of Systems Acute medical concerns: No Medical Review of Systems: unchanged Review of Systems Review of Systems Constipation Yes all other systems are reviewed and are negative Mental Status Exam Mental Status Exam Narrative: In today's visit she is alert, oriented and pleasant. Normal speech. Little eye contact. Affect is appropriate and constricted. No acute signs of psychosis. Thought processes are slowed. No active SI but has suicidal thoughts and thoughts of . Judgment is mostly intact. Diagnostics Vital Signs (24Hr): Vital Signs - 24 hr 05/02/24 20:00 05/03/24 08:07 Temperature 97.3 F 98.1 F Pulse Rate 90 85 Respiratory Rate 16 18 Blood Pressure 110/73 116/66 Pulse Oximetry 98 98 Oxygen Delivery Method Room Air Room Air BMI result Body Mass Index 23.6 Labs 04/29/24 17:03 04/29/24 17:03 Labs: Laboratory Results - last 48 hr 05/01/24 09:29 Estimat Average Glucose 97 Hemoglobin A1c % 5.0 Magnesium 2.2 Triglycerides 96 Cholesterol 244 H LDL Cholesterol, Calc 179 H HDL Cholesterol 46 Vitamin B12 585 Folate 16.5 TSH 5.87 H Free T4 1.23 Medications Medications Current Medications Acetaminophen (Acetaminophen 325 Mg Tablet) 650 mg PO Q6H PRN PRN Reason: Headache/Pain Mild Scale (1-3) Last Admin: 05/01/24 21:13 Dose: 650 mg Al Hydroxide/Mg Hydroxide (Magnesium Hydrox/Alum Hydrox 30 Ml Oral.Susp) 30 ml PO Q6H PRN PRN Reason: Heartburn/Nausea Aripiprazole (Aripiprazole 10 Mg Tablet) 10 mg PO DAILY [facility] Last Admin: 05/03/24 08:33 Dose: 10 mg Fluoxetine HCl (Fluoxetine Hcl 10 Mg Capsule) 10 mg PO BEDTIME [facility] Folic Acid (Folic Acid 1 Mg Tablet) 1 mg PO DAILY [facility] Last Admin: 05/03/24 08:33 Dose: 1 mg Hydroxyzine HCl (Hydroxyzine Hcl 25 Mg Tablet) 25 mg PO Q6H PRN PRN Reason: Anxiety Last Admin: 05/01/24 21:12 Dose: 25 mg Ibuprofen (Ibuprofen 800 Mg Tablet) 800 mg PO Q8H PRN PRN Reason: Pain, Mild (Pain Scale 1-3) Last Admin: 05/01/24 12:02 Dose: 800 mg Lamotrigine (Lamotrigine 100 Mg Tablet) 250 mg PO DAILY [facility] Last Admin: 05/03/24 08:33 Dose: 250 mg Lamotrigine (Lamotrigine 100 Mg Tablet) 200 mg PO BEDTIME [facility] Last Admin: 05/02/24 20:34 Dose: 200 mg Levothyroxine Sodium (Levothyroxine Sodium 50 Mcg Tablet) 50 mcg PO DAILY [facility] Last Admin: 05/03/24 08:33 Dose: 50 mcg Magnesium Hydroxide (Milk Of Magnesia 30 Ml Oral.Susp) 30 ml PO DAILY PRN PRN Reason: Constipation Nicotine (Nicotine 21 Mg Patch.Td24) 21 mg TRANSDERMA DAILY PRN PRN Reason: Nicotine Cravings Nicotine Polacrilex (Nicotine Polacrilex 2 Mg Gum) 4 mg BUCCAL Q2H PRN PRN Reason: Nicotine Cravings Sertraline HCl (Sertraline Hcl 100 Mg Tablet) 100 mg PO BEDTIME [facility] Last Admin: 05/02/24 20:34 Dose: 100 mg Trazodone HCl (Trazodone Hcl 50 Mg Tablet) 50 mg PO BEDTIME MRX1 PRN PRN Reason: Insomnia Vitamin D (Cholecalciferol (Vitamin D3) 25 Mcg Tablet) 25 mcg PO DAILY [facility] Last Admin: 05/03/24 08:33 Dose: 25 mcg Allergies Allergies Allergy/AdvReac Type Severity Reaction Status Date / Time potassium AdvReac Intermediate panic Verified 04/29/24 16:23 attacks Assessment & Plan Assessment & Plan (1) Major depressive disorder, recurrent severe without psychotic features: Status: Acute Code(s): F33.2 - Major depressive disorder, recurrent severe without psychotic features (2) Suicidal ideation: Status: Acute Code(s): R45.851 - Suicidal ideations Plan Recurrent Major Depression with SI. Plan: Admit, CV, 5 minute checks with wheelchair. Encourage full milieu Medication evaluation Collateral contacts with providers and family as pt will allow. Aftercare planning 05/02/24: Change timing of Prozac to bedtime, beginning 05/03/24. 05/03: Continue current regimen and plans for stabilization and medication management Reason for continued inpatient stay Substantial Risk for: med/psych decompensation Time Spent With Patient Time: Total time managing care of this patient today ____ minutes.
[2024-05-03] MEDS: Docusate Sodium 100 MG CAPSULE PO ×2 (11:54→20:50)
[2024-05-03 19:38] VITALS: BP 135/78; PULSE 90; TEMP 36.6; O2SAT 97
[2024-05-03] MEDS: lamoTRIgine 100 MG TABLET 200 MG PO (20:50)
[2024-05-03] MEDS: hydrOXYzine HCL 25 MG TABLET PO (20:51)
[2024-05-03] MEDS: Sertraline HCL 100 MG TABLET PO (20:51)
[2024-05-03] MEDS: FLUoxetine HCl 10 MG CAPSULE PO (20:52)
[2024-05-04] MEDS: Levothyroxine Sodium 50 MCG TABLET PO (06:57)
[2024-05-04 08:25] VITALS: BP 126/58; PULSE 89; RESP 18; TEMP 36.4; O2SAT 98
[2024-05-04] MEDS: Folic Acid 1 MG TABLET PO (08:46)
[2024-05-04] MEDS: lamoTRIgine 100 MG TABLET 250 MG PO (08:46)
[2024-05-04] MEDS: Cholecalciferol (Vitamin D3) 25 MCG TABLET PO (08:46)
[2024-05-04] MEDS: ARIPiprazole 10 MG TABLET PO (08:46)
--- NOTE | 2024-05-04 09:48 | HO.PSYCHPN ---
Subjective Subjective Date of Service: 05/04/24 Reason For Visit: mood disorder Subjective Notes: Conditional Voluntary Healthcare Proxy: No Guardianship: No Medical Problems Affecting Mental Status: No Interim History: Patient was seen and discussed in rounds today. Records and plans were reviewed. She has been pleasant, attending groups. Some episodes of tearfulness. No active SI. No complaints or side effects. Eating and sleeping adequately. No changes were made today Medication Compliance: Yes Side effects from medications: Yes (reports today some sedation from the initial Prozac dosage) Attending Groups: Yes Review of Systems Acute medical concerns: No Medical Review of Systems: unchanged Review of Systems Review of Systems Yes all other systems are reviewed and are negative Mental Status Exam Mental Status Exam Narrative: In today's visit she is alert, oriented and pleasant. Normal speech. Little eye contact. Affect is appropriate and constricted. No acute signs of psychosis. Thought processes are slowed. Able to move all limbs. No abnormalities of gait No active SI but has suicidal thoughts and thoughts of . Judgment is mostly intact. Diagnostics Vital Signs (24Hr): Vital Signs - 24 hr 05/03/24 19:38 05/04/24 08:25 Temperature 97.9 F 97.5 F Pulse Rate 90 89 Respiratory Rate 18 Blood Pressure 135/78 126/58 L Pulse Oximetry 97 98 Oxygen Delivery Method Room Air Room Air BMI result Body Mass Index 23.6 Labs 04/29/24 17:03 04/29/24 17:03 Medications Medications Current Medications Acetaminophen (Acetaminophen 325 Mg Tablet) 650 mg PO Q6H PRN PRN Reason: Headache/Pain Mild Scale (1-3) Last Admin: 05/01/24 21:13 Dose: 650 mg Al Hydroxide/Mg Hydroxide (Magnesium Hydrox/Alum Hydrox 30 Ml Oral.Susp) 30 ml PO Q6H PRN PRN Reason: Heartburn/Nausea Aripiprazole (Aripiprazole 10 Mg Tablet) 10 mg PO DAILY [facility] Last Admin: 05/04/24 08:46 Dose: 10 mg Docusate Sodium (Docusate Sodium 100 Mg Capsule) 100 mg PO BEDTIME [facility] Last Admin: 05/03/24 20:50 Dose: 100 mg Fluoxetine HCl (Fluoxetine Hcl 10 Mg Capsule) 10 mg PO BEDTIME [facility] Last Admin: 05/03/24 20:52 Dose: 10 mg Folic Acid (Folic Acid 1 Mg Tablet) 1 mg PO DAILY [facility] Last Admin: 05/04/24 08:46 Dose: 1 mg Hydroxyzine HCl (Hydroxyzine Hcl 25 Mg Tablet) 25 mg PO Q6H PRN PRN Reason: Anxiety Last Admin: 05/03/24 20:51 Dose: 25 mg Ibuprofen (Ibuprofen 800 Mg Tablet) 800 mg PO Q8H PRN PRN Reason: Pain, Mild (Pain Scale 1-3) Last Admin: 05/01/24 12:02 Dose: 800 mg Lamotrigine (Lamotrigine 100 Mg Tablet) 250 mg PO DAILY [facility] Last Admin: 05/04/24 08:46 Dose: 250 mg Lamotrigine (Lamotrigine 100 Mg Tablet) 200 mg PO BEDTIME [facility] Last Admin: 05/03/24 20:50 Dose: 200 mg Levothyroxine Sodium (Levothyroxine Sodium 50 Mcg Tablet) 50 mcg PO DAILY [facility] Last Admin: 05/04/24 06:57 Dose: 50 mcg Magnesium Hydroxide (Milk Of Magnesia 30 Ml Oral.Susp) 30 ml PO DAILY PRN PRN Reason: Constipation Nicotine (Nicotine 21 Mg Patch.Td24) 21 mg TRANSDERMA DAILY PRN PRN Reason: Nicotine Cravings Nicotine Polacrilex (Nicotine Polacrilex 2 Mg Gum) 4 mg BUCCAL Q2H PRN PRN Reason: Nicotine Cravings Sertraline HCl (Sertraline Hcl 100 Mg Tablet) 100 mg PO BEDTIME [facility] Last Admin: 05/03/24 20:51 Dose: 100 mg Trazodone HCl (Trazodone Hcl 50 Mg Tablet) 50 mg PO BEDTIME MRX1 PRN PRN Reason: Insomnia Vitamin D (Cholecalciferol (Vitamin D3) 25 Mcg Tablet) 25 mcg PO DAILY [facility] Last Admin: 05/04/24 08:46 Dose: 25 mcg Allergies Allergies Allergy/AdvReac Type Severity Reaction Status Date / Time potassium AdvReac Intermediate panic Verified 04/29/24 16:23 attacks Assessment & Plan Assessment & Plan (1) Major depressive disorder, recurrent severe without psychotic features: Status: Acute Code(s): F33.2 - Major depressive disorder, recurrent severe without psychotic features (2) Suicidal ideation: Status: Acute Code(s): R45.851 - Suicidal ideations Plan Recurrent Major Depression with SI. Plan: Admit, CV, 5 minute checks with wheelchair. Encourage full milieu Medication evaluation Collateral contacts with providers and family as pt will allow. Aftercare planning 05/02/24: Change timing of Prozac to bedtime, beginning 05/03/24. 05/03: Continue current regimen and plans for stabilization and medication management 05/04: Continue current regimen and plans for stabilization and medication management Reason for continued inpatient stay Substantial Risk for: med/psych decompensation Time Spent With Patient Time: Total time managing care of this patient today ____ minutes.
[2024-05-04 19:51] VITALS: BP 125/75; PULSE 84; RESP 15; TEMP 36.4; O2SAT 100
[2024-05-04] MEDS: Sertraline HCL 100 MG TABLET PO (20:27)
[2024-05-04] MEDS: FLUoxetine HCl 10 MG CAPSULE PO (20:27)
[2024-05-04] MEDS: Docusate Sodium 100 MG CAPSULE PO (20:27)
[2024-05-04] MEDS: lamoTRIgine 100 MG TABLET 200 MG PO (20:28)
[2024-05-05 08:00] VITALS: BP 123/70; PULSE 83; TEMP 36.7; O2SAT 98
[2024-05-05] MEDS: ARIPiprazole 10 MG TABLET PO (08:17)
[2024-05-05] MEDS: lamoTRIgine 100 MG TABLET 250 MG PO (08:18)
[2024-05-05] MEDS: Folic Acid 1 MG TABLET PO (08:20)
[2024-05-05] MEDS: Levothyroxine Sodium 50 MCG TABLET PO (08:20)
[2024-05-05] MEDS: Cholecalciferol (Vitamin D3) 25 MCG TABLET PO (08:20)
--- NOTE | 2024-05-05 16:12 | HO.PSYCHPN ---
Subjective Subjective Date of Service: 05/05/24 Reason For Visit: mood disorder Subjective Notes: Conditional Voluntary Healthcare Proxy: No Guardianship: No Medical Problems Affecting Mental Status: No Interim History: Saurabh reports a reasonable weekend. She is tolerating regime, asks that both be given at bedtime as there are side effects of sedation and believes the regime to be effective. Denies SI/HI/AH/VH. Discussed discharge for 05/06 which she agrees with. Medication Compliance: Yes Side effects from medications: Yes (sedation-will have both at bedtime) Attending Groups: Intermittent Review of Systems Acute medical concerns: No Medical Review of Systems: unchanged Review of Systems Review of Systems Yes all other systems are reviewed and are negative Mental Status Exam Mental Status Exam Patient Appearance: Appropriate Patient Orientation: Person, Place, Time and Situation Level of Consciousness: Alert Patient Behavior: Talkative and Good Eye Contact Mood Description: Anxious Affect Description: Anxious Patient Cognition Impaired: No Ability to Follow Directions: Good Speech Pattern: Spontaneous Speech Memory Description: Episodic Impaired Hallucinations: None Delusions: Not Present Thought Content: positive for Circumstantial and positive for Suicidal Ideation (denies SI, Plan, Intent) Depressive Symptoms: Thoughts of /Suicide (denies SI, plan, intent) Judgement: Good Diagnostics Vital Signs (24Hr): Vital Signs - 24 hr 05/04/24 19:51 05/05/24 08:00 Temperature 97.5 F 98.1 F Pulse Rate 84 83 Respiratory Rate 15 Blood Pressure 125/75 123/70 Pulse Oximetry 100 98 Oxygen Delivery Method Room Air BMI result Body Mass Index 23.6 Labs 04/29/24 17:03 04/29/24 17:03 Medications Medications Current Medications Acetaminophen (Acetaminophen 325 Mg Tablet) 650 mg PO Q6H PRN PRN Reason: Headache/Pain Mild Scale (1-3) Last Admin: 05/01/24 21:13 Dose: 650 mg Al Hydroxide/Mg Hydroxide (Magnesium Hydrox/Alum Hydrox 30 Ml Oral.Susp) 30 ml PO Q6H PRN PRN Reason: Heartburn/Nausea Aripiprazole (Aripiprazole 10 Mg Tablet) 10 mg PO BEDTIME [facility] Docusate Sodium (Docusate Sodium 100 Mg Capsule) 100 mg PO BEDTIME [facility] Last Admin: 05/04/24 20:27 Dose: 100 mg Fluoxetine HCl (Fluoxetine Hcl 10 Mg Capsule) 10 mg PO BEDTIME [facility] Last Admin: 05/04/24 20:27 Dose: 10 mg Folic Acid (Folic Acid 1 Mg Tablet) 1 mg PO DAILY [facility] Last Admin: 05/05/24 08:20 Dose: 1 mg Hydroxyzine HCl (Hydroxyzine Hcl 25 Mg Tablet) 25 mg PO Q6H PRN PRN Reason: Anxiety Last Admin: 05/03/24 20:51 Dose: 25 mg Ibuprofen (Ibuprofen 800 Mg Tablet) 800 mg PO Q8H PRN PRN Reason: Pain, Mild (Pain Scale 1-3) Last Admin: 05/01/24 12:02 Dose: 800 mg Lamotrigine (Lamotrigine 100 Mg Tablet) 250 mg PO DAILY [facility] Last Admin: 05/05/24 08:18 Dose: 250 mg Lamotrigine (Lamotrigine 100 Mg Tablet) 200 mg PO BEDTIME [facility] Last Admin: 05/04/24 20:28 Dose: 200 mg Levothyroxine Sodium (Levothyroxine Sodium 50 Mcg Tablet) 50 mcg PO DAILY [facility] Last Admin: 05/05/24 08:20 Dose: 50 mcg Magnesium Hydroxide (Milk Of Magnesia 30 Ml Oral.Susp) 30 ml PO DAILY PRN PRN Reason: Constipation Nicotine (Nicotine 21 Mg Patch.Td24) 21 mg TRANSDERMA DAILY PRN PRN Reason: Nicotine Cravings Nicotine Polacrilex (Nicotine Polacrilex 2 Mg Gum) 4 mg BUCCAL Q2H PRN PRN Reason: Nicotine Cravings Sertraline HCl (Sertraline Hcl 100 Mg Tablet) 100 mg PO BEDTIME [facility] Last Admin: 05/04/24 20:27 Dose: 100 mg Trazodone HCl (Trazodone Hcl 50 Mg Tablet) 50 mg PO BEDTIME MRX1 PRN PRN Reason: Insomnia Vitamin D (Cholecalciferol (Vitamin D3) 25 Mcg Tablet) 25 mcg PO DAILY [facility] Last Admin: 05/05/24 08:20 Dose: 25 mcg Allergies Allergies Allergy/AdvReac Type Severity Reaction Status Date / Time potassium AdvReac Intermediate panic Verified 04/29/24 16:23 attacks Assessment & Plan Assessment & Plan (1) Major depressive disorder, recurrent severe without psychotic features: Status: Acute Code(s): F33.2 - Major depressive disorder, recurrent severe without psychotic features (2) Suicidal ideation: Status: Acute Code(s): R45.851 - Suicidal ideations Plan Recurrent Major Depression with SI. Plan: Admit, CV, 5 minute checks with wheelchair. Encourage full milieu Medication evaluation Collateral contacts with providers and family as pt will allow. Aftercare planning 05/02/24: Change timing of Prozac to bedtime, beginning 05/03/24. 05/03: Continue current regimen and plans for stabilization and medication management 05/04: Continue current regimen and plans for stabilization and medication management 05/05: Plan for discharge 05/06. Change med regime to HS to manage sedative effects. Reason for continued inpatient stay Substantial Risk for: stable for discharge Time Spent With Patient Time: Total time managing care of this patient today ____ minutes.
[2024-05-05 20:00] VITALS: BP 113/68; PULSE 80; TEMP 36.9; O2SAT 97
[2024-05-05] MEDS: Sertraline HCL 100 MG TABLET PO (20:16)
[2024-05-05] MEDS: FLUoxetine HCl 10 MG CAPSULE PO (20:16)
[2024-05-05] MEDS: lamoTRIgine 100 MG TABLET 200 MG PO (20:16)
[2024-05-05] MEDS: Docusate Sodium 100 MG CAPSULE PO (20:16)
[2024-05-06 08:00] VITALS: BP 133/71; PULSE 80; RESP 16; TEMP 37; O2SAT 96
[2024-05-06] MEDS: Levothyroxine Sodium 50 MCG TABLET PO (08:24)
--- NOTE | 2024-05-06 08:50 | P.DS_ITS ---
DS: Providers Provider Date of Service: 05/06/24 Date of admission: 04/30/24 14:31 Date of discharge: 05/06/24 Primary care physician: Clara Qiu MD Admitting clinician: Kate Bob Attending physician on admission: David Lynn Attending physician on discharge: David Lynn Discharging clinician: Kate Bob DS: Diagnosis Discharge Diagnosis (1) Major depressive disorder, recurrent severe without psychotic features: Status: Acute (2) Suicidal ideation: Status: Resolved DS: Medications Discharge Medications Home Medications: Previous Rx's ?Medication ?Instructions ?Recorded cholecalciferol (vitamin D3) 25 25 mcg PO DAILY 90 days #90 caps 07/29/23 mcg (1,000 unit) capsule (Vitamin D3) folic acid 1 mg tablet 1 mg PO DAILY 90 days #90 tabs 08/09/23 sertraline 100 mg tablet 100 mg PO BEDTIME #90 tabs 12/19/23 Left ASO brace #1 ea 02/27/24 levothyroxine 50 mcg tablet 50 mcg PO DAILY #30 tabs 04/07/24 aripiprazole 15 mg tablet (Abilify) 15 mg PO BEDTIME #30 tabs 05/05/24 docusate sodium 100 mg capsule 100 mg PO BEDTIME #30 caps 05/05/24 fluoxetine 10 mg capsule 10 mg PO BEDTIME #30 caps 05/05/24 lamotrigine 100 mg tablet 200 mg (2 x 100 mg) PO BEDTIME #60 05/05/24 tabs lamotrigine 100 mg tablet 250 mg (2.5 x 100 mg) PO DAILY #75 05/05/24 tabs Mental Status Exam Mental Status Exam Patient Appearance: Appropriate Patient Orientation: Person, Place, Time and Situation Level of Consciousness: Alert Patient Behavior: Talkative and Good Eye Contact Mood Description: Anxious Affect Description: Anxious Patient Cognition Impaired: No Ability to Follow Directions: Good Speech Pattern: Spontaneous Speech Memory Description: Episodic Impaired Hallucinations: None Delusions: Not Present Thought Content: positive for Circumstantial and positive for Suicidal Ideation (denies SI, Plan, Intent) Depressive Symptoms: Thoughts of /Suicide (denies SI, plan, intent) Judgement: Good Data Data Completed and Pending Completed studies during hospitalization [Text1]: 04/29/24 04/29/24 05/01/24 17:03 17:14 09:29 WBC 5.6 RBC 4.21 Hgb 12.4 Hct 38.6 MCV 91.7 MCH 29.5 MCHC 32.1 RDW 13.2 Plt Count 391 MPV 8.5 L Immature Gran % (Auto) 0.2 Neut % (Auto) 57.6 Lymph % (Auto) 32.2 Winkler % (Auto) 6.1 Eos % (Auto) 3.0 Baso % (Auto) 0.9 Lymph # (Auto) 1.8 Winkler # (Auto) 0.3 Eos # (Auto) 0.2 Baso # (Auto) 0.1 Abs Immat Gran (auto) 0.01 Absolute Neuts (auto) 3.2 Absolute Nucleated RBC 0.000 Nucleated RBC % (auto) 0.0 Sodium 140 Potassium 4.0 Chloride 104 Carbon Dioxide 27 Anion Gap 13 BUN 12 Creatinine 0.82 Estim Creat Clear Calc 98.1 Estimated GFR > 60 Random Glucose 90 Estimat Average Glucose 97 Hemoglobin A1c % 5.0 Calcium 10.4 H Magnesium 2.2 Total Bilirubin 0.4 AST 14 ALT 16 Alkaline Phosphatase 82 Total Protein 8.7 H Albumin 4.6 Triglycerides 96 Cholesterol 244 H LDL Cholesterol, Calc 179 H HDL Cholesterol 46 Vitamin B12 585 Folate 16.5 TSH 4.67 H 5.87 H Free T4 1.18 1.23 Urine Color Yellow Urine Appearance Clear Urine pH 5.5 Ur Specific [place]le 1.015 Urine Protein Negative Urine Glucose (UA) Negative Urine Ketones Negative Urine Blood Negative Urine Nitrite Negative Ur Leukocyte Esterase Small (1+) H Urine RBC 0-2 Urine WBC 6-10 H Ur Squamous Epith Cells 6-10 Urine Bacteria Trace Hyaline Casts 0-2 Urine Test NEGATIVE Urine Opiates Screen Not Detected Ur Buprenorphine Scrn Not Detected Ur Oxycodone Screen Not Detected Urine Methadone Screen Not Detected Urine Fentanyl Screen Not Detected Ur Barbiturates Screen Not Detected Ur Phencyclidine Scrn Not Detected Ur Amphetamines Screen Not Detected U Benzodiazepines Scrn Not Detected [place] < 0.10 L Urine Cocaine Screen Not Detected U Marijuana (THC) Screen Not Detected Ethyl Alcohol 10 04/29/24 17:14 Urine clean catch - Clean Catch Midstream Urine Culture - Final Klebsiella pneumoniae DS: Summary Hospital Course Hospital Course: Admission to adult psychiatry for exacerbation of recurrent major depression with SI. Pt reporting increase in symptoms of depression, racing thoughts and anxiety. Recent med change-pt stopped [place] due to thyroid abnormalities with initiation of Fluoxetine. Stressors include daughter admitted to Feb 2024 with HI toward pt and pets. She will be entering long term acute care registered nurse residential care next month pt believes and while pt is relieved she is getting the care she needs, she expresses a component of grief and loss in this change in plans for her daughter. Pt was encouraged to utilize the milieu for process and support which she did. She was able to re-establish her safety and begin to move forward. Prozac was initiated without adverse effect. Abilify, Lamictal and Sertraline were maintained. Pt will return to her out pt team for ongoing cross titration from Sertraline to Prozac. She will call and/or return as needed. Status at Discharge Functional status at discharge: wheelchair bound Overall status at discharge: patient is progressing back to baseline Time Spent with Patient Time attestation: Total time managing care of this patient today ____ minutes. Time spent: Less than 30 minutes Discharge Plan Discharge Anticipated Discharge Date/Time: 05/06/24 12:00 Patient Disposition: Home, Self-Care Discharge Diagnosis: Recurrent major depression Referrals: [facility]- Medication Management [Other] - 06/03/24 1:00 pm (Telehealth visit with Shila Reagan NP for medication management ) [facility]- Therapy [Other] - 05/12/24 4:00 pm (Appointment is with Ernst Bone and is in office ) [facility]-Therapy [Other] - 05/19/24 4:00 pm (Therapy appointment with Ernst Bone in office ) Clara Qiu MD [Primary Care Provider] - 1 Week (Office will call PT with appointment ) Discharge Medications: New fluoxetine 10 mg Capsule 10 mg PO BEDTIME Qty: 30 0RF docusate sodium 100 mg Capsule 100 mg PO BEDTIME Qty: 30 0RF lamotrigine 100 mg Tablet 200 mg PO BEDTIME Qty: 60 0RF lamotrigine 100 mg Tablet 250 mg PO DAILY Qty: 75 0RF aripiprazole [Abilify] 15 mg tablet 15 mg PO BEDTIME Qty: 30 0RF Continued cholecalciferol (vitamin D3) [Vitamin D3] 25 mcg (1,000 unit) capsule 25 mcg PO DAILY 90 Days Qty: 90 3RF folic acid 1 mg tablet 1 mg PO DAILY 90 Days Qty: 90 3RF (DME) Left ASO brace See Rx Instructions .Route .MEDSUPPLY Qty: 1 0RF Rx Instructions: As directed sertraline 100 mg tablet 100 mg PO BEDTIME Qty: 90 1RF levothyroxine 50 mcg tablet 50 mcg PO DAILY Qty: 30 6RF Discontinued lamotrigine 100 mg tablet See Rx Instructions PO DAILY 30 Days Qty: 135 3RF Rx Instructions: Take 250mg in am and 200mg at bedtime orally daily; aripiprazole 10 mg tablet 10 mg PO DAILY aripiprazole 5 mg tablet 5 mg PO QPM No Action lorazepam 0.5 mg tablet 0.5 mg PO TID PRN (Reason: anxiety) 3 Days Qty: 9 0RF Discharge Orders: Discharge Order (Routine); Ordered 05/05/24 Ordered By: Kate Bob Diet: Advance to usual diet Activity on Discharge: As tolerated Stand Alone Forms: Patient Portal Discharge page Print Language: Mongolian Care Plan Goals: Mood and Behavioral Stabilization Health Concerns: Mood and Behavioral Stabilization Plan of Treatment: Attend scheduled appointments Take medications as directed. Prozac was initiated on 05/03 and has been tolerated. -Sertraline taper will need to be initiated once pt has established no adverse response to Prozac Assessment: No SI/HI/AH/VH No sx of psychosis or chirag Agrees with current plan of care. Discharge Date/Time: 05/06/24 11:38
[2024-05-06] MEDS: Folic Acid 1 MG TABLET PO (08:53)
[2024-05-06] MEDS: lamoTRIgine 100 MG TABLET 250 MG PO (08:53)
[2024-05-06] MEDS: Cholecalciferol (Vitamin D3) 25 MCG TABLET PO (08:53)
== END 2024-05-06 11:38 | disposition home or self-care (01) | DRG 885 ==
LOC: HO.ED 04-30 14:38 → HO.PM5 04-30 14:41
PROVIDERS: Nurse Practitioner Family; Registered Nurse Emergency; Admitting Provider Clinical Nurse Specialist Psychiatric/Mental Health, Adult; Emergency Provider Emergency Medicine; PCP Internal Medicine; Visit Provider Clinical Nurse Specialist Psychiatric/Mental Health, Adult
DX: F33.2 Major depressive disorder, recurrent severe without psychotic features (principal); R45.851 Suicidal ideations; E03.9 Hypothyroidism, unspecified; Z79.890 Hormone replacement therapy; Z79.899 Other long term (current) drug therapy
CPT/HCPCS: 36415; 80053; 80061; 80178; 80307; 81001; 81025; 82607; 82746; 83036; 83735; 84439; 84443; 85025; 87086; 87088; 87186; 93005; 99285; S9485

== ENCOUNTER → 2024-04-30 13:31 | Outpatient (BNV) | payer OTHER, SELFPAY | PROVIDERS: Admitting Provider Clinical Nurse Specialist Psychiatric/Mental Health, Adult; Emergency Provider Emergency Medicine; PCP Internal Medicine; Visit Provider Internal Medicine Cardiovascular Disease | DX: R00.0 Tachycardia, unspecified (principal) | CPT/HCPCS: 93010 ==

== ENCOUNTER → 2024-04-30 14:31 | Outpatient (BNV) | payer OTHER, SELFPAY | PROVIDERS: Admitting Provider Clinical Nurse Specialist Psychiatric/Mental Health, Adult; Emergency Provider Emergency Medicine; PCP Internal Medicine; Visit Provider Clinical Nurse Specialist Psychiatric/Mental Health, Adult | DX: F33.2 Major depressive disorder, recurrent severe without psychotic features (principal); R45.851 Suicidal ideations | CPT/HCPCS: 90792; 99231; 99232; 99238 ==

== ENCOUNTER 2024-05-09 12:46 | Outpatient (AMB) | payer OTHER, SELFPAY ==
[2024-05-09 13:14] VITALS: BP 124/78; PULSE 85; O2SAT 97; BMI 23.1
--- NOTE | 2024-05-09 13:14 | A.OFFPC_ITS ---
Vital Signs 05/09/24 13:14 Height 5 ft 9 in Weight 156 lb 8 oz BMI 23.1 BP 124/78 Blood Pressure Location Rt brachial Position Sitting Pulse 85 Pulse Source Pulse Oximeter Pulse Oximetry (%) 97 Oxygen Delivery Method Room Air Intake Visit Reasons: ED Follow Up Allergies potassium Adverse Reaction (Intermediate, Verified 05/09/24 13:24) panic attacks Medication List - Last Reconciled 05/09/24 by Clara Qiu MD aripiprazole (Abilify) 15 mg PO BEDTIME cholecalciferol (vitamin D3) (Vitamin D3) 25 mcg PO DAILY 90 days docusate sodium 100 mg PO BEDTIME fluoxetine 10 mg PO BEDTIME folic acid 1 mg PO DAILY 90 days lamotrigine 200 mg (2 x 100 mg) PO BEDTIME lamotrigine 250 mg (2.5 x 100 mg) PO DAILY [Left ASO brace As directed] levothyroxine 50 mcg PO DAILY sertraline 100 mg PO BEDTIME Tobacco use date assessed: 05/09/24 Dental Screening Dental Screen Date: 05/09/24 Did you have a dental visit in the last 12 months?: Yes Did you have a dental problem in the last 6 months where you did not have access to dental care?: No Was dental information given to patient?: Patient has dentist HPI ED Follow Up HPI Details Patient is a 38-year-old female who presented to [facility] Emergency room on 04/29/2024 for the evaluation of suicidal ideation with plan to cut herself. 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 Patient has been feeling increasingly depressed, she verbalized do not feeling safe at home. Patient was concerned about her daughter's recent hospitalization for psychiatric issues She verbalized to staying in the hospital at least for a night Patient says that when she sees knives in the kitchen that triggers panic in She denied any drug or alcohol use, and denied any hallucinations. A month ago she was taken off lithium because it was affecting her thyroid. Patient is seeing a psychiatrist In emergency room she had labs done, CBC without acute abnormality, no electrolyte derangement, LFT unremarkable, TSH was 4.67 with normal T4. UA showed no signs of infection, HCG negative, alcohol negative Patient was on lamotrigine 100 mg, sertraline 100 mg, Abilify 10 mg Levothyroxine 50 mcg She is also on vitamin-D and folic acid supplement The patient reports feeling slightly better but still experiencing persistent anxiety, which is currently manageable. The patient has an upcoming appointment with her psychiatrist. Hypercholesterolemia was noted, and management is deferred until the patient is stabilized. 1. Generalized Anxiety Disorder The patient will be prescribed Lorazepam for acute management of anxiety symptoms over the weekend until she can be assessed by her psychiatrist. The dosage is up to 3 times daily, with caution advised due to potential for drowsiness. Longer-term management will be discussed with her psychiatrist. 2. Hypothyroidism The patient's thyroid medication, Levothyroxine, should be taken on an empty stomach to ensure proper absorption. Blood work has indicated a deviation in thyroid function tests A message will be sent to Dr. Castro for review of current thyroid function tests and further adjustments if necessary. 3. Hypercholesterolemia The patient is currently not on any pharmacological treatment for hypercholesterolemia. She has deferred discussion of management to focus on stabilizing her anxiety and thyroid condition. Follow-up will be scheduled to address cholesterol management once other conditions are under better control. Problem List - major depression leading to suicidal i deation recently requiring hospitalization [facility], but not anymore - Generalized Anxiety Disorder - Hypothyroidism - Hypercholesterolemia Patient Instructions - Take Lorazepam as prescribed for anxie ty if needed over the weekend, not exceeding two doses per day. - Ensure Levothyroxine is taken on an em pty stomach and not mixed with other medications. - Await further guidance on thyroid ann martines after Dr. Howard reviews thyroid function tests. - Follow up in June for further evalu ation and management of hypercholesterolemia and ensure to attend existing appointment on June 24. [facility] Medical History Lymphadenopathy of head and neck Hypothyroid Cannabis use disorder, mild, abuse TBI (traumatic brain injury) CVA (cerebral vascular accident) Seizures Anxiety, generalized Surgical History History of brain shunt History of bilateral tubal ligation History of craniotomy Family History Father No problems noted. Mother Diabetes HTN (hypertension) Heart disease Maternal Aunt Colon cancer Brother Diverticular disease Depression Anxiety Brother No problems noted. Sister No problems noted. Daughter Anxiety Depression ADHD Other Mental health disorder Substance use disorder Social History Household Members: Spouse and Children Household Members Other:: , 13 yo daughter Housing: Apartment Do you presently have visiting nurse or other home services: No Unable to assess alcohol history related to: Unknown Alcohol intake: never Patient Tobacco Use Status: Never used Tobacco e-Cigarette/Vaping Use: Never Used service: No Current occupational status: unemployed Sexual orientation: Straight/Heterosexual Cognitive needs: No Hearing needs: No Vision needs: No Questionnaire PHQ-9 Over the last 2 weeks, how often have you been bothered by any of the following problems? Depression Screening Interpretation: Negative Depression Screening Done: Yes Source: Developed by Drs. Deandre Bateman, Corrie Cartwright, Sidney Garcia and colleagues, with an educational puneet from [email or web address]. Thrive Questionnaire Date Thrive assessed: 05/09/24 Currently or been in a relationship where the following occur: Controlled Emotionally THRIVE Score: 1 AUDIT C Alcohol Use Questionnaire (AUDIT-C) 1. How often do you have a drink containing alcohol?: Never 3. How often do you have six or more drinks on one occasion?: Never Total Score: 0 Score Reviewed/Action Taken: Yes TIKA-7 AMB Questionnaire TIKA-7 Date TIKA - 7 assessed: 01/29/24 Source: Developed by Drs. Deandre Bateman, Corrie Cartwright, Sidney Garcia and colleagues, with an educational puneet from [email or web address]. Review of Systems Const Denies chills and Denies fever(s) ENT Denies epistaxis and Denies nasal discharge Card Denies chest pain Resp Denies chest congestion, Denies cough and Denies hemoptysis GI Denies diarrhea and Denies nausea Skin/Breast Denies rash Neuro Reports no additional complaints Psych Reports no additional complaints Endo Reports no additional complaints Physical exam (Primary Care) Vital Signs: Last Vital Signs Pulse 85 05/09/24 13:14 BP 124/78 05/09/24 13:14 Pulse Ox 97 05/09/24 13:14 Oxygen Delivery Method Room Air 05/09/24 13:14 BMI result Body Mass Index 23.1 Tobacco/Smoking Status: Tobacco use Status Tobacco use date assessed 05/09/24 05/09/24 13:25 Patient Tobacco Use Status Never used Tobacco 05/09/24 13:18 e-Cigarette/Vaping Use Never Used 05/09/24 13:18 Depression Screening Interpretation: Negative Thrive Assessment: Date of Thrive Assessment Date Thrive assessed 05/09/24 05/09/24 13:25 Currently or been in a relationship where the following occur: Controlled Emotionally Const General: cooperative and comfortable Orientation/consciousness: patient oriented x3 HENMT Head: Yes normocephalic Eyes General: appearance normal, both eyes and all related structures Neck Neck: Yes supple Resp Effort & Inspection: normal respiratory effort, no cough and no stridor Cardio Rhythm: regular rhythm Heart sounds: S1 normal heart sound present and S2 normal heart sound present Skin General skin exam: turgor normal Neuro Other: Spastic gait of left lower limb with contracture of left hand Patient is walking holding onto [place], or her mother General: patient oriented x3 Extrem Right lower extremity: no edema Left lower extremity: no edema Coding Level of Care Code Est Pt Level 5 (54419) Diagnoses Hospital discharge follow-up Z09 Panic attacks F41.0 Major depressive disorder, recurrent severe without psychotic features F33.2 History of suicidal ideation Z86.59 Other specified hypothyroidism E03.8 Lipid disorder E78.9 Cannabis use disorder, mild, abuse F12.10 Anxiety, generalized F41.1 Assessment & Plan Assessment & Plan (1) Hospital discharge follow-up: Code(s): Z09 - Encounter for follow-up examination after completed treatment for conditions other than malignant neoplasm Category: Medical (2) Panic attacks: Code(s): F41.0 - Panic disorder [episodic paroxysmal anxiety] Category: Medical (3) Major depressive disorder, recurrent severe without psychotic features: Code(s): F33.2 - Major depressive disorder, recurrent severe without psychotic features Category: Medical (4) History of suicidal ideation: Code(s): Z86.59 - Personal history of other mental and behavioral disorders Category: Medical (5) Other specified hypothyroidism: Code(s): E03.8 - Other specified hypothyroidism Category: Medical (6) Lipid disorder: Code(s): E78.9 - Disorder of lipoprotein metabolism, unspecified Category: Medical (7) Cannabis use disorder, mild, abuse: Code(s): F12.10 - Cannabis abuse, uncomplicated Category: Medical (8) Anxiety, generalized: Code(s): F41.1 - Generalized anxiety disorder Category: Medical Plan Patient is a 38-year-old female who presented to [facility] Emergency room on 04/29/2024 for the evaluation of suicidal ideation with plan to cut herself. 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 Patient has been feeling increasingly depressed, she verbalized do not feeling safe at home. Patient was concerned about her daughter's recent hospitalization for psychiatric issues She verbalized to staying in the hospital at least for a night Patient says that when she sees knives in the kitchen that triggers panic in She denied any drug or alcohol use, and denied any hallucinations. A month ago she was taken off lithium because it was affecting her thyroid. Patient is seeing a psychiatrist In emergency room she had labs done, CBC without acute abnormality, no electrolyte derangement, LFT unremarkable, TSH was 4.67 with normal T4. UA showed no signs of infection, HCG negative, alcohol negative Patient was on lamotrigine 100 mg, sertraline 100 mg, Abilify 10 mg Levothyroxine 50 mcg She is also on vitamin-D and folic acid supplement The patient reports feeling slightly better but still experiencing persistent anxiety, which is currently manageable. The patient has an upcoming appointment with her psychiatrist. Hypercholesterolemia was noted, and management is deferred until the patient is stabilized. 1. Generalized Anxiety Disorder The patient will be prescribed Lorazepam for acute management of anxiety sympt oms over the weekend until she can be assessed by her psychiatrist. The dosage is up to 3 times daily, with caution advised due to potential for drowsiness. Longer-term management will be discussed with her psychiatrist. 2. Hypothyroidism The patient's thyroid medication, Levothyroxine, should be taken on an empty stomach to ensure proper absorption. Blood work has indicated a deviation in thyroid function tests A message will be sent to Dr. Castro for review of current thyroid function tests and further adjustments if necessary. 3. Hypercholesterolemia The patient is currently not on any pharmacological treatment for hypercholesterolemia. She has deferred discussion of management to focus on stabilizing her anxiety and thyroid condition. Follow-up will be scheduled to address cholesterol management once other conditions are under better control. Problem List - major depression leading to suicidal ideation recently requiring hospitalization [facility], but not anymore - Generalized Anxiety Disorder - Hypothyroidism - Hypercholesterolemia Patient Instructions - Take Lorazepam as prescribed for anxiety if needed over the weekend, not exceeding two doses per day. - Ensure Levothyroxine is taken on an empty stomach and not mixed with other medications. - Await further guidance on thyroid management after Dr. Howard reviews thyroid function tests. - Follow up in June for further evaluation and management of hypercholesterolemia and ensure to attend existing appointment on June 24. 45 minutes spent in care of this patient Medications: New lorazepam 0.5 mg PO TID 3 days PRN 9 tabs 0RF anxiety
== END 2024-05-09 14:41 | disposition home or self-care (01) ==
PROVIDERS: PCP Internal Medicine; Visit Provider Internal Medicine
DX: F33.2 Major depressive disorder, recurrent severe without psychotic features (principal); Z09 Encounter for follow-up examination after completed treatment for conditions other than malignant neoplasm; F41.0 Panic disorder [episodic paroxysmal anxiety]; Z86.59 Personal history of other mental and behavioral disorders; E03.8 Other specified hypothyroidism; E78.9 Disorder of lipoprotein metabolism, unspecified; F12.10 Cannabis abuse, uncomplicated; F41.1 Generalized anxiety disorder

== ENCOUNTER → 2024-05-09 12:46 | Outpatient (BNVA) | payer OTHER, SELFPAY | PROVIDERS: PCP Internal Medicine; Visit Provider Internal Medicine | DX: Z09 Encounter for follow-up examination after completed treatment for conditions other than malignant neoplasm (principal); F41.0 Panic disorder [episodic paroxysmal anxiety]; F33.2 Major depressive disorder, recurrent severe without psychotic features; E03.8 Other specified hypothyroidism; E78.9 Disorder of lipoprotein metabolism, unspecified; F12.10 Cannabis abuse, uncomplicated; F41.1 Generalized anxiety disorder; Z86.59 Personal history of other mental and behavioral disorders | CPT/HCPCS: 99212 ==

== ENCOUNTER 2024-06-16 13:14 | Outpatient (REF) | payer OTHER, SELFPAY ==
[2024-06-16 16:35] LABS: Albumin Level 4.4 g/dL (3.5-5.0); Anion Gap 10 (12-20); Blood Urea Nitrogen 20 mg/dL (9-16); Calcium 9.9 mg/dL (8.4-10.2); Carbon Dioxide 26 mmol/L (22-29); Chloride 110 mmol/L (96-108); Estimated Glomerular Filt Rate > 60; Glucose Random 104 mg/dL (60-115); Phosphorus 3.3 mg/dL (2.7-4.5); Potassium 4.2 mmol/L (3.3-5.1); Sodium 142 mmol/L (135-145)
[2024-06-16 16:53] LABS: Free T4 (Free Thyroxine) 1.05 ng/dL (0.71-1.85); Vitamin D 25-OH Total 50.8 ng/mL (>30)
[2024-06-16 17:07] LABS: Parathyroid Hormone Intact 44.2 pg/mL (8.7-77.1)
[2024-06-17 11:38] LABS: Calcium, Ionized 5.4 mg/dL (4.7-5.5)
[2024-06-17 12:03] LABS: Thyroid Peroxidase Antibodies 502 IU/mL (<9)
== END 2024-06-16 13:15 | disposition home or self-care (01) ==
LOC: HO.HMGCLDS 13:14
PROVIDERS: PCP Internal Medicine; Visit Provider Student in an Organized Health Care Education/Training Program
DX: E83.52 Hypercalcemia (principal); E06.3 Autoimmune thyroiditis
CPT/HCPCS: 36415; 80048; 82040; 82306; 82330; 83970; 84100; 84439; 84443; 86376

== ENCOUNTER 2024-06-24 10:00 | Outpatient (REF) | payer OTHER, SELFPAY ==
[2024-06-24 14:43] LABS: Creatinine, 24Hr Urine 1.2 G/Day (1.0-2.0); Total Volume 24 Hour Urine 775 mL
[2024-06-25 16:19] LABS: Calcium, 24 Hr Urine 127 mg/24 h; Calcium/Creatinine Ratio 112 mg/g creat (30-275); Creatinine 24Hr Urine 1.13 g/24 h (0.50-2.15)
== END 2024-06-24 10:01 | disposition home or self-care (01) ==
LOC: HO.HMGCLNP 10:00
PROVIDERS: Visit Provider Student in an Organized Health Care Education/Training Program
DX: E78.5 Hyperlipidemia, unspecified (principal); E03.9 Hypothyroidism, unspecified; F31.9 Bipolar disorder, unspecified; E83.52 Hypercalcemia; Z79.899 Other long term (current) drug therapy
CPT/HCPCS: 82340; 82570; 96127; 99212

== ENCOUNTER 2024-06-24 11:03 | Outpatient (AMB) | payer OTHER, SELFPAY ==
[2024-06-24 11:16] VITALS: BP 120/78; PULSE 86; O2SAT 98; BMI 24.1
--- NOTE | 2024-06-24 11:16 | MHC.PC.OV ---
Vital Signs 06/24/24 11:16 Height 5 ft 9 in Weight 163 lb 8 oz BMI 24.1 BP 120/78 Blood Pressure Location Rt brachial Position Sitting Pulse 86 Pulse Source Pulse Oximeter Pulse Oximetry (%) 98 Oxygen Delivery Method Room Air Intake Visit Reasons: 6 month follow up Allergies potassium Adverse Reaction (Intermediate, Verified 06/24/24 11:18) panic attacks Medication List - Last Reconciled 06/24/24 by Clara Qiu MD aripiprazole (Abilify) 15 mg PO BEDTIME cholecalciferol (vitamin D3) (Vitamin D3) 25 mcg PO DAILY 90 days docusate sodium 100 mg PO BEDTIME fluoxetine 10 mg PO BEDTIME folic acid 1 mg PO DAILY 90 days lamotrigine 200 mg (2 x 100 mg) PO BEDTIME lamotrigine 250 mg (2.5 x 100 mg) PO DAILY [Left ASO brace As directed] levothyroxine 75 mcg PO DAILY lorazepam 0.5 mg PO TID PRN 3 days Tobacco use date assessed: 06/24/24 Dental Screening Dental Screen Date: 06/24/24 Did you have a dental visit in the last 12 months?: No Did you have a dental problem in the last 6 months where you did not have access to dental care?: No Was dental information given to patient?: Patient has dentist HPI 6 month follow up HPI Details History - bulleted - The patient is a 38 year old female presenting with follow-up for hyperlipidemia. - Elevated cholesterol noted with LDL at 179 mg/dL; target is less than 100 mg/dL. - Recent labs performed at the beginning of the year, cholesterol elevation determined during a previous appointment. - Medication discussion includes starting treatment for hyperlipidemia. - Continues management of hypothyroidism with levothyroxine; thyroid labs reportedly normal from recent tests. Management is through endocrinology - Major depressive disorder and bipolar disorder being managed with Abilify, fluoxetine, and lamotrigine. Management through Psychiatry - Fluoxetine dosage recently adjusted to 40 mg; patient no longer takes citalopram, replaced by fluoxetine Review of Systems Respiratory: Reports sneezing started this morning Gastrointestinal: Denies current constipation - General: No fever no chills - Neurological: No headaches no dizziness - Ear nose throat: No sore throat no hearing difficulty no ear pain - Cardiovascular: No syncope, no chest pain, no palpitations - Endocrine: No polyuria polydipsia no heat intolerance - Genitourinary: No dysuria , no blood in urine Physical Exam - General: No acute distress - HEENT: No acute findings - Neck: Supple - Respiratory system: Able to talk in full sentences, no audible wheeze - cardiovascular: S1-S2 regular in rate and rhythm - Gastrointestinal: No pain - Extremities: No new findings - TRAINING DIRECTOR: Alert awake oriented x3 , spastic gait but was able to get on examination table - Skin: Normal turgor Patient Instructions - Begin prescribed medication for hyperlipidemia, take it at night as directed. - Schedule fasting labs in two months to evaluate effectiveness of cholesterol medication. - Monitor for any side effects such as nausea, vomiting, or rash, and discontinue if symptoms occur. - Maintain routine thyroid medication as currently prescribed. - Follow up in December for a physical exam. - Report any increase in respiratory symptoms or changes in health promptly. [facility] Medical History Lymphadenopathy of head and neck Hypothyroid Cannabis use disorder, mild, abuse TBI (traumatic brain injury) CVA (cerebral vascular accident) Seizures Anxiety, generalized Surgical History History of brain shunt History of bilateral tubal ligation History of craniotomy Family History Father No problems noted. Mother Diabetes HTN (hypertension) Heart disease Maternal Aunt Colon cancer Brother Diverticular disease Depression Anxiety Brother No problems noted. Sister No problems noted. Daughter Anxiety Depression ADHD Other Mental health disorder Substance use disorder Social History Household Members: Spouse and Children Household Members Other:: , 13 yo daughter Housing: Apartment Do you presently have visiting nurse or other home services: No Unable to assess alcohol history related to: Unknown Alcohol intake: never Patient Tobacco Use Status: Never used Tobacco e-Cigarette/Vaping Use: Never Used service: No Current occupational status: unemployed Sexual orientation: Straight/Heterosexual Cognitive needs: No Hearing needs: No Vision needs: No Questionnaire PHQ-9 Over the last 2 weeks, how often have you been bothered by any of the following problems? 1. Little interest or pleasure in doing things: not at all 2. Feeling down, depressed, or hopeless: not at all 3. Trouble falling or staying asleep, or sleeping too much: not at all 4. Feeling tired or having little energy: several days 5. Poor appetite or overeating: not at all 6. Feeling bad about yourself - or that you are a failure or have let yourself or your family down: not at all 7. Trouble concentrating on things, such as reading the newspaper or watching television: not at all 8. Moving or speaking so slowly that other people could have noticed. Or the opposite - being so fidgety or restless that you have been moving around a lot more than usual: not at all 9. Thoughts that you would be better off or of hurting yourself in some way: not at all Total score: 1 Depression Screening Interpretation: Negative Depression Screening Done: Yes [id number] - PHQ-9 Billing: Yes Source: Developed by Drs. Deandre Bateman, Corrie Cartwright, Sidney Garcia and colleagues, with an educational puneet from [employer]. Thrive Questionnaire Date Thrive assessed: 06/24/24 I am a: Patient What is your living situation today?: I have a steady place to live Within the past 12 months, did the food you bought not last and you didn't have the money to get more?: I choose not to answer this question Within the past 12 months, did you worry whether your food would run out before you got money to buy more?: Never true Do you have trouble paying for medicines?: No Do you have trouble getting transportation to medical appointments?: No Do you have trouble paying your heating and electricity bill?: No Do you have trouble taking care of your child, family member or friend?: No Do you have trouble with day-to-day activities such as bathing, preparing meals, shopping, managing finances, etc.?: No Are you currently unemployed and looking for a job?: No Are you interested in more education?: No Please select the resources that you would like help with: None Currently or been in a relationship where the following occur: No concerns reported THRIVE Score: 0 AUDIT C Alcohol Use Questionnaire (AUDIT-C) 1. How often do you have a drink containing alcohol?: Never 3. How often do you have six or more drinks on one occasion?: Never Total Score: 0 Score Reviewed/Action Taken: Yes TIKA-7 AMB Questionnaire TIKA-7 Date TIKA - 7 assessed: 06/24/24 Feeling nervous, anxious, or on edge: 0 = Not at all Not being able to stop or control worryin = Not at all Worrying too much about different things: 0 = Not at all Trouble relaxin = Not at all Being so restless that it is hard to sit still: 0 = Not at all Becoming easily annoyed or irritable: 0 = Not at all Feeling afraid as if something awful might happen: 0 = Not at all Total TIKA-7 score (0-4 normal; 5-9 mild; 10-14 moderate; 15-21 severe): 0 Source: Developed by Drs. Deandre Bateman, Corrie Cartwright, Sidney Garcia and colleagues, with an educational puenet from [employer]. TIKA-7 Assessment Billing TIKA-7 Assessment Tool: TIKA-7 Assessment 49636 Physical exam (Primary Care) Vital Signs: Last Vital Signs Pulse 86 06/24/24 11:16 BP 120/78 06/24/24 11:16 Pulse Ox 98 06/24/24 11:16 Oxygen Delivery Method Room Air 06/24/24 11:16 BMI result Body Mass Index 24.1 Tobacco/Smoking Status: Tobacco use Status Tobacco use date assessed 06/24/24 06/24/24 11:20 Patient Tobacco Use Status Never used Tobacco 06/24/24 11:20 e-Cigarette/Vaping Use Never Used 06/24/24 11:20 PHQ-9: PHQ-9 Score PHQ-9: Total score 1 06/24/24 11:59 Depression Screening Interpretation: Negative Thrive Assessment: Date of Thrive Assessment Date Thrive assessed 06/24/24 06/24/24 11:20 Currently or been in a relationship where the following occur: No concerns reported Coding Level of Care Code Est Pt Level 3 (16266) Complex EM visit Add On G2211 Diagnoses Lipid disorder E78.9 Additional Codes TIKA-7 Assessment Billing - TIKA-7 Assessment Tool: TIKA-7 Assessment 07440 ([id number]) PHQ-9 - 16167 - PHQ-9 Billing: Yes ([id number]) Assessment & Plan Assessment & Plan (1) Lipid disorder: Code(s): E78.9 - Disorder of lipoprotein metabolism, unspecified Category: Medical Plan History - bulleted - The patient is a 38 year old female presenting with follow-up for hyperlipidemia. - Elevated cholesterol noted with LDL at 179 mg/dL; target is less than 100 mg/dL. - Recent labs performed at the beginning of the year, cholesterol elevation determined during a previous appointment. - Medication discussion includes starting treatment for hyperlipidemia. - Continues management of hypothyroidism with levothyroxine; thyroid labs reportedly normal from recent tests. Management is through endocrinology - Major depressive disorder and bipolar disorder being managed with Abilify, fluoxetine, and lamotrigine. Management through Psychiatry - Fluoxetine dosage recently adjusted to 40 mg; patient no longer takes citalopram, replaced by fluoxetine Review of Systems Respiratory: Reports sneezing started this morning Gastrointestinal: Denies current constipation - General: No fever no chills - Neurological: No headaches no dizziness - Ear nose throat: No sore throat no hearing difficulty no ear pain - Cardiovascular: No syncope, no chest pain, no palpitations - Endocrine: No polyuria polydipsia no heat intolerance - Genitourinary: No dysuria , no blood in urine Physical Exam - General: No acute distress - HEENT: No acute findings - Neck: Supple - Respiratory system: Able to talk in full sentences, no audible wheeze - cardiovascular: S1-S2 regular in rate and rhythm - Gastrointestinal: No pain - Extremities: No new findings - TRAINING DIRECTOR: Alert awake oriented x3 , spastic gait but was able to get on examination table - Skin: Normal turgor Patient Instructions - Begin prescribed medication for hyperlipidemia, take it at night as directed. - Schedule fasting labs in two months to evaluate effectiveness of cholesterol medication. - Monitor for any side effects such as nausea, vomiting, or rash, and discontinue if symptoms occur. - Maintain routine thyroid medication as currently prescribed. - Follow up in December for a physical exam. - Report any increase in respiratory symptoms or changes in health promptly. Orders: Orders Lipid Panel 2 Months E78.9 - Disorder of lipoprotein metabolism, unspecified Liver Panel 2 Months E78.9 - Disorder of lipoprotein metabolism, unspecified Medications: New atorvastatin 20 mg PO BEDTIME 90 tabs 0RF Discontinued sertraline Discontinued Reason: Doctor's Order 100 mg PO BEDTIME 90 tabs 1RF
== END 2024-06-24 12:21 | disposition home or self-care (01) ==
PROVIDERS: PCP Internal Medicine; Visit Provider Internal Medicine
DX: E78.9 Disorder of lipoprotein metabolism, unspecified (principal)

== ENCOUNTER 2024-06-30 13:35 | Outpatient (AMB) | payer OTHER, MEDICAID, SELFPAY ==
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
[2024-06-30 13:37] VITALS: BP 112/68; PULSE 87; BMI 24.1
== END 2024-06-30 14:18 | disposition home or self-care (01) ==
PROVIDERS: PCP Internal Medicine; Visit Provider Student in an Organized Health Care Education/Training Program
DX: E06.3 Autoimmune thyroiditis (principal); R59.1 Generalized enlarged lymph nodes; E83.52 Hypercalcemia
CPT/HCPCS: 99214

== ENCOUNTER → 2024-06-30 13:35 | Outpatient (BNVA) | payer OTHER, MEDICAID, SELFPAY | PROVIDERS: PCP Internal Medicine; Visit Provider Student in an Organized Health Care Education/Training Program | DX: E06.3 Autoimmune thyroiditis (principal); R59.1 Generalized enlarged lymph nodes; E83.52 Hypercalcemia | CPT/HCPCS: 99212 ==

== ENCOUNTER 2024-08-20 11:12 | Outpatient (AMB) | payer OTHER, SELFPAY ==
[2024-08-20 11:25] VITALS: BP 110/68; PULSE 95; O2SAT 97; BMI 24.5
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
== END 2024-08-20 11:56 | disposition home or self-care (01) ==
PROVIDERS: PCP Internal Medicine; Visit Provider Nurse Practitioner Family
DX: G40.802 Other epilepsy, not intractable, without status epilepticus (principal); G81.94 Hemiplegia, unspecified affecting left nondominant side; S06.9X9A Unspecified intracranial injury with loss of consciousness of unspecified duration, initial encounter
CPT/HCPCS: 99214

== ENCOUNTER → 2024-08-20 11:12 | Outpatient (BNVA) | payer OTHER, SELFPAY | PROVIDERS: PCP Internal Medicine; Visit Provider Nurse Practitioner Family | DX: G40.802 Other epilepsy, not intractable, without status epilepticus (principal); G81.94 Hemiplegia, unspecified affecting left nondominant side; S06.9X9D Unspecified intracranial injury with loss of consciousness of unspecified duration, subsequent encounter; X58.XXXD Exposure to other specified factors, subsequent encounter | CPT/HCPCS: 99212 ==

== ENCOUNTER 2024-09-16 10:55 | Outpatient (REF) | payer OTHER, SELFPAY ==
[2024-09-16 13:13] LABS: MANUAL DIFF FLAG NO
[2024-09-16 13:25] LABS: Basophils Percent Auto 0.7 % (0-2); Eosinophils Absolute Auto 0.1 X10*3/uL (0.0-0.4); Eosinophils Percent Auto 2.1 % (0-4); Hematocrit 38.9 % (37.0-47.0); Hemoglobin 12.1 g/dl (12.0-16.0); Imm Gran Abs Auto 0.02 X10*3/uL (0.00-0.03); Imm Gran Pct Auto 0.4 % (0.0-0.4); Lymphocytes Absolute Auto 1.5 X10*3/uL (1.2-4.9); Lymphocytes Percent Auto 26.5 % (20-40); Mean Corpuscular HGB Conc 31.1 g/dl (31.0-35.0); Mean Corpuscular Hemoglobin 28.7 pg (27.0-33.0); Mean Corpuscular Volume 92.2 fL (80.0-98.0); Mean Platelet Volume 8.9 fL (9.4-12.3); Monocytes Absolute Auto 0.4 X10*3/uL (0.1-1.2); Monocytes Percent Auto 6.4 % (2-11); Neutrophils Absolute Auto 3.6 x10*3/uL (2.0-8.3); Neutrophils Percent Auto 63.9 % (45-73); Platelet Count 380 X10*3/uL (160-400); Red Blood Count 4.22 X10*6/uL (4.20-5.50); Red Cell Distribution Width 13.8 % (11.0-16.0); White Blood Count 5.6 X10*3/uL (4.8-10.8)
[2024-09-16 14:18] LABS: Albumin Level 4.2 g/dL (3.5-5.0); Calcium 9.8 mg/dL (8.4-10.2)
[2024-09-16 14:23] LABS: Alanine Aminotransferase 37 U/L (0-31); Albumin Level 4.3 g/dL (3.5-5.0); Alkaline Phosphatase 76 U/L (39-117); Anion Gap 10 (12-20); Aspartate Amino Transferase 22 U/L (5-31); Bilirubin Direct 0.2 mg/dL (0.0-0.5); Bilirubin Total 0.3 mg/dL (0.0-1.0); Blood Urea Nitrogen 15 mg/dL (9-16); Calcium 9.8 mg/dL (8.4-10.2); Carbon Dioxide 25 mmol/L (22-29); Chloride 110 mmol/L (96-108); Cholesterol 120 mg/dL (<200); Estimated Glomerular Filt Rate > 60; Glucose Fasting 91 mg/dL (60-99); Glucose Random 90 mg/dL (60-115); HDL Cholesterol 41 mg/dL (>40); LDL Cholesterol Calculated 68 mg/dL (<100); Potassium 4.2 mmol/L (3.3-5.1); Sodium 141 mmol/L (135-145); Triglycerides 58 mg/dL (<150)
[2024-09-16 14:24] LABS: Free T4 (Free Thyroxine) 1.03 ng/dL (0.71-1.85)
[2024-09-16 18:11] LABS: Parathyroid Hormone Intact 61.3 pg/mL (8.7-77.1)
[2024-09-17 13:34] LABS: Calcium, Ionized 5.3 mg/dL (4.7-5.5)
[2024-09-20 09:33] LABS: Lamotrigine Lamictal 11.2 mcg/mL (2.5-15.0)
[2024-09-20 18:14] LABS: Vitamin D 25-OH, D2 <4 ng/mL; Vitamin D 25-OH, D3 34 ng/mL; Vitamin D 25-OH, Total 34 ng/mL (30-100)
== END 2024-09-16 10:56 | disposition home or self-care (01) ==
LOC: HO.HMGCLDS 10:55
PROVIDERS: Student in an Organized Health Care Education/Training Program; PCP Internal Medicine; Referring Provider Nurse Practitioner Family; Visit Provider Internal Medicine
DX: G40.802 Other epilepsy, not intractable, without status epilepticus (principal); E78.9 Disorder of lipoprotein metabolism, unspecified; F33.2 Major depressive disorder, recurrent severe without psychotic features; E83.52 Hypercalcemia; E06.3 Autoimmune thyroiditis
CPT/HCPCS: 36415; 80053; 80061; 80175; 82040; 82248; 82306; 82310; 82330; 83970; 84100; 84439; 84443; 85025

== ENCOUNTER 2024-11-20 12:34 | Outpatient (AMB) | payer OTHER, SELFPAY ==
[2024-11-20 12:36] VITALS: BP 98/60; PULSE 79; O2SAT 98
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
== END 2024-11-20 12:51 | disposition home or self-care (01) ==
LOC: HO.ENCR 12:34
PROVIDERS: PCP Internal Medicine; Visit Provider Student in an Organized Health Care Education/Training Program
DX: E06.3 Autoimmune thyroiditis (principal); R59.1 Generalized enlarged lymph nodes; E83.52 Hypercalcemia
CPT/HCPCS: 99213

== ENCOUNTER → 2024-11-20 12:34 | Outpatient (BNVA) | payer OTHER, SELFPAY | PROVIDERS: PCP Internal Medicine; Visit Provider Student in an Organized Health Care Education/Training Program | DX: E06.3 Autoimmune thyroiditis (principal); E83.52 Hypercalcemia; R59.1 Generalized enlarged lymph nodes | CPT/HCPCS: 99212 ==

== ENCOUNTER 2024-12-30 12:32 | Outpatient (REF) | payer OTHER, SELFPAY ==
--- NOTE | ~2024-12-30 | US_ITS ---
EXAMINATION: US THYROID CLINICAL INFORMATION: Hypothyroidism. COMPARISON: February 27, 2024. TECHNIQUE: Linear transducer grayscale and color Doppler examination with attention to the region of the thyroid. FINDINGS: SIZE: Measurements of the thyroid lobes and nodules are given in sagittal, anteroposterior and transverse dimensions respectively. Right Thyroid Lobe: 4.6 x 2.0 x 1.1 cm, volume 5.3 mL. Previous: 4.9 x 2.4 x 1.7 cm, volume: 10.5 cc. Parenchyma: The gland echotexture is normal. Thyroid vascularity is increased. Left Thyroid Lobe: 3.5 x 1.9 x 1.5 cm, volume 4.6 mL. Previous: 4.7 x 2.2 x 1.8 cm, volume: 9.8 cc. Parenchyma: The gland echotexture is normal. Thyroid vascularity is increased. Isthmus: 0.5 cm in maximum AP dimension. Previous: 0.6 cm Estimated total number of nodules greater than or equal to 1 cm: 0. Product Safety Test Engineer nodules are described as follows: US/US thyroid IMPRESSION: ACR TI-RADS category: 0 ACR TI-RADS RECOMMENDATION REFERENCE: Ultrasound-guided fine-needle aspiration, followup ultrasound, no further follow up. * TR1 (0 point) and TR2 (2 points): No FNA or follow up. * TR3 (3 points): FNA if more than or equal to 2.5 cm in maximum dimension, followup ultrasound in 1, 3 and 5 years if 1.5 to 2.4 cm in maximum dimension. * TR4 (4-6 points): FNA if more than or equal to 1.5 cm in maximum dimension, followup ultrasound in 1, 2, 3 and 5 years if 1 to 1.4 cm in maximum dimension. * TR5 (more than or equal to 7 points): FNA if more than or equal to 1 cm in maximum dimension, followup ultrasound every year for 5 years if 0.5 to 0.9 cm in maximum dimension. * TR3, TR4 or TR5 nodules that are below the size threshold for followup receive no follow up. Electronically signed by: Tre Card MD 12/30/2024 02:04 PM EDT
== END 2024-12-30 12:33 | disposition home or self-care (01) ==
LOC: HO.HMGCX 12:32
PROVIDERS: PCP Internal Medicine; Visit Provider Student in an Organized Health Care Education/Training Program
DX: R59.1 Generalized enlarged lymph nodes (principal); E06.3 Autoimmune thyroiditis
CPT/HCPCS: 76536

== ENCOUNTER → 2024-12-30 13:04 | Outpatient (BNV) | payer OTHER, SELFPAY | PROVIDERS: PCP Internal Medicine; Visit Provider Radiology Diagnostic Radiology | DX: E03.9 Hypothyroidism, unspecified (principal) | CPT/HCPCS: 76536 ==

== ENCOUNTER 2025-01-09 11:22 | Outpatient (AMB) | payer OTHER, SELFPAY ==
[2025-01-09 11:24] VITALS: BP 106/70; PULSE 76; O2SAT 96; BMI 26.4
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
== END 2025-01-09 11:54 | disposition home or self-care (01) ==
LOC: HO.HMCC 11:23
PROVIDERS: PCP Internal Medicine; Visit Provider Internal Medicine
DX: Z00.01 Encounter for general adult medical examination with abnormal findings (principal); G40.802 Other epilepsy, not intractable, without status epilepticus; G81.94 Hemiplegia, unspecified affecting left nondominant side; R26.1 Paralytic gait; E03.8 Other specified hypothyroidism; E78.9 Disorder of lipoprotein metabolism, unspecified; F31.70 Bipolar disorder, currently in remission, most recent episode unspecified; Z99.3 Dependence on wheelchair; Z23 Encounter for immunization

== ENCOUNTER → 2025-01-09 11:22 | Outpatient (BNVA) | payer OTHER, SELFPAY | PROVIDERS: PCP Internal Medicine; Visit Provider Internal Medicine | DX: Z00.01 Encounter for general adult medical examination with abnormal findings (principal); E03.9 Hypothyroidism, unspecified; E78.5 Hyperlipidemia, unspecified; F31.9 Bipolar disorder, unspecified; R26.1 Paralytic gait; G40.802 Other epilepsy, not intractable, without status epilepticus; G81.94 Hemiplegia, unspecified affecting left nondominant side; E03.8 Other specified hypothyroidism; E78.9 Disorder of lipoprotein metabolism, unspecified; F31.70 Bipolar disorder, currently in remission, most recent episode unspecified; Z23 Encounter for immunization; Z99.3 Dependence on wheelchair; Z87.820 Personal history of traumatic brain injury | CPT/HCPCS: 90471; 90715; 96127; 99395 ==

== ENCOUNTER 2025-02-03 15:00 | Outpatient (RCR) | payer OTHER, SELFPAY ==
--- NOTE | 2025-02-09 14:14 | MHC.PT.DC ---
[facility] [place] [facility] [place] [facility] [place] [facility] [address] Asa Corona [address] [phone] F: [phone] F: [phone] F: [phone] F: [phone] Physical Therapy Discharge Report Diagnosis: spastic gait, gait instability and training (RL) Date of Surgery: N/A Date of Evaluation: 10/15/24 Date of Discharge: 02/09/25 Treatments to Date: 19 Cancellations to Date: 4 No Shows to Date: 0 Discharge Status: Improved Function Independent with HEP Discharge Summary: Pt has made good progress since SOC. She has improved her LE strength. She has improved her gait with hemiwalker on multidirectional path safely. She does continue to have L knee hyperextension and she reports she is going to follow up with provider to get her brace adjusted. At this time, she is independent with HEP. She is being D/C to HEP as she has reached a functional plateau with skilled PT. I provided pt with printed, updated copy of HEP. Pt has therabands. I discussed with pt the importance of continuing HEP. She reports no further questions for PT at this time Electronically signed by: Lacie Mancilla PT, DPT Please sign and return to therapist. Thank you for your referral.
== END 2025-02-09 14:14 | disposition home or self-care (01) ==
LOC: HO.PT 15:00
PROVIDERS: PCP Internal Medicine; Visit Provider Internal Medicine
DX: R26.1 Paralytic gait (principal)
CPT/HCPCS: 97110; 97112; 97116; 97162; 97530